=== PATIENT | male | born 1930 | race Caucasian/White ===

== ENCOUNTER 2017-08-16 18:54 | Inpatient (IN) | payer MEDICARE, OTHER ==
[~2017-08-16 18:54] MED LIST: Iopamidol 370 76% 100 ML VIAL ONE
[2017-08-16 20:10] LABS: Hematocrit 37.3 % (42.0-52.0); Mean Platelet Volume 7.7 fL (7.4-10.4); Red Blood Cell (RBC) Count 3.82 mill/uL (4.70-6.10); White Blood Cell (WBC) Count 20.6 thou/uL (4.8-10.8)
[2017-08-16 20:23] LABS: Lactic Acid - Sepsis 2.4 mmol/L (0.5-2.2)
[2017-08-16 20:27] LABS: ALT (SGPT) 13 U/L (8-55); AST (SGOT) 23 U/L (5-34); Alkaline Phosphatase 63 U/L (40-150); Anion Gap 13 mmol/L (10-20); BUN (Urea Nitrogen) 22 mg/dL (8.4-25.7); Bilirubin, Total 1.3 mg/dL (0.2-1.2); Calc. Creatinine Clearance 0 mL/min (70-130); Carbon Dioxide 24 mmol/L (23-31); Chloride 98 mmol/L (98-107); Estimated GFR-MDRD 61; Globulin 3.3 g/dL (2.4-3.5); Lipase 7 U/L (8-78); Protein, Total 6.8 g/dL (5.8-8.1)
[2017-08-16 20:32] LABS: Troponin I 0.082 ng/mL (< 0.028)
[2017-08-16 20:34] LABS: Band 17 % (5-11); Metamyelocyte 2 % (0-0); Neutrophil 65 % (42-75); Polychromasia SLIGHT = 2-3 cells (100X) (0-2/hpf); Reactive Lymphocytes 1 % (0-10)
[2017-08-16 20:36] LABS: Bilirubin Negative (Negative); Blood, Urine Negative (Negative); Glucose, Urine (Dipstick) Negative (Negative); Ketone, Urine Trace mg/dL (Negative); Nitrite Negative (Negative); Protein, Urine (Dipstick) Trace mg/dL (Neg-Trace)
--- NOTE | 2017-08-16 21:27 | RAD ---
AP CHEST: Indication: Vomiting. Comparison: 09-24-14 IMPRESSION: No acute cardiopulmonary abnormality is evident. The examination is similar to the comparison study. COMMENTS: No airspace consolidation is evident. Low lung volumes are again noted. Pulmonary vascular is within normal limits. Vascular calcifications are seen involving the aortic arch. Chronic osseous changes ar e similar. POS: [facility]
[2017-08-16] MEDS ORDERED: Piperacillin/Tazobactam 3.375 GM in Sodium Chloride 0.9% 100 ML IVPB SCH (22:15)
[2017-08-16 22:53] LABS: Troponin I 0.074 ng/mL (< 0.028)
[2017-08-17 01:26] LABS: Troponin I 0.093 ng/mL (< 0.028)
[2017-08-17] MEDS ORDERED: Ondansetron HCl/PF 4 MG/2 ML Vial ONE ×2 (03:48→07:26)
[2017-08-17] MEDS ORDERED: Acetaminophen 325 MG TAB PO PRN (04:45)
[2017-08-17] MEDS ORDERED: Acetaminophen 650 MG Suppository PR PRN (04:45)
--- NOTE | 2017-08-17 05:33 | HP ---
PRIMARY CARE PROVIDER: Eddy Priest. CHIEF COMPLAINT: Fever. HISTORY OF PRESENT ILLNESS: Mr. De La Cruz is a pleasant 87-year-old gentleman who was seen at [facility] on 08/17/2017. By the time I saw him, his family had left. History was obtained from the patient, review of medical records as well as discussion with the emergency room physician. He reportedly had a temperature of 104.2 degrees Fahrenheit 2 days ago. He received Tylenol, and the fever subsided. Yesterday morning, he woke up with fever again and received Tylenol. His fever continued, and patient had rigors. EMS was therefore called. He denies any cough. He denies any chest pain. He denies any diarrhea. He reports vomiting once in the emergency room. He denies any abdominal pain. He denies any dysuria or increased frequency of urination. He reports that all his joints are aching. He also reports left flank pain, but reports that it is chronic from postherpetic neuralgia. REVIEW OF SYSTEMS: The following complete review of systems was negative, unless otherwise mentioned in the HPI or below: Constitutional: Weight loss or gain, sense of well-being, ability to conduct usual activities, exercise tolerance. Skin/Breast: Rash, itching, changes in hair growth or loss, nail changes, breast lumps, tenderness, swelling, nipple discharge. Eyes: Vision, double vision, tearing, blind spots, pain. ENT/Mouth: Headaches (location, time of onset, duration, precipitating factors) , vertigo, lightheadedness, injury. Vision, double vision, tearing, blind spots , pain, nose bleeding, colds, obstruction, discharge, dental difficulties, gingival bleeding, dentures, neck stiffness, pain, tenderness, masses in thyroid or other areas. Cardiovascular: Precordial pain, substernal distress, palpitations, syncope, dyspnea on exertion, orthopnea, nocturnal paroxysmal dyspnea, edema, cyanosis, hypertension, heart murmurs, varicosities, phlebitis, claudication. Respiratory: Pain, shortness of breath, wheezing, stridor, cough, hemoptysis, fever or night sweats. Gastrointestinal: Poor appetite, dysphagia, indigestion, abdominal pain, heartburn, eructation, nausea, vomiting, hematemesis, jaundice, constipation, or diarrhea, abnormal stools (orlando-colored, tarry, bloody, greasy, foul smelling ), flatulence, hemorrhoids, recent changes in bowel habits. Genitourinary: Urgency, frequency, dysuria, nocturia, hematuria, polyuria, oliguria, unusual (or change in) color of urine, stones, hesitancy, change in size of stream, dribbling, acute retention or incontinence, libido, potency. Musculoskeletal: Pain, swelling, redness or heat of muscles or joints, limitation, of motion, muscular weakness, atrophy, cramps. Neurologic/Psychiatric: Convulsions, paralyses, tremor, incoordination, paraesthesias, difficulties with memory of speech, sensory or motor disturbances , or muscular coordination (ataxia, tremor), emotional problems, anxiety, depression, previous psychiatric care, unusual perceptions, hallucinations. Allergy/Immunologic: Skin rash, anemia, bleeding tendency, polydipsia, polyuria , intolerance to heat or cold. PAST MEDICAL HISTORY: Significant for congestive heart failure, diet- controlled diabetes type 2, chronic obstructive pulmonary disease, asthma, and postherpetic neuralgia. PAST SURGICAL HISTORY: Significant for appendectomy and finger repair after a saw accident. ALLERGIES: CIPROFLOXACIN, FELODIPINE, LATEX, LORATADINE, TIOTROPIUM, and VENLAFAXINE. CURRENT MEDICATIONS: Include finasteride 5 mg daily, fosinopril 40 mg 2 times a day, amlodipine 5 mg daily, Alfuzosin 10 mg at bedtime, tramadol 50 mg 3 times a day, Lasix 40 mg daily, metoprolol 12.5 mg 2 times a day, simvastatin 20 mg daily, gabapentin 300 mg 3 times a day, aspirin 81 mg daily. Patient also reportedly uses a lidocaine patch at home. SOCIAL HISTORY: Patient denies tobacco use, alcohol use or recreational drug use. FAMILY HISTORY: Patient denies any family history of premature coronary artery disease. CODE STATUS: I attempted to discuss his code status. I could not obtain his code status. This will need to be reassessed in the daytime. PHYSICAL EXAMINATION: GENERAL: Mr. De La Cruz is awake and alert, not in acute distress. VITAL SIGNS: Blood pressure is 143/50. Pulse is 76. He is breathing at rate of 22 and saturating 92% on 1 liter of oxygen. He is afebrile. EYES: No scleral icterus. No conjunctival pallor. ENT: Moist mucosal membranes, no oropharyngeal erythema or exudates. NECK: Supple, nontender, normal range of movement, trachea is midline. RESPIRATORY: Accessory muscles of breathing are not active. Chest wall movements are symmetric bilaterally. LUNGS: Clear to auscultation without wheeze, rhonchi or crepitations. CARDIOVASCULAR: S1 and S2 are heard, regular. Peripheral pulses palpable. No carotid bruit, no pericardial rub. ABDOMEN: Soft, nontender, bowel sounds heard, no hepatomegaly, no splenomegaly. NEUROLOGIC: Cranial nerves II through XII are intact. Deep tendon reflexes are 2+. MUSCULOSKELETAL: Power is 5/5 in all 4 extremities. 1+ bilateral lower extremity edema. SKIN: Multiple bruises over both upper extremities. LYMPHATIC: No cervical lymphadenopathy. PSYCHIATRIC: Normal mood and normal affect, patient is oriented to person and place, not to time. LABORATORY DATA AND IMAGING: Mr. De La Cruz's labs and investigations were reviewed. I reviewed his electrocardiogram, which shows sinus arrhythmia, no ST changes to suggest an acute coronary syndrome. I also reviewed his chest x- ray, which does not show any pulmonary infiltrates. He also had a CT scan of the abdomen and pelvis. The emergency room physician reports that there was no intraabdominal pathology, but he had developing pneumonia of the left lower lobe. Laboratory investigation showed leukocytosis with 20,600 white cells, of which 65% are neutrophils, 17% are bands, he has macrocytic anemia with hemoglobin 12.5, normal platelet count, elevated lactic acid level of 2.9, indeterminate troponin I of 0.093, elevated BNP of 188.6, decreased sodium of 131, normal potassium, elevated total bilirubin of 1.3, normal creatinine, normal AST, normal ALT and normal alkaline phosphatase. Urinalysis showed trace ketones. ASSESSMENT AND PLAN: Mr. De La Cruz is a pleasant 87-year-old gentleman who was seen at [facility] on 08/17/2017. His problem list includes: 1. Sepsis: Mr. De La Cruz is presenting with sepsis. One potential source of infection is the developing pneumonia seen on chest CT scan. Alternatively, he could have bacteremia. He will be admitted to the hospital and treated with broad spectrum antibiotics in the form of vancomycin and Zosyn. 2. Pneumonia: Suspected, continue Zosyn and vancomycin. 3. Hyponatremia: Mild, provide gentle hydration and recheck his sodium level. 4. Postherpetic neuralgia: Continue tramadol, lidocaine patch, and gabapentin. 5. Indeterminate troponin I, likely due to demand ischemia. Patient denies any chest pain. Continue to monitor. 6. Congestive heart failure. At this point, he is not in volume overload. Provide gentle hydration for sepsis and monitor for volume overload. 7. Hypertension: Monitor vital signs, titrate antihypertensives as needed. Many thanks for allowing me to participate in your patient's care. Please feel free to contact me with any questions or concerns. LEVEL OF RISK: High. LEVEL OF COMPLEXITY: High. MTDD
[2017-08-17] MEDS ORDERED: Acetaminophen 325 MG TAB ONE (05:34)
--- NOTE | 2017-08-17 07:16 | CT ---
CT OF THE ABDOMEN AND PELVIS WITH IV CONTRAST: Indication: History of fever without abdominal pain. Patient does report nausea. Comparison: Prior exam dated 09-24-14. FINDINGS: There a patchy area of peripheral opacity within the left lower lobe which may reflect an area of sub segmental volume loss; however, pneumonia cannot be entirely excluded. There is a small hiatal hernia . The liver and spleen appear within normal limits. The pancreas and adrenal glands are normal appearin g. There are small bilateral renal cysts. No enlarged lymph nodes or free fluid is evident. There are gallstones within the gallbladder. Calcifications involving the abdominal and pelvic vasculature. Prostate is enlarged. There is wall thickening involving the bladder. 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 There is diffuse osteopenia. There is scattered degene rative and osteoarthritic change. IMPRESSION: 1. Patchy opacity in the left lower lobe may reflect area of subsegmental atelectasis or developing p neumonia. Recommend correlation with clinical examination. 2. Prostate enlargement and bladder wall thickening. Bladder wall thickening is likely related to ольга dder outlet obstruction; however,cysttis cannot be entirely excluded. Correlation with urinary labora tory exam. 3. Cholelithiasis. 4. Bilateral renal cysts. 5. Small hiatal hernia. POS: [facility]
[2017-08-17] MEDS ORDERED: Ondansetron HCl/PF 4 MG/2 ML Vial IVP PRN (07:49)
[2017-08-17] MEDS ORDERED: Promethazine HCl 25 MG/ML VIAL ONE (08:25)
[2017-08-17] MEDS ORDERED: Pantoprazole 40 MG VIAL ONE (08:25)
[2017-08-17] MEDS ORDERED: Enoxaparin Sodium 40 MG/0.4 ML SYRINGE ONE (10:12)
[2017-08-17 11:45] VITALS: BMI 30.9
[2017-08-17] MEDS: Piperacillin/Tazobactam 3.375 GM in Sodium Chloride 0.9% 100 ML IVPB SCH ×2 (13:11→16:59)
[2017-08-17] MEDS: Vancomycin HCl 1 GM in Premix Bag 1 BAG IVPB SCH ×2 (13:12→20:59)
[2017-08-17] MEDS: Gabapentin 300 MG CAP PO SCH ×3 (13:12→20:58)
[2017-08-17] MEDS: Lidocaine 5% Patch TD SCH (13:13)
[2017-08-17] MEDS: Enoxaparin Sodium 40 MG/0.4 ML SYRINGE SC SCH (13:19)
[2017-08-17] MEDS: traMADol HCl 50 MG TAB PO PRN (13:24)
[2017-08-17 14:17] LABS: #Lymphocytes 1.4 thou/uL (1.20-3.40); #Monocytes 1.1 thou/uL (0.11-0.59); #Neutrophils 12.3 thou/uL (1.40-6.50); %Eosinophils 0.1 % (0.0-10.0); %Lymphocytes 9.1 % (21.0-51.0); %Monocytes 7.6 % (0.0-10.0); Hematocrit 35.6 % (42.0-52.0); Mean Platelet Volume 8.1 fL (7.4-10.4); Red Blood Cell (RBC) Count 3.64 mill/uL (4.70-6.10); White Blood Cell (WBC) Count 14.9 thou/uL (4.8-10.8)
[2017-08-17 14:18] LABS: Lactic Acid - Sepsis 1.9 mmol/L (0.5-2.2)
[2017-08-17 14:22] LABS: Anion Gap 12 mmol/L (10-20); BUN (Urea Nitrogen) 40 mg/dL (8.4-25.7); Calc. Creatinine Clearance 64 mL/min (70-130); Calcium 8.5 mg/dL (7.8-10.44); Carbon Dioxide 24 mmol/L (23-31); Chloride 99 mmol/L (98-107); Estimated GFR-MDRD 59
[2017-08-17] MEDS ORDERED: VANCOMYCIN IVPB PRN (14:24)
[2017-08-17] MEDS ORDERED: FLU VACC TS2017-18 (>65YR) 0.5 ML SYRINGE IM ONE (21:00)
[2017-08-18] MEDS: Piperacillin/Tazobactam 3.375 GM in Sodium Chloride 0.9% 100 ML IVPB SCH ×3 (01:01→11:12)
[2017-08-18] MEDS: Lidocaine Patch Removal 1 EACH TOP SCH ×2 (01:09→20:15)
[2017-08-18 06:17] LABS: #Eosinphils 0.1 thou/uL (0.0-0.7); #Lymphocytes 1.4 thou/uL (1.20-3.40); #Monocytes 1.2 thou/uL (0.11-0.59); #Neutrophils 9.6 thou/uL (1.40-6.50); %Basophils 0.3 % (0.0-1.0); %Eosinophils 0.6 % (0.0-10.0); %Lymphocytes 11.6 % (21.0-51.0); Hematocrit 35.5 % (42.0-52.0); Red Blood Cell (RBC) Count 3.63 mill/uL (4.70-6.10); White Blood Cell (WBC) Count 12.4 thou/uL (4.8-10.8)
[2017-08-18 06:30] LABS: Anion Gap 11 mmol/L (10-20); BUN (Urea Nitrogen) 42 mg/dL (8.4-25.7); Calc. Creatinine Clearance 79 mL/min (70-130); Calcium 8.6 mg/dL (7.8-10.44); Carbon Dioxide 26 mmol/L (23-31); Chloride 99 mmol/L (98-107); Estimated GFR-MDRD 75; Magnesium 1.9 mg/dL (1.6-2.6)
[2017-08-18] MEDS: traMADol HCl 50 MG TAB PO PRN ×2 (07:33→13:39)
[2017-08-18] MEDS: Lidocaine 5% Patch TD SCH (07:34)
[2017-08-18] MEDS: Vancomycin HCl 1 GM in Premix Bag 1 BAG IVPB SCH (07:34)
[2017-08-18] MEDS: Gabapentin 300 MG CAP PO SCH ×3 (07:34→20:15)
[2017-08-18] MEDS: Enoxaparin Sodium 40 MG/0.4 ML SYRINGE SC SCH (07:41)
--- NOTE | 2017-08-18 13:17 | PDOC.PN ---
- Subjective Encounter Start Date: 08/18/17 Encounter Start Time: 07:50 Pt feeling better today. No F/C, no N/V/D/C, no CP, no SOB, no cough or sputum , no GI bleed, no abd pain thigh less red and tender, no complaining of acute on chronic lateral right lower leg pain and tenderness to light touch. 10 point ROS performed and neg for all systems except as per HPI - Objective Resuscitation Status: full MAR Reviewed: Yes Vital Signs & Weight: Vital Signs (12 hours) Temp Pulse Resp BP Pulse Ox 08/18/17 11:36 98.5 F 86 18 120/66 90 L 08/18/17 08:00 97.8 F 80 22 H 135/73 94 L 08/18/17 04:00 98.7 F 83 18 134/64 93 L Weight Weight 228 lb 2.855 oz Most Recent Monitor Data Heart Rate from ECG 81 NIBP 122/41 NIBP BP-Mean 69 Respiration from ECG 16 SpO2 98 I&O: 08/17/17 08/18/17 08/19/17 06:59 06:59 06:59 Intake Total 1710 Output Total 915 Balance 795 Result Diagrams: 08/18/17 05:43 08/18/17 05:43 Additional Labs: Accuchecks 08/17/17 13:23 POC Glucose 218 H Radiology Reviewed by me: Yes EKG Reviewed by me: Yes Phys Exam - Physical Examination Constitutional: NAD HEENT: PERRLA, moist MMs, sclera anicteric, oral pharynx no lesions Neck: no nodes, no JVD, supple, full ROM Respiratory: no wheezing, no rales, no rhonchi, clear to auscultation bilateral Cardiovascular: no significant murmur, no rub, irregular Gastrointestinal: soft, non-tender, no distention, positive bowel sounds Musculoskeletal: pulses present, edema present right lower laterla leg red and war, tender, 2+ edema Neurological: non-focal, normal sensation, moves all 4 limbs Lymphatic: no nodes Psychiatric: normal affect, A&O x 3 Skin: no rash, normal turgor, cap refill <2 seconds Dx/Plan (1) Cellulitis of right lower extremity Code(s): L03.115 - CELLULITIS OF RIGHT LOWER LIMB Status: Acute Comment: RLE , lateral leg. change to clinda for 72 hours fo toxin inhibition and ancef (2) Bacteremia due to group B Streptococcus Code(s): R78.81 - BACTEREMIA Status: Acute Comment: 2/2 sets from admit positive, repeat 08/17 neg so far (3) COPD (chronic obstructive pulmonary disease) Status: Chronic Qualifiers: COPD type: unspecified COPD Qualified Code(s): J44.9 - Chronic obstructive pulmonary disease, unspecified (4) Diabetes Code(s): E11.9 - TYPE 2 DIABETES MELLITUS WITHOUT COMPLICATIONS Status: Chronic Qualifiers: Diabetes mellitus type: type 2 Diabetes mellitus complication status: with kidney complications Diabetes mellitus complication detail: with chronic kidney disease Diabetes mellitus termite control service representative insulin use: with halfway use Chronic kidney disease stage: stage 3 (moderate) Qualified Code(s): E11.22 - Type 2 diabetes mellitus with diabetic chronic kidney disease; N18.3 - Chronic kidney disease, stage 3 (moderate); N18.3 - Chronic kidney disease, stage 3 ( moderate); Z79.4 - nursing home (current) use of insulin; Z79.4 - nursing home ( current) use of insulin; Z79.4 - nursing home (current) use of insulin; Z79.4 - nursing home (current) use of insulin (5) Hypertension Code(s): I10 - ESSENTIAL (PRIMARY) HYPERTENSION Status: Chronic Qualifiers: Hypertension type: essential hypertension Qualified Code(s): I10 - Essential (primary) hypertension (6) Postherpetic neuralgia Code(s): B02.29 - OTHER POSTHERPETIC NERVOUS SYSTEM INVOLVEMENT Status: Chronic - Plan cont current plan of care, continue antibiotics, PT/OT, social organization professor * .
[2017-08-18] MEDS ORDERED: CEFAZOLIN 2 GM in Sodium Chloride 0.9% 100 ML IVPB SCH (14:00)
[2017-08-18] MEDS: Clindamycin/D5W 900 MG in Premix Bag 1 BAG IVPB SCH ×2 (14:19→20:15)
[2017-08-18] MEDS: CEFAZOLIN/Water 2 GM/20 ML SYRINGE SLOW IVP SCH ×2 (14:19→20:15)
[2017-08-19] MEDS: CEFAZOLIN/Water 2 GM/20 ML SYRINGE SLOW IVP SCH ×3 (04:44→20:06)
[2017-08-19] MEDS: Clindamycin/D5W 900 MG in Premix Bag 1 BAG IVPB SCH (04:44)
[2017-08-19 05:59] LABS: #Eosinphils 0.4 thou/uL (0.0-0.7); #Lymphocytes 1.5 thou/uL (1.20-3.40); #Monocytes 1.4 thou/uL (0.11-0.59); %Basophils 0.1 % (0.0-1.0); %Eosinophils 3.5 % (0.0-10.0); %Lymphocytes 12.4 % (21.0-51.0); %Monocytes 11.2 % (0.0-10.0); Hematocrit 33.4 % (42.0-52.0); Red Blood Cell (RBC) Count 3.42 mill/uL (4.70-6.10); White Blood Cell (WBC) Count 12.3 thou/uL (4.8-10.8)
[2017-08-19 06:17] LABS: Anion Gap 9 mmol/L (10-20); BUN (Urea Nitrogen) 30 mg/dL (8.4-25.7); Calc. Creatinine Clearance 89 mL/min (70-130); Calcium 8.6 mg/dL (7.8-10.44); Carbon Dioxide 28 mmol/L (23-31); Chloride 100 mmol/L (98-107); Estimated GFR-MDRD 86; Magnesium 1.9 mg/dL (1.6-2.6)
[2017-08-19] MEDS: Gabapentin 300 MG CAP PO SCH ×3 (07:47→20:06)
[2017-08-19] MEDS: Enoxaparin Sodium 40 MG/0.4 ML SYRINGE SC SCH (07:47)
[2017-08-19] MEDS: Lidocaine 5% Patch TD SCH (07:48)
--- NOTE | 2017-08-19 15:38 | PDOC.PN ---
- Subjective Encounter Start Date: 08/19/17 Encounter Start Time: 11:00 Pt feeling better, just got done with PT andis worn out, about to get a bed bath and take a nap no F/c, no N/V/D/C, less pain to right lower leg, no chils or rigors. cookie po fine. cookie ab 10 point ROS performed and neg for all except as per hPI - Objective MAR Reviewed: Yes Vital Signs & Weight: Vital Signs (12 hours) Temp Pulse Resp BP Pulse Ox 08/19/17 08:00 98.2 F 80 20 133/64 97 Weight Weight 228 lb 2.855 oz Most Recent Monitor Data Heart Rate from ECG 81 NIBP 122/41 NIBP BP-Mean 69 Respiration from ECG 16 SpO2 98 I&O: 08/18/17 08/19/17 08/20/17 06:59 06:59 06:59 Intake Total 1710 550 480 Output Total 915 Balance 795 550 480 Result Diagrams: 08/19/17 04:48 08/19/17 04:47 Radiology Reviewed by me: Yes EKG Reviewed by me: Yes Phys Exam - Physical Examination Constitutional: NAD HEENT: PERRLA, moist MMs, sclera anicteric, oral pharynx no lesions Neck: no nodes, no JVD, supple, full ROM Respiratory: no wheezing, no rales, no rhonchi, clear to auscultation bilateral Cardiovascular: RRR, no significant murmur, no rub Gastrointestinal: soft, non-tender, no distention, positive bowel sounds Musculoskeletal: pulses present, edema present Neurological: non-focal, normal sensation, moves all 4 limbs Lymphatic: no nodes Psychiatric: normal affect, A&O x 3 Skin: no rash, normal turgor, cap refill <2 seconds Dx/Plan (1) Cellulitis of right lower extremity Code(s): L03.115 - CELLULITIS OF RIGHT LOWER LIMB Status: Acute Comment: RLE , lateral leg. anceg IV. GBS resistnat to Clinda, so clinda stopped. (2) Bacteremia due to group B Streptococcus Code(s): R78.81 - BACTEREMIA Status: Acute Comment: 2/2 sets from admit positive, repeat 12/4 neg so far. needs 14 days total of Iv equivalent rx, would trnasition to po levoflox to complete 14 days total, and add in po keflex 500 tID to compelte 14 days for bactericidal activity against his strep cellulitis (3) COPD (chronic obstructive pulmonary disease) Status: Chronic Qualifiers: COPD type: unspecified COPD Qualified Code(s): J44.9 - Chronic obstructive pulmonary disease, unspecified (4) Diabetes Code(s): E11.9 - TYPE 2 DIABETES MELLITUS WITHOUT COMPLICATIONS Status: Chronic Qualifiers: Diabetes mellitus type: type 2 Diabetes mellitus complication status: with kidney complications Diabetes mellitus complication detail: with chronic kidney disease Diabetes mellitus assisted insulin use: with assisted use Chronic kidney disease stage: stage 3 (moderate) Qualified Code(s): E11.22 - Type 2 diabetes mellitus with diabetic chronic kidney disease; N18.3 - Chronic kidney disease, stage 3 (moderate); N18.3 - Chronic kidney disease, stage 3 ( moderate); Z79.4 - terminal system operator (current) use of insulin; Z79.4 - alf ( current) use of insulin; Z79.4 - alf (current) use of insulin; Z79.4 - terminal system operator (current) use of insulin (5) Hypertension Code(s): I10 - ESSENTIAL (PRIMARY) HYPERTENSION Status: Chronic Qualifiers: Hypertension type: essential hypertension Qualified Code(s): I10 - Essential (primary) hypertension (6) Postherpetic neuralgia Code(s): B02.29 - OTHER POSTHERPETIC NERVOUS SYSTEM INVOLVEMENT Status: Chronic - Plan cont current plan of care, continue antibiotics, 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
[2017-08-19] MEDS: Lidocaine Patch Removal 1 EACH TOP SCH (20:07)
[2017-08-20] MEDS: CEFAZOLIN/Water 2 GM/20 ML SYRINGE SLOW IVP SCH ×3 (04:57→20:05)
[2017-08-20 05:14] LABS: #Basophils 0.1 thou/uL (0.0-0.2); #Eosinphils 0.3 thou/uL (0.0-0.7); #Lymphocytes 2.1 thou/uL (1.20-3.40); #Monocytes 1.5 thou/uL (0.11-0.59); %Basophils 1.1 % (0.0-1.0); %Eosinophils 2.2 % (0.0-10.0); %Monocytes 11.5 % (0.0-10.0); Hematocrit 37.8 % (42.0-52.0); Mean Platelet Volume 7.8 fL (7.4-10.4); Red Blood Cell (RBC) Count 3.89 mill/uL (4.70-6.10); White Blood Cell (WBC) Count 12.9 thou/uL (4.8-10.8)
[2017-08-20 05:38] LABS: Anion Gap 13 mmol/L (10-20); BUN (Urea Nitrogen) 20 mg/dL (8.4-25.7); Calc. Creatinine Clearance 102 mL/min (70-130); Calcium 9.1 mg/dL (7.8-10.44); Carbon Dioxide 26 mmol/L (23-31); Chloride 100 mmol/L (98-107); Estimated GFR-MDRD Greater than 90; Magnesium 1.9 mg/dL (1.6-2.6)
[2017-08-20] MEDS: Lidocaine 5% Patch TD SCH (07:42)
[2017-08-20] MEDS: Gabapentin 300 MG CAP PO SCH ×3 (07:43→20:05)
[2017-08-20] MEDS: Enoxaparin Sodium 40 MG/0.4 ML SYRINGE SC SCH (07:43)
--- NOTE | 2017-08-20 12:31 | PDOC.PN ---
- Subjective Encounter Start Date: 08/20/17 Encounter Start Time: 12:30 doing a little better no f/c no n/v - Objective MAR Reviewed: Yes Vital Signs & Weight: Vital Signs (12 hours) Temp Pulse Resp BP Pulse Ox 08/20/17 08:00 98.1 F 72 22 H 159/57 H 98 Weight Weight 228 lb 2.855 oz Most Recent Monitor Data Heart Rate from ECG 81 NIBP 122/41 NIBP BP-Mean 69 Respiration from ECG 16 SpO2 98 I&O: 08/19/17 08/20/17 08/21/17 06:59 06:59 06:59 Intake Total 550 1110 240 Output Total 300 450 Balance 550 810 -210 Result Diagrams: 08/20/17 04:57 08/20/17 04:57 Phys Exam - Physical Examination Constitutional: NAD HEENT: PERRLA Neck: no JVD Respiratory: no wheezing Cardiovascular: no significant murmur Gastrointestinal: non-tender rt ankle swelling, erythema extending from ankle to groin of rt leg Neurological: normal sensation Psychiatric: A&O x 3 Dx/Plan (1) Sepsis Code(s): A41.9 - SEPSIS, UNSPECIFIED ORGANISM Status: Acute (2) Bacteremia due to group B Streptococcus Code(s): R78.81 - BACTEREMIA Status: Acute Comment: 2/2 sets from admit positive, repeat 08/17 neg so far. needs 14 days total of Iv equivalent rx, would trnasition to po levoflox to complete 14 days total, and add in po keflex 500 tID to compelte 14 days for bactericidal activity against his strep cellulitis (3) Cellulitis of right lower extremity Code(s): L03.115 - CELLULITIS OF RIGHT LOWER LIMB Status: Acute Comment: RLE , lateral leg. anceg IV. GBS resistnat to Clinda, so clinda stopped. (4) Diabetes Code(s): E11.9 - TYPE 2 DIABETES MELLITUS WITHOUT COMPLICATIONS Status: Chronic Qualifiers: Diabetes mellitus type: type 2 Diabetes mellitus complication status: with kidney complications Diabetes mellitus complication detail: with chronic kidney disease Diabetes mellitus termination clerk insulin use: with termination clerk use Chronic kidney disease stage: stage 3 (moderate) Qualified Code(s): E11.22 - Type 2 diabetes mellitus with diabetic chronic kidney disease; N18.3 - Chronic kidney disease, stage 3 (moderate); N18.3 - Chronic kidney disease, stage 3 ( moderate); Z79.4 - prison (current) use of insulin; Z79.4 - prison ( current) use of insulin; Z79.4 - prison (current) use of insulin; Z79.4 - long term care phlebotomist (current) use of insulin (5) Hypertension Code(s): I10 - ESSENTIAL (PRIMARY) HYPERTENSION Status: Chronic Qualifiers: Hypertension type: essential hypertension Qualified Code(s): I10 - Essential (primary) hypertension - Plan * cont abx * monitor clinically * xray rt ankle * f/u labs
[2017-08-20 12:38] LABS: Anion Gap 8 mmol/L (10-20); BUN (Urea Nitrogen) 19 mg/dL (8.4-25.7); Calc. Creatinine Clearance 108 mL/min (70-130); Calcium 8.6 mg/dL (7.8-10.44); Carbon Dioxide 31 mmol/L (23-31); Chloride 101 mmol/L (98-107); Estimated GFR-MDRD Greater than 90
--- NOTE | 2017-08-20 15:56 | RAD ---
THREE VIEWS OF THE RIGHT ANKLE 08/20/17 INDICATION: Right ankle pain. FINDINGS: There is prominent osteopenia of the right foreleg, hindfoot and visualized midfoot. No definite acut e fracture is evident. There are Monckeberg calcifications within the soft tissues. There is diffuse soft tissue edema of the lower right foreleg and visualized foot. IMPRESSION: 1. Diffuse osteopenia. 2. No acute fracture or subluxation. 3. Prominent soft tissue swelling of the right lower extremity. POS: [facility]
[2017-08-20] MEDS: Lidocaine Patch Removal 1 EACH TOP SCH (20:06)
[2017-08-20] MEDS ORDERED: Albuterol Sulfate 2.5 mg/3 ml Neb NEB PRN (20:32)
[2017-08-20] MEDS: Albuterol Sulfate 2.5 mg/3 ml Neb NEB SCH (23:15)
[2017-08-21] MEDS: Albuterol Sulfate 2.5 mg/3 ml Neb NEB SCH ×6 (02:52→22:19)
[2017-08-21] MEDS: CEFAZOLIN/Water 2 GM/20 ML SYRINGE SLOW IVP SCH (05:29)
[2017-08-21 05:45] LABS: #Eosinphils 0.2 thou/uL (0.0-0.7); #Lymphocytes 1.6 thou/uL (1.20-3.40); #Monocytes 1.1 thou/uL (0.11-0.59); #Neutrophils 6.2 thou/uL (1.40-6.50); %Basophils 0.1 % (0.0-1.0); %Eosinophils 2.7 % (0.0-10.0); %Monocytes 11.5 % (0.0-10.0); Hematocrit 33.5 % (42.0-52.0); Mean Platelet Volume 7.5 fL (7.4-10.4); Red Blood Cell (RBC) Count 3.44 mill/uL (4.70-6.10); White Blood Cell (WBC) Count 9.1 thou/uL (4.8-10.8)
[2017-08-21] MEDS ORDERED: Amlodipine 10 MG TAB PO SCH (06:00)
[2017-08-21] MEDS: Budesonide 0.5 MG/2 ML NEB INH SCH ×2 (06:03→18:30)
[2017-08-21] MEDS ORDERED: PROVENTIL INHALER 6.7 G (200 INHALATIONS) INH PRN (08:23)
[2017-08-21] MEDS ORDERED: Amlodipine 5 MG TAB PO SCH (09:00)
[2017-08-21] MEDS ORDERED: Non-Formulary Item 1 EACH (Budesonide-Formoterol [Symbicort 160-4.5] 2 PUFF) INH SCH (09:00)
[2017-08-21] MEDS: Lidocaine 5% Patch TD SCH (09:02)
[2017-08-21] MEDS: Enoxaparin Sodium 40 MG/0.4 ML SYRINGE SC SCH (09:02)
[2017-08-21] MEDS: Gabapentin 300 MG CAP PO SCH ×3 (09:02→20:24)
[2017-08-21] MEDS: Furosemide 40 MG TAB PO SCH (09:05)
[2017-08-21] MEDS: Metoprolol Tartrate 25 MG TAB PO SCH ×2 (09:05→20:24)
[2017-08-21] MEDS: Aspirin 81 mg Enteric Coated Tablet PO SCH (09:05)
[2017-08-21] MEDS: Finasteride 5 MG TAB PO SCH (09:10)
--- NOTE | 2017-08-21 10:31 | PDOC.PN ---
- Subjective Encounter Start Date: 08/21/17 Encounter Start Time: 10:50 Subjective: Patient with continued swelling of RLE worse with ambulation. No fever. -: Ambulating well with home walker and has daughter and son at home -: to help him get around. Doesn't want rehab. - Objective MAR Reviewed: Yes Vital Signs & Weight: Vital Signs (12 hours) Temp Pulse Resp BP BP Pulse Ox 08/21/17 09:36 67 16 95 08/21/17 07:53 98.4 F 67 16 188/68 H 95 08/21/17 06:25 98.5 F 74 18 178/66 H 96 08/21/17 06:23 74 178/66 H 08/21/17 06:03 74 16 96 08/21/17 02:52 72 18 98 08/21/17 01:12 97.7 F 75 20 186/68 H 98 08/20/17 23:15 76 22 H 96 Weight Weight 228 lb 2.855 oz Most Recent Monitor Data Heart Rate from ECG 81 NIBP 122/41 NIBP BP-Mean 69 Respiration from ECG 16 SpO2 98 I&O: 08/20/17 08/21/17 08/22/17 06:59 06:59 06:59 Intake Total 1110 720 120 Output Total 300 450 Balance 810 270 120 Result Diagrams: 08/21/17 04:28 08/20/17 11:55 Phys Exam - Physical Examination Constitutional: NAD HEENT: moist MMs Respiratory: no wheezing, no rales, no rhonchi Cardiovascular: RRR Gastrointestinal: soft, positive bowel sounds Edema to RLE up to groin, erythema bright to right mondragon, mild to posterior knee and thigh in dependent edema area. Neurological: non-focal, moves all 4 limbs Psychiatric: normal affect, A&O x 3 Dx/Plan (1) Bacteremia due to group B Streptococcus Code(s): R78.81 - BACTEREMIA Status: Acute Comment: 2/2 sets from admit positive, repeat 08/17 neg so far. needs 14 days total of Iv equivalent rx, would trnasition to po levoflox to complete 14 days total, and add in po keflex 500 tID to compelte 14 days for bactericidal activity against his strep cellulitis (2) Cellulitis of right lower extremity Code(s): L03.115 - CELLULITIS OF RIGHT LOWER LIMB Status: Acute Comment: RLE , mostle to mondragon, GBS resistnat to Clinda, so clinda stopped. Will treat edema with compression wraps. (3) Sepsis Code(s): A41.9 - SEPSIS, UNSPECIFIED ORGANISM Status: Acute (4) Diabetes Code(s): E11.9 - TYPE 2 DIABETES MELLITUS WITHOUT COMPLICATIONS Status: Chronic Qualifiers: Diabetes mellitus type: type 2 Diabetes mellitus complication status: with kidney complications Diabetes mellitus complication detail: with chronic kidney disease Diabetes mellitus dedicated intermodal truck driver insulin use: with dedicated intermodal truck driver use Chronic kidney disease stage: stage 3 (moderate) Qualified Code(s): E11.22 - Type 2 diabetes mellitus with diabetic chronic kidney disease; N18.3 - Chronic kidney disease, stage 3 (moderate); N18.3 - Chronic kidney disease, stage 3 ( moderate); Z79.4 - intermediate (current) use of insulin; Z79.4 - intermediate ( current) use of insulin; Z79.4 - oil heaterman (current) use of insulin; Z79.4 - oil heaterman (current) use of insulin (5) Hypertension Code(s): I10 - ESSENTIAL (PRIMARY) HYPERTENSION Status: Chronic Qualifiers: Hypertension type: essential hypertension Qualified Code(s): I10 - Essential (primary) hypertension Comment: Resume JOSELINE-I (6) Postherpetic neuralgia Code(s): B02.29 - OTHER POSTHERPETIC NERVOUS SYSTEM INVOLVEMENT Status: Chronic - Plan cont current plan of care, continue antibiotics, PT/OT Leukocytosis resolved, will transition to oral abx today, D/C tomorrow if -: tolerating well. Patient with RW at home, help from children. -: Patient does have redness up to groin, but only bright red is on mondragon, ass -: with edema, will have PT do compression raps to extremity. * . - Discharge Day Encounter end time: 11:10
[2017-08-21] MEDS: traMADol HCl 50 MG TAB PO PRN ×2 (14:20→20:35)
[2017-08-21] MEDS: Cephalexin 250 MG CAP PO SCH ×2 (14:21→20:23)
[2017-08-21] MEDS: Simvastatin 20 MG TAB PO SCH (20:24)
[2017-08-21] MEDS: Lidocaine Patch Removal 1 EACH TOP SCH (20:32)
[2017-08-21] MEDS ORDERED: (Alfuzosin Hcl [Alfuzosin Hcl Er] 10 MG) PO SCH (21:00)
[2017-08-22] MEDS ORDERED: Melatonin 3 MG TAB PO SCH (01:00)
[2017-08-22] MEDS: Albuterol Sulfate 2.5 mg/3 ml Neb NEB SCH ×4 (02:44→18:19)
[2017-08-22 05:29] LABS: #Eosinphils 0.5 thou/uL (0.0-0.7); #Lymphocytes 1.6 thou/uL (1.20-3.40); #Monocytes 1.1 thou/uL (0.11-0.59); %Basophils 0.1 % (0.0-1.0); %Eosinophils 5.2 % (0.0-10.0); %Lymphocytes 17.4 % (21.0-51.0); %Monocytes 11.8 % (0.0-10.0); Hematocrit 31.9 % (42.0-52.0); Mean Platelet Volume 6.9 fL (7.4-10.4); Red Blood Cell (RBC) Count 3.29 mill/uL (4.70-6.10); White Blood Cell (WBC) Count 9.2 thou/uL (4.8-10.8)
[2017-08-22] MEDS: Budesonide 0.5 MG/2 ML NEB INH SCH ×2 (05:49→18:19)
[2017-08-22 06:46] LABS: Anion Gap 10 mmol/L (10-20); BUN (Urea Nitrogen) 17 mg/dL (8.4-25.7); Calc. Creatinine Clearance 113 mL/min (70-130); Calcium 8.2 mg/dL (7.8-10.44); Carbon Dioxide 30 mmol/L (23-31); Chloride 100 mmol/L (98-107); Estimated GFR-MDRD Greater than 90
[2017-08-22] MEDS ORDERED: Clopidogrel Bisulfate 75 MG TAB ONE (06:48)
[2017-08-22] MEDS: Lidocaine 5% Patch TD SCH (08:13)
[2017-08-22] MEDS: Metoprolol Tartrate 25 MG TAB PO SCH ×2 (08:14→20:08)
[2017-08-22] MEDS: Amlodipine 10 MG TAB PO SCH (08:14)
[2017-08-22] MEDS: Aspirin 81 mg Enteric Coated Tablet PO SCH (08:14)
[2017-08-22] MEDS: Gabapentin 300 MG CAP PO SCH ×3 (08:14→20:08)
[2017-08-22] MEDS: Enoxaparin Sodium 40 MG/0.4 ML SYRINGE SC SCH (08:15)
[2017-08-22] MEDS: Furosemide 40 MG TAB PO SCH (08:15)
[2017-08-22] MEDS: Finasteride 5 MG TAB PO SCH (08:18)
[2017-08-22] MEDS: traMADol HCl 50 MG TAB PO PRN ×2 (08:18→20:12)
--- NOTE | 2017-08-22 08:39 | PDOC.PN ---
- Subjective Encounter Start Date: 08/22/17 Encounter Start Time: 11:00 Subjective: Patient feeling a little better. Not on home dose of Gabapentin so post-her -: petic neuralgia acting up. Pain behind right knee and in right leg. Redness -: unchanged. - Objective MAR Reviewed: Yes Vital Signs & Weight: Vital Signs (12 hours) Temp Pulse Resp BP Pulse Ox 08/22/17 08:14 68 08/22/17 07:36 97.9 F 68 16 173/69 H 95 08/22/17 05:49 75 14 95 08/22/17 05:01 97.9 F 62 18 144/70 H 97 08/22/17 02:44 12 93 L 08/22/17 02:29 95 08/21/17 22:19 73 16 96 08/21/17 22:18 98.6 F 73 20 96 Weight Weight 228 lb 2.855 oz Most Recent Monitor Data Heart Rate from ECG 81 NIBP 122/41 NIBP BP-Mean 69 Respiration from ECG 16 SpO2 98 I&O: 08/21/17 08/22/17 08/23/17 06:59 06:59 06:59 Intake Total 720 1360 350 Output Total 450 1200 450 Balance 270 160 -100 Result Diagrams: 08/22/17 04:16 08/22/17 04:16 Phys Exam - Physical Examination Constitutional: NAD HEENT: moist MMs Respiratory: no wheezing, no rales, no rhonchi Cardiovascular: RRR Gastrointestinal: soft 1+ dependent edema to entire RLE, erythema to mondragon only, appears stable Neurological: non-focal, moves all 4 limbs Psychiatric: normal affect, A&O x 3 Dx/Plan (1) Bacteremia due to group B Streptococcus Code(s): R78.81 - BACTEREMIA Status: Acute Comment: 2/2 sets from admit positive, repeat 08/17 neg so far. needs 14 days total of Iv equivalent rx, would trnasition to po levoflox to complete 14 days total, and add in po keflex 500 tID to compelte 14 days for bactericidal activity against his strep cellulitis (2) Cellulitis of right lower extremity Code(s): L03.115 - CELLULITIS OF RIGHT LOWER LIMB Status: Acute Comment: RLE , mostle to mondragon, GBS resistnat to Clinda, so clinda stopped. Will treat edema with compression wraps. (3) Sepsis Code(s): A41.9 - SEPSIS, UNSPECIFIED ORGANISM Status: Acute (4) Diabetes Code(s): E11.9 - TYPE 2 DIABETES MELLITUS WITHOUT COMPLICATIONS Status: Chronic Qualifiers: Diabetes mellitus type: type 2 Diabetes mellitus complication status: with kidney complications Diabetes mellitus complication detail: with chronic kidney disease Diabetes mellitus extermination inspector insulin use: with snf use Chronic kidney disease stage: stage 3 (moderate) Qualified Code(s): E11.22 - Type 2 diabetes mellitus with diabetic chronic kidney disease; N18.3 - Chronic kidney disease, stage 3 (moderate); N18.3 - Chronic kidney disease, stage 3 ( moderate); 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; Z79.4 - intermediate school teacher ( current) use of insulin; Z79.4 - detention (current) use of insulin; 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 Afebrile. -: Will try compression wraps on extremity. Will arrange home health for wound -: care and compression wraps for edema. Anticipate d/c on Thursday once Home -: Health arranged and compression wraps started. * . - Discharge Day Encounter end time: 11:40
[2017-08-22] MEDS: Cephalexin 250 MG CAP PO SCH ×3 (09:46→20:08)
[2017-08-22] MEDS ORDERED: traMADol HCl 50 MG TAB PO SCH (15:00)
[2017-08-22] MEDS: Simvastatin 20 MG TAB PO SCH (20:08)
[2017-08-22] MEDS: Lidocaine Patch Removal 1 EACH TOP SCH (20:08)
[2017-08-23] MEDS: Albuterol Sulfate 2.5 mg/3 ml Neb NEB SCH ×4 (02:18→19:41)
[2017-08-23] MEDS: Budesonide 0.5 MG/2 ML NEB INH SCH ×2 (05:55→19:45)
[2017-08-23] MEDS: Lidocaine 5% Patch TD SCH (07:45)
[2017-08-23] MEDS: Cephalexin 250 MG CAP PO SCH ×3 (07:45→20:49)
[2017-08-23] MEDS: Gabapentin 300 MG CAP PO SCH ×3 (07:47→20:50)
[2017-08-23] MEDS: Finasteride 5 MG TAB PO SCH (07:48)
[2017-08-23] MEDS: Enoxaparin Sodium 40 MG/0.4 ML SYRINGE SC SCH (07:48)
[2017-08-23] MEDS: Metoprolol Tartrate 25 MG TAB PO SCH ×2 (07:48→20:50)
[2017-08-23] MEDS: Furosemide 40 MG TAB PO SCH (07:48)
[2017-08-23] MEDS: Aspirin 81 mg Enteric Coated Tablet PO SCH (07:48)
[2017-08-23] MEDS: Amlodipine 10 MG TAB PO SCH (07:49)
[2017-08-23] MEDS: traMADol HCl 50 MG TAB PO PRN ×2 (11:11→20:50)
--- NOTE | 2017-08-23 15:34 | PDOC.PN ---
- Subjective Encounter Start Date: 08/23/17 Encounter Start Time: 10:00 Subjective: feels better, moves his right LE well - Objective MAR Reviewed: Yes Vital Signs & Weight: Vital Signs (12 hours) Temp Pulse Resp BP Pulse Ox 08/23/17 11:40 80 14 95 08/23/17 08:00 98.5 F 78 20 95 08/23/17 07:51 98.5 F 78 20 184/66 H 92 L 08/23/17 07:49 72 08/23/17 05:55 72 16 94 L Weight Weight 228 lb 2.855 oz Most Recent Monitor Data Heart Rate from ECG 81 NIBP 122/41 NIBP BP-Mean 69 Respiration from ECG 16 SpO2 98 I&O: 08/22/17 08/23/17 08/24/17 06:59 06:59 06:59 Intake Total 1360 1790 480 Output Total 1200 2000 Balance 160 -210 480 Result Diagrams: 08/22/17 04:16 08/22/17 04:16 Phys Exam - Physical Examination HEENT: PERRLA, moist MMs Neck: no JVD, supple Respiratory: no wheezing, no rales Cardiovascular: RRR, no significant murmur Gastrointestinal: soft, non-tender, positive bowel sounds Musculoskeletal: pulses present right leg there is erythema and edema++ Neurological: non-focal, moves all 4 limbs Psychiatric: A&O x 3 Dx/Plan (1) Bacteremia due to group B Streptococcus Code(s): R78.81 - BACTEREMIA Status: Acute (2) Cellulitis of right lower extremity Code(s): L03.115 - CELLULITIS OF RIGHT LOWER LIMB Status: Acute Comment: RLE , mostle to mondragon, GBS resistnat to Clinda, so clinda stopped. Will treat edema with compression wraps. 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 Status: Chronic Qualifiers: Diabetes mellitus type: type 2 Diabetes mellitus complication status: with kidney complications Diabetes mellitus complication detail: with chronic kidney disease Diabetes mellitus longterm insulin use: with longterm use Chronic kidney disease stage: stage 3 (moderate) Qualified Code(s): E11.22 - Type 2 diabetes mellitus with diabetic chronic kidney disease; N18.3 - Chronic kidney disease, stage 3 (moderate); N18.3 - Chronic kidney disease, stage 3 ( moderate); Z79.4 - longterm (current) use of insulin; 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; 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; 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 Review of Systems - Medications/Allergies Allergies/Adverse Reactions: Allergies Allergy/AdvReac Type Severity Reaction Status Date / Time ciprofloxacin [From Cipro] Allergy Verified 09/24/14 03:31 ciprofloxacin HCl Allergy Verified 09/24/14 03:31 [From Cipro] felodipine Allergy Verified 09/24/14 03:31 loratadine Allergy Verified 09/24/14 03:31 tiotropium bromide Allergy Verified 09/24/14 03:31 [From Spiriva with HandiHaler] venlafaxine HCl Allergy Verified 09/24/14 03:31 [From Effexor] Medications: Current Medications Acetaminophen (Tylenol) 650 mg PO Q4H PRN PRN Reason: Headache/Fever or Pain Last Admin: 08/22/17 03:00 Dose: 650 mg Acetaminophen (Tylenol) 650 mg [place] Q4H PRN PRN Reason: Headache/Fever or Pain Albuterol Sulfate (Ventolin) 2.5 mg NEB Q2H PRN PRN Reason: SOB &/or Wheezing Albuterol Sulfate (Proventil Hfa) 2 puff INH Q4H PRN PRN Reason: SOB &/or Wheezing Albuterol Sulfate (Ventolin) 2.5 mg NEB [id number] [facility] Last Admin: 08/23/17 11:40 Dose: 2.5 mg Amlodipine Besylate (Norvasc) 10 mg PO DAILY [facility] Last Admin: 08/23/17 07:49 Dose: 10 mg Aspirin (Ecotrin) 81 mg PO DAILY [facility] Last Admin: 08/23/17 07:48 Dose: 81 mg Budesonide (Pulmicort Neb Solution) 0.5 mg INH BID-RT [facility] Last Admin: 08/23/17 05:55 Dose: 0.5 mg Cephalexin (Keflex) 500 mg PO TID [facility] Last Admin: 08/23/17 15:09 Dose: 500 mg Enoxaparin Sodium (Lovenox) 40 mg SC 0900 [facility] Last Admin: 08/23/17 07:48 Dose: 40 mg Finasteride (Proscar) 5 mg PO DAILY [facility] Last Admin: 08/23/17 07:48 Dose: 5 mg Fosinopril Sodium (Monopril) 40 mg PO BID [facility] Last Admin: 08/23/17 07:45 Dose: 40 mg Furosemide (Lasix) 40 mg PO DAILY [facility] Last Admin: 08/23/17 07:48 Dose: 40 mg Gabapentin (Neurontin) 900 mg PO TID [facility] Last Admin: 08/23/17 15:09 Dose: 900 mg Levofloxacin (Levaquin) 500 mg PO 0600 [facility] Last Admin: 08/23/17 05:51 Dose: 500 mg Lidocaine (Lidoderm 5% Patch) 1 patch TD DAILY [facility] Last Admin: 08/23/17 07:45 Dose: 1 patch Metoprolol Tartrate (Lopressor) 12.5 mg PO BID [facility] Last Admin: 08/23/17 07:48 Dose: 12.5 mg Miscellaneous Medication (Lidocaine Patch Removal) 1 each TOP 2100 [facility] Last Admin: 08/22/17 20:08 Dose: 1 each Ondansetron HCl (Zofran) 4 mg IVP Q4H PRN PRN Reason: Nausea/Vomiting (Alfuzosin Hcl [ Alfuzosin Hcl Er] 10 Mg) 0 each PO QPM [facility] Simvastatin (Zocor) 20 mg PO QPM [facility] Last Admin: 08/22/17 20:08 Dose: 20 mg Sodium Chloride (Flush - Normal Saline) 10 ml IVF Q12HR [facility] Last Admin: 08/23/17 07:49 Dose: 10 ml Sodium Chloride (Flush - Normal Saline) 10 ml IVF PRN PRN PRN Reason: Saline Flush Last Admin: 08/20/17 04:57 Dose: 10 ml Tramadol HCl (Ultram) 50 mg PO Q6H PRN PRN Reason: Pain Last Admin: 08/23/17 11:11 Dose: 50 mg
[2017-08-23] MEDS: Simvastatin 20 MG TAB PO SCH (20:50)
[2017-08-23] MEDS: Lidocaine Patch Removal 1 EACH TOP SCH (20:51)
[2017-08-24] MEDS: Albuterol Sulfate 2.5 mg/3 ml Neb NEB SCH ×2 (01:02→08:34)
[2017-08-24] MEDS: Aspirin 81 mg Enteric Coated Tablet PO SCH (08:16)
[2017-08-24] MEDS: Gabapentin 300 MG CAP PO SCH (08:17)
[2017-08-24] MEDS: Furosemide 40 MG TAB PO SCH (08:17)
[2017-08-24] MEDS: Amlodipine 10 MG TAB PO SCH (08:18)
[2017-08-24] MEDS: Metoprolol Tartrate 25 MG TAB PO SCH (08:18)
[2017-08-24] MEDS: Cephalexin 250 MG CAP PO SCH (08:18)
[2017-08-24] MEDS: Finasteride 5 MG TAB PO SCH (08:18)
[2017-08-24] MEDS: Lidocaine 5% Patch TD SCH (08:19)
[2017-08-24] MEDS: Enoxaparin Sodium 40 MG/0.4 ML SYRINGE SC SCH (08:20)
[2017-08-24] MEDS: Budesonide 0.5 MG/2 ML NEB INH SCH (08:36)
--- NOTE | 2017-08-24 11:34 | PDOC.PN ---
- Subjective Encounter Start Date: 08/24/17 Encounter Start Time: 07:00 Subjective: feels better, wants to go home -: has amb 70ft with rw -: has compression bandage at home - Objective MAR Reviewed: Yes Vital Signs & Weight: Vital Signs (12 hours) Temp Pulse Resp BP Pulse Ox 08/24/17 09:49 91 L 08/24/17 08:34 79 16 95 08/24/17 08:00 98.4 F 79 16 08/24/17 07:28 98.4 F 77 18 163/71 H 97 08/24/17 07:00 95 08/24/17 01:02 12 Weight Weight 228 lb 2.855 oz Most Recent Monitor Data Heart Rate from ECG 81 NIBP 122/41 NIBP BP-Mean 69 Respiration from ECG 16 SpO2 98 I&O: 08/23/17 08/24/17 08/25/17 06:59 06:59 06:59 Intake Total 1790 1680 Output Total 1999 Balance -210 1680 Result Diagrams: 08/22/17 04:16 08/22/17 04:16 Phys Exam - Physical Examination HEENT: PERRLA, moist MMs Neck: no JVD, supple Respiratory: no wheezing, no rales Cardiovascular: RRR, no significant murmur Gastrointestinal: soft, non-tender, positive bowel sounds Musculoskeletal: pulses present, edema present Right LE has erythema and edema++ Neurological: non-focal, moves all 4 limbs Psychiatric: A&O x 3 Dx/Plan (1) Bacteremia due to group B Streptococcus Code(s): R78.81 - BACTEREMIA Status: Acute (2) Cellulitis of right lower extremity Code(s): L03.115 - CELLULITIS OF RIGHT LOWER LIMB Status: Acute Comment: RLE , mostle to mondragon, GBS resistnat to Clinda, so clinda stopped. Will treat edema with compression wraps. 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 Status: Chronic Qualifiers: Diabetes mellitus type: type 2 Diabetes mellitus complication status: with kidney complications Diabetes mellitus complication detail: with chronic kidney disease Diabetes mellitus senior care insulin use: with senior care use Chronic kidney disease stage: stage 3 (moderate) Qualified Code(s): E11.22 - Type 2 diabetes mellitus with diabetic chronic kidney disease; N18.3 - Chronic kidney disease, stage 3 (moderate); N18.3 - Chronic kidney disease, stage 3 ( moderate); 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; Z79.4 - superintendent marine oil terminal ( current) use of insulin; 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; 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 Review of Systems - Medications/Allergies Allergies/Adverse Reactions: Allergies Allergy/AdvReac Type Severity Reaction Status Date / Time ciprofloxacin [From Cipro] Allergy Verified 09/24/14 03:31 ciprofloxacin HCl Allergy Verified 09/24/14 03:31 [From Cipro] felodipine Allergy Verified 09/24/14 03:31 loratadine Allergy Verified 09/24/14 03:31 tiotropium bromide Allergy Verified 09/24/14 03:31 [From Spiriva with HandiHaler] venlafaxine HCl Allergy Verified 09/24/14 03:31 [From Effexor] Medications: Current Medications Acetaminophen (Tylenol) 650 mg PO Q4H PRN PRN Reason: Headache/Fever or Pain Last Admin: 08/22/17 03:00 Dose: 650 mg Acetaminophen (Tylenol) 650 mg [place] Q4H PRN PRN Reason: Headache/Fever or Pain Albuterol Sulfate (Ventolin) 2.5 mg NEB Q2H PRN PRN Reason: SOB &/or Wheezing Albuterol Sulfate (Proventil Hfa) 2 puff INH Q4H PRN PRN Reason: SOB &/or Wheezing Albuterol Sulfate (Ventolin) 2.5 mg NEB [id number] [facility] Last Admin: 08/24/17 08:34 Dose: 2.5 mg Amlodipine Besylate (Norvasc) 10 mg PO DAILY [facility] Last Admin: 08/24/17 08:18 Dose: 10 mg Aspirin (Ecotrin) 81 mg PO DAILY [facility] Last Admin: 08/24/17 08:16 Dose: 81 mg Budesonide (Pulmicort Neb Solution) 0.5 mg INH BID-RT [facility] Last Admin: 08/24/17 08:36 Dose: 0.5 mg Cephalexin (Keflex) 500 mg PO TID [facility] Last Admin: 08/24/17 08:18 Dose: 500 mg Enoxaparin Sodium (Lovenox) 40 mg SC 0900 [facility] Last Admin: 08/24/17 08:20 Dose: 40 mg Finasteride (Proscar) 5 mg PO DAILY [facility] Last Admin: 08/24/17 08:18 Dose: 5 mg Fosinopril Sodium (Monopril) 40 mg PO BID [facility] Last Admin: 08/24/17 08:18 Dose: 40 mg Furosemide (Lasix) 40 mg PO DAILY [facility] Last Admin: 08/24/17 08:17 Dose: 40 mg Gabapentin (Neurontin) 900 mg PO TID [facility] Last Admin: 08/24/17 08:17 Dose: 900 mg Levofloxacin (Levaquin) 500 mg PO 0600 [facility] Last Admin: 08/24/17 05:45 Dose: 500 mg Lidocaine (Lidoderm 5% Patch) 1 patch TD DAILY [facility] Last Admin: 08/24/17 08:19 Dose: Not Given Metoprolol Tartrate (Lopressor) 12.5 mg PO BID [facility] Last Admin: 08/24/17 08:18 Dose: 12.5 mg Miscellaneous Medication (Lidocaine Patch Removal) 1 each TOP 2100 [facility] Last Admin: 08/23/17 20:51 Dose: 1 each Ondansetron HCl (Zofran) 4 mg IVP Q4H PRN PRN Reason: Nausea/Vomiting (Alfuzosin Hcl [ Alfuzosin Hcl Er] 10 Mg) 0 each PO QPM [facility] Simvastatin (Zocor) 20 mg PO QPM [facility] Last Admin: 08/23/17 20:50 Dose: 20 mg Sodium Chloride (Flush - Normal Saline) 10 ml IVF Q12HR [facility] Last Admin: 08/24/17 08:19 Dose: 10 ml Sodium Chloride (Flush - Normal Saline) 10 ml IVF PRN PRN PRN Reason: Saline Flush Last Admin: 08/20/17 04:57 Dose: 10 ml Tramadol HCl (Ultram) 50 mg PO Q6H PRN PRN Reason: Pain Last Admin: 08/23/17 20:50 Dose: 50 mg
[2017-08-24 11:44] VITALS: BP 132/62; TEMP 98.2
--- NOTE | 2017-08-24 19:41 | DIS ---
DATE OF ADMISSION: 08/17/2017 DATE OF DISCHARGE: 08/24/2017 DISCHARGE DISPOSITION: To home with home health. PRIMARY DISCHARGE DIAGNOSIS: Group B streptococcal bacteremia due to cellulitis of right lower extremity and sepsis. SECONDARY DISCHARGE DIAGNOSES: Chronic obstructive pulmonary disease, diabetes mellitus type 2, hypertension, postherpetic neuralgia, chronic anemia. PROCEDURES DONE DURING HOSPITALIZATION: The patient has had abdominal and pelvic CAT scan done on the day of admission which showed patchy opacity in the left lower lobe may reflect subsegmental atelectasis, prostate enlargement, cholelithiasis, bilateral renal cysts, small hiatal hernia. Chest x-ray done showed no airspace consolidation. Aortic arch calcifications were seen. Ankle x-ray showed diffuse osteopenia, no acute fracture or subluxation was seen. Prominent soft tissue swelling of the right lower extremity. Blood cultures x2 grew Strep agalactia group B sensitive to all antibiotics except clindamycin. Influenza A and B antigens were negative. Had a white count of 20,000 on the day of admission with discharge numbers of 9. He had 17% bands on the day of admission. Discharge BUN and creatinine were 17 and 0.6. Admitting BUN and creatinine were 22 and 1.1. Troponin I 0.008, CK-MB 2.0. DISCHARGE MEDICATIONS: The patient to continue Levaquin 500 mg p.o. daily for another 10 days, Keflex 500 mg p.o. 3 times daily for another 10 days, Proscar 5 mg p.o. q.p.m., fosinopril 40 mg p.o. twice daily, Lasix 40 mg p.o. daily, gabapentin 900 mg p.o. 3 times daily, lidocaine transdermal patch once daily, Lopressor 12.5 mg p.o. twice daily, Zocor 20 mg p.o. q.p.m., Ultram p.r.n. for pain, Symbicort inhaler 2 puffs twice daily, aspirin 81 mg p.o. daily, Norvasc 5 mg p.o. daily, alfuzosin extended release 10 mg p.o. q.p.m., albuterol inhaler q.4 hourly p.r.n. ALLERGIES: FELODIPINE, LORATADINE, TIOTROPIUM, and VENLAFAXINE. DISCHARGE PLAN: The patient to follow up with primary care physician in 1 week. BRIEF COURSE DURING HOSPITALIZATION: The patient initially came to ER with complaints of fever. He had a temperature of 104.2 degrees prior to arrival. The patient had left lower extremity cellulitis on clinical exam. Ren cultures were obtained and the patient was placed on broad spectrum IV antibiotics. He was admitted for sepsis along with demand ischemia due to sepsis. His blood cultures came back positive for group B Strep agalactia resistant to clindamycin , but sensitive to all other antibiotics. The patient was transitioned to Levaquin and Keflex. The patient has tolerated Levaquin during his stay here with no untoward events, although he says he was allergic to CIPROFLOXACIN on prior occasion. He needs to continue these two antibiotics for a total of 10 days. The patient also has lower extremity compression devices at home and has been counseled to wear them at all times when he is upright. He needs to follow up with his primary care physician in one week prior to discontinuing antibiotics. He has ambulated 72-feet with rolling walker. He has refused rehab or swing bed and wants to go home. Home health with physical therapy will be arranged prior to discharge via case management. Please see a face to face documentation on [facility] for the day of discharge. ANTOINE
--- NOTE | 2017-08-26 21:45 | ULT ---
DATE: 08/21/2017 LOWER EXTREMITY DOPPLER ULTRASOUND Bilateral lower extremity ultrasound was performed of Mr. De La Cruz. On the right femoral, popliteal, posterior tibial and dorsalis pedis, waveforms are all normal in caliber. Segmental pressures were not able to be determined due to noncompressibility of his arterial system. On the left, femoral waveform is significantly depressed, indicating inflow disease - iliac or common femoral disease. Popliteal, posterior tibial, and dorsalis pedis waveforms are nicely peaked. Agai n, the arteries are noncompressible. Subsegmental pressure determination was not able to be performe d. IMPRESSION: Normal right arterial waveforms. On the left, there is inflow disease of questionable s ignificance due to the good waveforms distally in the left leg. POS: [facility]
== END 2017-08-24 13:35 | disposition home health service (06) | DRG 871 ==
LOC: ERS 18:54 → ERHOLD 22:00 → CCU 08-17 11:35 → T4-A 08-17 23:53
PROVIDERS: ADMIT Internal Medicine; ATTEND Internal Medicine
DX: A40.1 Sepsis due to streptococcus, group B (principal); J18.9 Pneumonia, unspecified organism; I13.0 Hypertensive heart and chronic kidney disease with heart failure and stage 1 through stage 4 chronic kidney disease, or unspecified chronic kidney disease; E11.22 Type 2 diabetes mellitus with diabetic chronic kidney disease; I50.9 Heart failure, unspecified; J44.0 Chronic obstructive pulmonary disease with (acute) lower respiratory infection; L03.115 Cellulitis of right lower limb; E87.1 Hypo-osmolality and hyponatremia; B02.29 Other postherpetic nervous system involvement; N18.3 Chronic kidney disease, stage 3 (moderate); D63.1 Anemia in chronic kidney disease; Z79.4 Long term (current) use of insulin
CPT/HCPCS: 36415; 36416; 51701; 71010; 74177; 80048; 80053; 80202; 81003; 82271; 82553; 83605; 83690; 83735; 83880; 84484; 85025; 87040; 87077; 87086; 87149; 87186; 93005; 93923; 94640; 94760; 96361; 96365; 96367; 96368; 96372; 96374; 96375; 96376; A4216; C9113; G8978-GP-CM; G8979-GP-CJ; G8996-GN-CJ; G8997-GN-CI; J1650; J1956; J2405; J2543; J2550; J3370; J3490; J7050; J7611; J7626

== ENCOUNTER 2018-03-19 11:09 | Inpatient (IN) | payer MEDICARE, OTHER ==
[2018-03-19 12:10] LABS: ALT (SGPT) 16 U/L (8-55); AST (SGOT) 27 U/L (5-34); Albumin 3.5 g/dL (3.4-4.8); Alkaline Phosphatase 56 U/L (40-150); Anion Gap 14 mmol/L (10-20); BUN (Urea Nitrogen) 46 mg/dL (8.4-25.7); Bilirubin, Total 1.1 mg/dL (0.2-1.2); Calc. Creatinine Clearance 0 mL/min (70-130); Calcium 8.9 mg/dL (7.8-10.44); Carbon Dioxide 29 mmol/L (23-31); Chloride 97 mmol/L (98-107); Estimated GFR-MDRD 34; Globulin 2.7 g/dL (2.4-3.5); Glucose 275 mg/dL (83-110); Potassium 4.7 mmol/L (3.5-5.1); Protein, Total 6.2 g/dL (5.8-8.1); Sodium 135 mmol/L (136-145)
[2018-03-19 12:12] LABS: INR-International Normal Ratio 1.3; PTT 32.9 SEC (22.9-36.1); Prothrombin Time 16.7 SEC (12.0-14.7)
[2018-03-19] MEDS ORDERED: Iopamidol 370 76% 50 ML VIAL FS ONE (12:14)
[2018-03-19 12:16] LABS: Band 32 % (5-11); Hemoglobin 12.2 g/dL (14.0-18.0); Lymphocytes 9 % (21-51); MDiff Complete? YES; Mean Corpuscular HGB CONC 34.2 g/dL (32.0-36.0); Mean Corpuscular Hemoglobin 32.7 pg (27.0-31.0); Mean Corpuscular Volume 95.4 fL (78.0-98.0); Mean Platelet Volume 8.5 fL (7.4-10.4); Metamyelocyte 1 % (0-0); Monocytes 7 % (0-10); Neutrophil 50 % (42-75); PLT Morphology Comment Appears Decreased; Platelet Count 113 thou/uL (130-400); RBC Distribution Width 11.9 % (11.5-14.5); RBC Morphology Normal; Reactive Lymphocytes 1 % (0-10); Red Blood Cell (RBC) Count 3.73 mill/uL (4.70-6.10); White Blood Cell (WBC) Count 16.7 thou/uL (4.8-10.8)
--- NOTE | 2018-03-19 12:40 | ULT ---
RIGHT LOWER EXTREMITY VENOUS DUPLEX EXAM: Indications: Right lower extremity redness and pain. Technique: Veins of right lower extremity evaluated with color doppler, spectral analysis and tyrel heather. FINDINGS: Deep veins show normal blood flow and compression. No evidence of DVT identified. IMPRESSION: NO evidence of right lower extremity DVT. POS: [facility]
[2018-03-19] MEDS ORDERED: Metoclopramide HCl 10 MG/2 ML VIAL ONE (14:30)
[2018-03-19] MEDS ORDERED: Piperacillin/Tazobactam 4.5 GM in Sodium Chloride 0.9% 100 ML IVPB SCH (15:15)
--- NOTE | 2018-03-19 15:22 | RAD ---
CHEST 1 VIEW: HISTORY: Fever. COMPARISON: 08/16/17. FINDINGS: Cardiac silhouette is magnified by projection. Pulmonary vasculature is upper limits of normal. Med iastinum is midline with aortic calcification. No lobar consolidation or evidence of pneumothorax. Defibrillator patchy overlies the right axilla. satellite project site monitor leads overlie the chest. IMPRESSION: 1. Atherosclerosis. 2. No acute cardiopulmonary abnormality are apparent. POS: [facility]
--- NOTE | 2018-03-19 15:40 | CT ---
CT ABDOMEN AND PELVIS NONCONTRAST: History: Abdominal pain. Comparison: 08-16-17 FINDINGS: Each renal collecting system, ureter and urinary bladder are decompressed without stone evident. Lack of contrast limits evaluation for other abnormalities. Small hiatal hernia. Calcifications in th e dependent portion of the gallbladder. Calcifications throughout the arterial structures. Oral contrast was administered. It only extends into the proximal small bowel, but there is no eviden ce of obstruction. Prostate gland is 6.6 cm transverse diameter and contain dystrophic calcification. Degenerative changes throughout the lumbar spine. Cyst at the inferior pole of each kidney. Reactive appearing lymph nodes along each inguinal chain. IMPRESSION: 1. No CT evidence of urinary tract obstruction or calcification. 2. Cholelithiasis. 3. Small hiatal hernia. 4. Atherosclerosis. POS: [facility]
[2018-03-19 15:49] LABS: CRP (Inflammatory) 15.93 mg/dL (= or < 0.5); Magnesium 2.1 mg/dL (1.6-2.6); Phosphorus 3.1 mg/dL (2.3-4.7)
[2018-03-19 15:52] LABS: CKMB 4.2 ng/mL (0-6.6); Troponin I 0.119 ng/mL (< 0.028)
[2018-03-19] MEDS ORDERED: Vancomycin HCl 1 GM in Premix Bag 1 BAG IVPB SCH (16:30)
[2018-03-19] MEDS ORDERED: Pantoprazole 40 MG VIAL IVP SCH (16:30)
[2018-03-19] MEDS ORDERED: Nitroglycerin 0.4 MG TAB (25 Tab Bottle) PO PRN (16:31)
[2018-03-19] MEDS ORDERED: Dextrose 5% in Water 1,000 ML IV PRN (16:32)
[2018-03-19] MEDS ORDERED: Dextrose 50% Abboject 50 ML SYRINGE SLOW IVP PRN (16:32)
[2018-03-19] MEDS ORDERED: Ondansetron ODT 4 MG TAB PO PRN (16:33)
[2018-03-19] MEDS ORDERED: Senokot 8.6 MG TAB PO PRN (16:33)
[2018-03-19] MEDS ORDERED: Acetaminophen 650 MG Suppository PR PRN (16:33)
[2018-03-19] MEDS ORDERED: Calcium Carbonate 500 MG ChewTAB PO PRN (16:33)
[2018-03-19] MEDS ORDERED: Ondansetron HCl/PF 4 MG/2 ML Vial IVP PRN (16:33)
[2018-03-19] MEDS ORDERED: Acetaminophen 325 MG TAB PO PRN (16:33)
[2018-03-19] MEDS ORDERED: Mag-Al 1200 mg/1200 mg/30 ML UDCUP PO PRN (16:33)
--- NOTE | 2018-03-19 16:55 | HP ---
DATE OF ADMISSION: 03/19/2018 PRIMARY CARE PHYSICIAN: Tomeka Guo. CHIEF COMPLAINT: Fever and chills last night with hematemesis earlier today. HISTORY OF PRESENT ILLNESS: The patient is an 87-year-old white male with diabetes mellitus type 2, COPD, streptococcal bacteremia secondary to cellulitis in 08/2017, presented to the emergency room wi th above complaints. History obtained from the patient and the family at the bedside. Yesterday, natalia dowell had low grade fever with intermittent chills. The family checked his temperature, which was sl ightly over 99. He also had some discomfort and redness over his right leg. He felt dizzy and weak as well. This morning, he had vomiting which was coffee ground. He currently takes aspirin. The pa in in the right lower extremity was moderate without any aggravating or relieving factor. No chest p ain, shortness of breath, syncope, sick contacts reported. He denies any urinary symptoms. In the emergency room, patient was found to have high-degree AV block. Blood cultures and urine cult ures were ordered. He was started on vancomycin and Zosyn. PAST MEDICAL HISTORY: 1. Group B Streptococcal bacteremia secondary to cellulitis in August of last year. 2. Postherpetic neuralgia for last 7 years. 3. Chronic anemia. 4. Hypertension. 5. Diabetes mellitus type 2. 6. Chronic obstructive pulmonary disease. 7. History of DVT in the past. PAST SURGICAL HISTORY: 1. Appendectomy. 2. Finger repair after a saw accident. ALLERGIES: Patient is allergic to CIPROFLOXACIN, LORATADINE, SPIRIVA, VENLAFAXINE and LATEX. CURRENT HOME MEDICATIONS: Family to provide accurate list of medications. He takes tramadol and moisés apentin for postherpetic neuralgia 4 times a day. It is unclear whether he takes beta blockers. He takes 81 mg aspirin on daily basis. SOCIAL HISTORY: Patient currently lives at home with family. He makes his own decisions. He is F[employer] L [employer]. The family is at the bedside. FAMILY HISTORY: Negative for heart disease or malignancy. REVIEW OF SYSTEMS: The following complete review of systems was negative, unless otherwise mentioned in the HPI or below: Constitutional: Weight loss or gain, ability to conduct usual activities. Skin: Rash, itching. Eyes: Double vision, pain. ENT/Mouth: Nose bleeding, neck stiffness, pain, tenderness. Cardiovascular: Palpitations, dyspnea on exertion, orthopnea. Respiratory: Shortness of breath, wheezing, cough, hemoptysis, fever or night sweats. Gastrointestinal: Poor appetite, abdominal pain, heartburn, nausea, vomiting, constipation, or diarr hea. Genitourinary: Urgency, frequency, dysuria, nocturia. Musculoskeletal: Pain, swelling. Neurologic/Psychiatric: Anxiety, depression. Allergy/Immunologic: Skin rash, bleeding tendency. PHYSICAL EXAMINATION: VITAL SIGNS: Last vital signs showed temperature 98.7 with pulse rate of 42, blood pressure 134/41 w ith respiration of 12-16. GENERAL: An 87-year-old male sick appearing. HEENT: Head is atraumatic, normocephalic. Sclerae are anicteric. Dry mucous membranes. No oral le heather. NECK: Supple, no JVD appreciated. No carotid bruit. LUNGS: Showed diminished air entry at bases. No significant wheezing or rhonchi noted. Lungs were symmetrical. No accessory muscle use. HEART: S1 and S2 present, bradycardic, 2/6 systolic murmur over the mitral area. No heaves or pulsa tion. ABDOMEN: Soft, distended, bowel sounds were present. There was mild generalized tenderness on deep palpation. Otherwise, abdominal examination was benign. EXTREMITIES: Right lower extremity erythema up to the knee. There was warmth and tenderness along w ith 1+ edema as well. Left lower extremity did not have any swelling or redness. SKIN: As discussed above. LYMPH NODES: No palpable lymph nodes in the neck or groin. PERIPHERAL VASCULAR: Radial pulses palpable bilaterally, low volume. NEUROLOGIC: Grossly nonfocal, moves all four extremities. PSYCHIATRIC: Alert, awake, oriented x3. LABORATORY DATA AND IMAGING DATA: 1. CBC showed WBC of 16.7 with hemoglobin 12.2, hematocrit 35.6, platelet of 113. 2. INR 1.3, PT 16.7. 3. Chemistries showed sodium 135, potassium 4.7, chloride 97, bicarbonate 29, BUN 46, creatinine 1.8 9, glucose of 275, lactic acid 3.1, magnesium and phosphorus in normal range. CRP was 15.9. TSH was normal. Troponin was 0.119 with CK-MB of 4.2. 4. Stool for occult blood was negative. 5. Gastric occult blood was positive. 6. Right lower extremity ultrasound was negative for DVT. 7. Chest x-ray by my review was negative for infiltrate. 8. CT scan of the abdomen and pelvis was negative for acute findings. It showed cholelithiasis with small hiatal hernia. 9. EKG by my review showed second degree AV block. IMPRESSION: 1. Sepsis with acute organ dysfunction secondary to right lower extremity cellulitis with suspected bacteremia. 2. High-degree AV block. 3. Upper gastrointestinal bleeding. 4. Acute kidney injury. 5. Lactic acidosis secondary to sepsis. 6. Elevated troponins, probably secondary to sepsis and demand ischemia. 7. Elevated inflammatory markers, CRP was 15.9. 8. Thrombocytopenia, probably secondary to sepsis. 9. Diabetes mellitus type 2. 10. Hypertension. 11. Cholelithiasis. 12. Chronic obstructive pulmonary disease. 13. Postherpetic neuralgia on tramadol and gabapentin. 14. Benign prostatic hypertrophy. PLAN: The patient will be monitored in the Intensive Care Unit secondary to high-degree AV block. W e will consult Cardiology and Electrophysiology. Blood cultures have been sent. We will get urinaly sis and urine culture as well. He has been started on vancomycin and Zosyn. We will repeat lactic a hemanth after 4 hours. We will continue IV fluids for acute kidney injury. We will continue selected ho me medications once confirmed. We will resume tramadol and gabapentin every 6 hours, which he takes at home. We will repeat labs on daily basis. Gastroenterology will be consulted for upper gastroint estinal bleeding. We will monitor hemoglobin and hematocrit closely. Plan of care was discussed with the patient and the family at the bedside. They stated understanding .
[2018-03-19] MEDS ORDERED: Pantoprazole 40 MG VIAL ONE (17:34)
[2018-03-19 18:14] LABS: Bilirubin Negative (Negative); Blood, Urine Negative (Negative); Clarity CLEAR (Clear); Glucose, Urine (Dipstick) Negative (Negative); Leukocyte Negative (Negative); Nitrite Negative (Negative); Protein, Urine (Dipstick) Trace mg/dL (Neg-Trace); Specific Gravity, Urine 1.026 (1.002-1.036); Urobilinogen 0.2 mg/dL (0.2-1.0)
[2018-03-19] MEDS ORDERED: Lidocaine 1% (PF) 30 ML VIAL ONE (19:25)
[2018-03-19 20:06] LABS: Lactic Acid 1.8 mmol/L (0.5-2.2)
[2018-03-19 20:32] VITALS: BMI 32.1
--- NOTE | 2018-03-19 20:39 | CON ---
DATE OF CONSULTATION: 03/19/2018 GASTROENTEROLOGY CONSULTATION CHIEF COMPLAINT: Vomited blood. HISTORY OF PRESENT ILLNESS: Mr. De La Cruz is an 87-year-old man who presented to the emergency room t rutihe with recurrent cellulitis of the lower extremity and sepsis type picture. He woke up this morni ng early with vomiting. He vomited coffee ground looking material. He had a bowel movement this ericka cortes which was brown and nonbloody. He has had multiple episodes this afternoon again with coffee gr ound appearing emesis. He has had no chest pain or shortness of breath, but he has developed a junct ional heart rhythm and is being evaluated by Cardiology for a temporary pacemaker placement. He is b eing admitted by the hospitalist service for IV antibiotics. GI was consulted to evaluate GI bleed. He was admitted several months ago, also with cellulitis of the lower extremity and had nausea and v omiting at that time with initial onset as well. He has never had an endoscopy or peptic ulcer befor e. He gets occasional heartburn around once in a month, which he takes Tums for it, that resolves th e symptoms. He has no abdominal pain now. No blood in the stool. PAST MEDICAL HISTORY: Cellulitis in 08/2017, congestive heart failure, diabetes mellitus type 2, TRIMMER BUFFING WHEEL D, asthma, and postherpetic neuralgia. PAST SURGICAL HISTORY: Appendectomy. FAMILY HISTORY: Negative for GI malignancies. SOCIAL HISTORY: No alcohol, tobacco or drugs. ALLERGIES: CIPROFLOXACIN, FELODIPINE, LATEX, LORATADINE, TIOTROPIUM and VENLAFAXINE. OUTPATIENT MEDICATIONS: Fosinopril, finasteride, tramadol, aspirin, gabapentin, simvastatin, Lasix, tamsulosin, Levsin, vitamin C, vitamin B. PHYSICAL EXAMINATION: VITAL SIGNS: Blood pressure 128/46, pulse 75, originally however, his pulses dropped down into the 4 0s now, temperature 98.7. GENERAL: He is in no acute distress, alert and oriented x3. LUNGS: Clear to auscultation bilaterally. HEART: Bradycardic, S1 and S2. ABDOMEN: Soft, nontender, nondistended. Bowel sounds are present. LABORATORY DATA: White blood cell count 16.7, hemoglobin 12.2, platelets 113. INR 1.3, bilirubin 1. 1, AST 27, ALT 16, alkaline phosphatase 56. IMPRESSION: Coffee ground emesis. He most likely has gastritis; however, he could have a Tata-We iss tear. He has acute onset of nausea and vomiting associated with cellulitis which occurred with h is last episode of cellulitis and sepsis as well. At this point, I would just treat him with a rafaela n pump inhibitor and check an H. pylori antibody. He has normal brown stool today and fecal occult b lood negative. If he starts developing more significant overt bleeding, then endoscopy can be perfor med. RECOMMENDATIONS: 1. Pantoprazole 40 mg twice daily. 2. Follow trend of the hemoglobin. 3. Check H. pylori stool antigen.
[2018-03-19 20:54] LABS: Hemoglobin 12.2 g/dL (14.0-18.0)
[2018-03-19] MEDS ORDERED: Gabapentin 300 MG CAP PO SCH (21:00)
[2018-03-19 21:17] LABS: Troponin I 0.095 ng/mL (< 0.028)
[2018-03-19] MEDS: Sodium Chloride 0.9% 1,000 ML IV SCH (21:25)
--- NOTE | 2018-03-19 21:36 | CON ---
DATE OF CONSULT: 03/19/18 TIME: 45 minutes. HISTORY OF PRESENT ILLNESS: The patient is an 87-year-old gentleman who presented with weakness and was noted to have a slow heart rate. The patient has a previous history of congestive heart failure. He also has diabetes mellitus. The patient has been admitted in August of this year with sepsis. The patient has presented with recurrent weakness, nausea, and was noted to have a very slow heart rate. PAST MEDICAL HISTORY: 1. Congestive heart failure. 2. Hypertension. 3. Diabetes mellitus. 4. Chronic obstructive pulmonary disease. PAST SURGICAL HISTORY: Appendectomy and finger surgery. ALLERGIES: Ciprofloxacin, felodipine, loratadine and Phenyloxipin. MEDICATIONS: See nursing list. PHYSICAL EXAMINATION GENERAL: Ill-appearing gentleman with a blood pressure of 134/41 and a heart rate of 42. NECK: Full. LUNGS: Clear to auscultation. HEART: Regular rate and rhythm, normal S1, S2. ABDOMEN: Extended. EXTREMITIES: Showed no edema. LABORATORY DATA: White blood count 16.7, hemoglobin 12.2, hematocrit 35.6, platelets are 113. Sodium 135, potassium 4.7, chloride 97, bicarbonate 29, BUN 46, creatinine 1.89. His troponin was 0.119. His EKG revealed normal sinus rhythm, right bundle block and a left anterior fascicular block. EKG #2 revealed normal sinus rhythm with second degree Mobitz type II heart block. IMPRESSION: 1. 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 2. Hypertension. 3. Chronic obstructive pulmonary disease. 4. Diabetes mellitus. 5. Cellulitis. This gentleman presents with cellulitis and second degree heart block. Patient will undergo placement of a lack temporary electronic pacemaker Dr. Winter has been contacted. We will follow this patient with you through his hospitalization. [facility]
[2018-03-19] MEDS: traMADol HCl 50 MG TAB PO SCH (21:39)
[2018-03-19] MEDS: Docusate 100 MG CAP PO SCH (21:40)
[2018-03-19] MEDS: Piperacillin/Tazobactam 3.375 GM in Sodium Chloride 0.9% 100 ML IVPB SCH (21:40)
[2018-03-19] MEDS: Pantoprazole 40 MG VIAL IVP SCH (21:40)
--- NOTE | 2018-03-19 21:40 | PDOC.EVN ---
Event Note - Event Note Event Note: as per pt written directives updates verified by family and pt to RN DNI status ok to resuscitate
[2018-03-19] MEDS: Insulin Regular 300 UNITS/3 ML VIAL SC PRN (21:41)
[2018-03-19] MEDS: CEFAZOLIN/Water 2 GM/20 ML SYRINGE SLOW IVP SCH (21:57)
--- NOTE | 2018-03-19 22:47 | ULT ---
LEFT LOWER EXTREMITY VENOUS ULTRASOUND: 03/19/18 HISTORY: Left lower extremity pain and edema. Previous history of DVT. COMPARISON: 01/30/10. TECHNIQUE: Multiplanar winkler scale and color doppler images were obtained in a left lower extremity venous ultras ound. Spectral analysis of the doppler waveforms were performed. FINDINGS: The left common femoral vein, profunda femoral vein, superficial femoral vein, and popliteal vein are normal in appearance without visible thrombus. These vessels demonstrate normal compression, flow an d augmentation. The posterior tibial vein and greater saphenous vein are also patent. IMPRESSION: No evidence of left lower extremity DVT. POS: [facility]
--- NOTE | 2018-03-19 23:29 | CON ---
DATE OF CONSULTATION: 03/19/2018 REFERRING PHYSICIAN: Han Clinton M.D. REASON FOR CONSULTATION: Second degree AV block. HISTORY OF PRESENT ILLNESS: Mr. De La Cruz is an elderly 87-year-old gentleman who presented to the emergency room today with reports of fever, chills, and bloody vomit earlier in the day. Of note, he had recently been treated for Streptococcal bacteremia secondary to right lower extremity cellulitis in 2016. While in the emergency room, he was found to have extremely low heart rate with a high degree AV block. He intermittently has second degree Mobitz type 2. He is currently undergoing further evaluation for his likely recurrent bacteremia as well as having GI consulted regarding his hematemesis. His family at bedside including his and his daughter. He is mentally sound and access his own medical decision maker. He denies any substantial cardiac history and has seen Dr. David in the past. Review of hospital records show that he had a Cardiolite stress test performed in 2005 that did not suggest ischemia. No further evaluation was performed. He is followup with Dr. David, has been somewhat sporadic. He lives in [place]. He denies any heart racing, palpitations, chest pain or pressure, syncope or near syncopal episodes. He denies any stroke or stroke-like symptoms. He is not on powerful blood thinners, but does take aspirin. He has taken metoprolol in the past, but otherwise is not on any AV kathy blocking agents. REVIEW OF SYSTEMS: Positive for nausea, vomiting, malaise, chills, fever, swelling of the extremities, abdominal pain. Otherwise, a 10-point review of systems was conducted and is unremarkable and positive for chronic pain. PAST MEDICAL HISTORY: 1. Group B Streptococcal bacteremia secondary to cellulitis in 08/2017. 2. Postherpetic neuralgia x7 years following left-sided shingles. 3. Chronic anemia. 4. Hypertension. 5. Type 2 diabetes. 6. Chronic obstructive pulmonary disease. 7. History of DVT. PAST SURGICAL HISTORY: Appendectomy and finger repair. ALLERGIES: CIPROFLOXACIN, LORATADINE, SPIRIVA, VENLAFAXINE, and LATEX. HOME MEDICATIONS: Home medication list has been requested. Does endorse taking fosinopril, finasteride, aspirin, and simvastatin as well as amlodipine. Metoprolol as listed on the home medication list, but they adamantly deny taking his medications at home. SOCIAL HISTORY: Lives with his family and . He is a FULL CODE. He makes his own decisions. Negative for tobacco, alcohol, or illicit drugs. FAMILY HISTORY: Negative for early onset coronary artery disease or sudden cardiac to the best of their knowledge. PHYSICAL EXAMINATION: VITAL SIGNS: Temperature 97.8, pulse 42, blood pressure 134/41, respirations 16 , oxygen saturation is greater than 90%. GENERAL: This is an elderly male who appears to feel unwell. He is normocephalic, atraumatic. He is alert and oriented. His speech is clear. His affect is somewhat reserved. His oral mucosa is dry with adequate dentition. No oral lesions are present. NECK: Supple without jugular venous distention. Thyroid is nonpalpable. There is no lymphadenopathy. LUNGS: Clear to auscultation bilaterally without wheezes, crackles or rhonchi. Respirations are even and unlabored with good bilateral excursion. CARDIOVASCULAR: His heart rate is regularly regular but slow. PMI is nondisplaced. ABDOMEN: Soft with hyperactive bowel sounds. He is somewhat distended with some tenderness on palpation. EXTREMITIES: Warm and dry to touch without clubbing or cyanosis. He does have 1+ edema to the right lower extremity with erythema, warmth extending to just below the knee. No redness, swelling or warmth to the left lower extremity. NEUROLOGIC: Grossly intact and nonfocal. DATABASE: WBC 16.7, hemoglobin 12.2, hematocrit 35.6, platelet count is 113. INR is 1.3. Chemistry: Sodium 135, potassium 4.7, creatinine 1.89. Lactic acid is 3.1. TSH 1.6. CRP 15.9, troponin 0.119. CT of the abdomen and pelvis was performed and negative for findings other than some gallstones. EKG, we reviewed and show second degree type 2 Mobitz AV block. IMPRESSION: 1. Second degree 2:1 atrioventricular block and ventricular rate in the 40s, currently asymptomatic and with stable blood pressure. 2. Left bundle branch block. 3. Recurrent sepsis secondary to right lower extremity cellulitis and possibly bacteremia, Lactic acidosis,Leukocytosis. 4. Acute kidney injury. 6. Thrombocytopenia. PLAN: Long discussion was had with the family regarding the possible causes that was advanced AV block and conduction disease, possibly related to his sepsis as vagotonia with his vomiting. On the other hand, it could truly be advanced conduction disease. At this point, we discussed treatment options including medical management versus temporary pacemaker. Family does not wish to be too aggressive and were considering the options. They opted for temporary pacemaker implant. This will be performed shortly in a metallurgy laboratory technician. Risks include pain, swelling, bruising, infection, and damage to the vasculature as well as the heart. If his bradycardia and advanced AV block is related to his sepsis or vagotonia suspect that this will resolve as his infection resolves and he stabilizes medically. Alternatively, if it truly is underlying conduction disease, then he will likely require permanent pacemaker implant prior to discharge which will be evaluated throughout his hospital stay. At this point given his sepsis, it is not appropriate for permanent pacemaker implant at this time. We will continue to follow. Thank you for allowing us to participate in the care of this patient. ANTOINE
[2018-03-20] MEDS: Insulin Regular 300 UNITS/3 ML VIAL SC PRN ×2 (00:54→16:45)
--- NOTE | 2018-03-20 01:56 | OP ---
DATE OF OPERATION: 03/19/2018 PROCEDURE: Temporary pacemaker implantation REFERRING PHYSICIAN: Dr. Clinton. REASON FOR PROCEDURE: Mr. De La Cruz presented with near syncopal spell, nausea, vomiting, hematemesis , who also has a relaxed right lower extremity cellulitis signs. His EKG reveals 2:1 AV blocks, Mobi tz type 2 second degree AV block as well as underlying left bundle branch block pattern. Hence the h igh suspicion of intravascular infection, permanent pacemaker is not adequate option at this time. T emporary pacemaker was placed for possible longer duration of temporary pacing is needed. PROCEDURE IN DETAIL: The patient received no sedation, but the right IJ area was prepped, draped and anesthetized using subcutaneous lidocaine. With ultrasound guidance, the right internal jugular vei n was accessed using a multipurpose needle and a 7-Slovak short sheath was placed into right internal jugular vein. Previously, a 52 cm Medtronic active fixation lead was advanced to the right ventricu lar distal septum and the active fixation mechanism was deployed. Following that, this lead was sutu red to the skin and the lead was attached Medtronic pacemaker generator. The pacemaker generator was sutured to the skin and covered with Tegaderm tapes. Fluoroscopy was throughout the procedure and n o change in cardiac status noted. CONCLUSION: Successful temporary pacemaker placement. PLAN: Continue temporary pacing until resolution of bradycardia versus possibility of permanent pace maker implantation becomes possible.
[2018-03-20] MEDS: Piperacillin/Tazobactam 3.375 GM in Sodium Chloride 0.9% 100 ML IVPB SCH ×4 (02:46→20:00)
[2018-03-20] MEDS: Vancomycin HCl 500 MG in Sodium Chloride 0.9% 100 ML IVPB SCH ×2 (03:03→15:25)
[2018-03-20] MEDS: Sodium Chloride 0.9% 1,000 ML IV SCH ×3 (03:04→23:00)
[2018-03-20] MEDS: CEFAZOLIN/Water 2 GM/20 ML SYRINGE SLOW IVP SCH ×2 (05:08→16:25)
[2018-03-20 05:30] LABS: ALT (SGPT) 16 U/L (8-55); AST (SGOT) 26 U/L (5-34); Albumin 3.1 g/dL (3.4-4.8); Alkaline Phosphatase 47 U/L (40-150); Anion Gap 11 mmol/L (10-20); BUN (Urea Nitrogen) 55 mg/dL (8.4-25.7); Bilirubin, Total 0.7 mg/dL (0.2-1.2); Calc. Creatinine Clearance 51 mL/min (70-130); Calcium 8.5 mg/dL (7.8-10.44); Carbon Dioxide 29 mmol/L (23-31); Chloride 100 mmol/L (98-107); Estimated GFR-MDRD 45; Globulin 2.6 g/dL (2.4-3.5); Glucose 147 mg/dL (83-110); Magnesium 1.7 mg/dL (1.6-2.6); Phosphorus 3.7 mg/dL (2.3-4.7); Potassium 3.9 mmol/L (3.5-5.1); Protein, Total 5.7 g/dL (5.8-8.1); Sodium 136 mmol/L (136-145)
[2018-03-20 05:37] LABS: #Lymphocytes 1.8 thou/uL (1.20-3.40); #Neutrophils 10.6 thou/uL (1.40-6.50); %Eosinophils 0.1 % (0.0-10.0); %Lymphocytes 13.2 % (21.0-51.0); %Monocytes 7.7 % (0.0-10.0); Hemoglobin 11.3 g/dL (14.0-18.0); Mean Corpuscular HGB CONC 34.4 g/dL (32.0-36.0); Mean Corpuscular Hemoglobin 32.7 pg (27.0-31.0); Mean Platelet Volume 8.7 fL (7.4-10.4); Platelet Count 105 thou/uL (130-400); Red Blood Cell (RBC) Count 3.45 mill/uL (4.70-6.10); White Blood Cell (WBC) Count 13.4 thou/uL (4.8-10.8)
[2018-03-20] MEDS: traMADol HCl 50 MG TAB PO SCH ×4 (09:35→20:00)
[2018-03-20] MEDS: Docusate 100 MG CAP PO SCH ×2 (09:35→21:37)
[2018-03-20] MEDS: Pantoprazole 40 MG VIAL IVP SCH (09:36)
[2018-03-20] MEDS: Gabapentin 300 MG CAP PO SCH ×3 (09:38→20:00)
--- NOTE | 2018-03-20 10:00 | ULT ---
GALLBLADDER ULTRASOUND: CLINICAL HISTORY: Sepsis, cholelithiasis, abdominal pain with nausea and vomiting. FINDINGS: There is no focal hepatic lesion. Cholelithiasis is evident along with gallbladder sludge. There is borderline-sized gallbladder wall which approximates 3 mm. The common duct is normal in size for pa tient's age up to approximately 6 mm. No ascites. There is a focus of increased echogenicity incide ntally noted within the right kidney. Imaged portions of the right kidney do not reveal hydronephros is. IMPRESSION: Cholelithiasis and gallbladder sludge. The gallbladder wall is equivocal in thickness. There is no pericholecystic edema. A positive Hinojosa's sign is not reported by the rush seater. Recommend clini wesley correlation in this regard. POS: [facility]
[2018-03-20] MEDS: Albuterol Sulfate 2.5 mg/3 ml Neb NEB PRN (11:23)
--- NOTE | 2018-03-20 15:12 | PRG ---
DATE OF SERVICE: 03/20/2018 SUBJECTIVE: Mr. De La Cruz is tolerating his liquids well. He has had no further vomiting since yeste rday evening. He feels much better after receiving antibiotics. He did have an ultrasound today ty t showed stones in the gallbladder without signs of acute cholecystitis. PHYSICAL EXAMINATION: VITAL SIGNS: Blood pressure 109/88, pulse 94, temperature 98.1. GENERAL: He is in no acute distress, alert and oriented x3. LUNGS: Clear to auscultation bilaterally. HEART: Regular rate and rhythm. ABDOMEN: Soft, nontender, and nondistended. Bowel sounds are present. EXTREMITIES: No lower extremity edema. IMPRESSION: 1. Acute nausea and vomiting related to the cellulitis and sepsis, rapidly responded to treatment to the cellulitis. He had a similar presentation where he was admitted previously. He is asking for s olid food now. 2. Cholelithiasis. He did not have signs of acute cholecystitis by ultrasound and he has no abdomin al pain or tenderness. It does not appear that the cholelithiasis is the primary source for his naus ea and vomiting. 3. Coffee ground emesis. He did have some coffee ground appearing emesis yesterday. His hemoglobin is okay at 11.3. He likely had some gastritis related to the above. RECOMMENDATIONS: 1. He will be treated with proton pump inhibitor orally daily. 2. Okay to advance to a heart healthy diet. 3. I will sign off. Please call if GI can be of assistance.
[2018-03-20] MEDS ORDERED: CEFAZOLIN/Water 2 GM/20 ML SYRINGE SLOW IVP SCH (15:30)
[2018-03-20] MEDS: Arformoterol 15 MCG/2 ML NEB NEB SCH (18:26)
[2018-03-20] MEDS ORDERED: Mometasone/Formoterol 120 PUFF INHALER INH SCH (18:30)
[2018-03-20] MEDS: Finasteride 5 MG TAB PO SCH (20:00)
[2018-03-20] MEDS: Enoxaparin Sodium 40 MG/0.4 ML SYRINGE SC SCH (20:00)
--- NOTE | 2018-03-20 21:02 | PDOC.PN ---
- Subjective Encounter Start Date: 03/20/18 Encounter Start Time: 13:00 Patient seen and examined for Sepsis. N/V improved. No CP/SOB. s/p temporary pacemaker. No new complaints. Events noted - Objective Resuscitation Status: Resuscitation Status DNI:No Intubation MAR Reviewed: Yes Vital Signs & Weight: Vital Signs (12 hours) Temp Pulse Pulse Pulse Resp BP BP 03/20/18 18:26 76 15 03/20/18 15:00 98.3 F 03/20/18 12:00 98.1 F 03/20/18 11:23 70 23 H 03/20/18 10:50 76 71 139/50 L 122/45 L Pulse Ox 03/20/18 18:26 96 03/20/18 15:00 03/20/18 12:00 03/20/18 11:23 03/20/18 10:50 Weight Admit Weight 230 lb 9.656 oz Weight 230 lb 9.656 oz Most Recent Monitor Data Heart Rate from ECG 85 NIBP 112/52 NIBP BP-Mean 74 Respiration from ECG 23 SpO2 96 I&O: 03/19/18 03/20/18 03/21/18 06:59 06:59 06:59 Intake Total 1227 2059 Output Total 970 705 Balance 257 1354 Result Diagrams: 03/20/18 04:52 03/20/18 04:52 Additional Labs: Accuchecks 03/20/18 03/20/18 03/20/18 19:50 16:44 12:58 POC Glucose 182 H 167 H 120 H 03/20/18 03/19/18 00:12 21:09 POC Glucose 209 H 226 H Microbiology 03/19/18 15:16 Gastric - Pending Gastric Occult Blood - Final 03/19/18 12:25 Stool - Pending Stool Occult Blood (ENDER) - Final 03/19/18 16:41 Urine clean catch Urine Culture - Preliminary NO GROWTH AT 12 HOURS 03/19/18 15:20 Venous blood - Left Hand Blood Culture - Preliminary Specimen has been received and culture in progress. No Growth to date. 03/19/18 15:08 Venous blood - Right Hand Blood Culture - Preliminary Specimen has been received and culture in progress. No Growth to date. Radiology Reviewed by me: Yes (RUQ USG - Cholelithiases, CXR - No infiltrate) EKG Reviewed by me: Yes (Tele paced) Phys Exam - Physical Examination Constitutional: NAD Respiratory: no wheezing, no rales, no rhonchi Symmetrical Cardiovascular: RRR, no rub no heaves/pulsations Gastrointestinal: soft, non-tender, no distention, positive bowel sounds No guarding/rigidity Musculoskeletal: pulses present, edema present (RLE) Neurological: non-focal, normal sensation, moves all 4 limbs Psychiatric: normal affect, A&O x 3 Dx/Plan - Plan DVT proph w/SCDs IMPRESSION: 1. Sepsis with acute organ dysfunction secondary to right lower extremity cellulitis. - on Vancomycin and Zosyn 2. High-degree AV block s/p temporary pacemaker 3. N/V/Upper gastrointestinal bleeding - resolved 4. Acute kidney injury. improving 5. Lactic acidosis secondary to sepsis. 6. Elevated troponins, probably secondary to sepsis and demand ischemia. 7. Elevated inflammatory markers, CRP was 15.9. 8. Thrombocytopenia, probably secondary to sepsis. 9. Diabetes mellitus type 2. on sliding scale 10. Hypertension. 11. Cholelithiasis. 12. Chronic obstructive pulmonary disease. on PRN nebs 13. Postherpetic neuralgia on tramadol and gabapentin. 14. Benign prostatic hypertrophy. PLAN: * Advance diet * Cont current Atbx * Cont IV fluids * Cont Amlodipine * AM labs * Cont current meds as below Review of Systems - Review of Systems Respiratory: negative: Cough, Dry, Shortness of Breath, Hemoptysis, SOB with Excertion, Pleuritic Pain, Sputum, Wheezing Cardiovascular: negative: chest pain, palpitations, orthopnea, paroxysmal nocturnal dyspnea, edema, light headedness, other - Medications/Allergies Allergies/Adverse Reactions: Allergies Allergy/AdvReac Type Severity Reaction Status Date / Time ciprofloxacin [From Cipro] Allergy Verified 03/19/18 20:30 ciprofloxacin HCl Allergy Verified 03/19/18 20:30 [From Cipro] felodipine Allergy Verified 03/19/18 20:30 loratadine Allergy Verified 03/19/18 20:30 tiotropium bromide Allergy Verified 03/19/18 20:30 [From Spiriva with HandiHaler] venlafaxine HCl Allergy Verified 03/19/18 20:30 [From Effexor] Medications: Current Medications Acetaminophen (Tylenol) 650 mg PO Q4H PRN PRN Reason: Headache/Fever or Pain Acetaminophen (Tylenol) 650 mg ND Q4H PRN PRN Reason: Headache/Fever or Pain Al Hydroxide/Mg Hydroxide (Maalox) 30 ml PO Q6H PRN PRN Reason: Heartburn or Indigestion Albuterol Sulfate (Ventolin) 2.5 mg NEB [id number] PRN PRN Reason: SOB &/or Wheezing Last Admin: 03/20/18 11:23 Dose: 2.5 mg Amlodipine Besylate (Norvasc) 2.5 mg PO DAILY [facility] Arformoterol Tartrate (Brovana) 15 mcg NEB BID-RT [facility] Last Admin: 03/20/18 18:26 Dose: 15 mcg Calcium Carbonate (Tums) 1,000 mg PO Q4H PRN PRN Reason: Heartburn or Indigestion Dextrose/Water (Dextrose 50%) 25 gm SLOW IVP PRN PRN PRN Reason: Hypoglycemia Docusate Sodium (Colace) 100 mg PO BID [facility] Last Admin: 03/20/18 09:35 Dose: Not Given Enoxaparin Sodium (Lovenox) 40 mg SC 2100 [facility] Finasteride (Proscar) 5 mg PO QPM [facility] Gabapentin (Neurontin) 900 mg PO TID [facility] Last Admin: 03/20/18 14:16 Dose: 900 mg Glucagon (Glucagon) 1 mg IM PRN PRN PRN Reason: Hypoglycemia Piperacillin Sod/Tazobactam (Sod 3.375 gm/ Sodium Chloride) 100 mls @ 200 mls/ hr IVPB 0300,0900,1500,2100 [facility] Last Admin: 03/20/18 14:21 Dose: 100 mls Dextrose/Water (D5w) 1,000 mls @ 0 mls/hr IV .Q0M PRN; As Directed PRN Reason: Hypoglycemia Sodium Chloride (Normal Saline 0.9%) 1,000 mls @ 125 mls/hr IV .Q8H [facility] Last Admin: 03/20/18 14:17 Dose: 1,000 mls Vancomycin HCl 500 mg/ Sodium (Chloride) 100 mls @ 100 mls/hr IVPB 0300,1500 [facility] Last Admin: 03/20/18 15:25 Dose: 100 mls Insulin Human Regular (Humulin R) 0 units SC .MILD SLIDING SCALE PRN PRN Reason: Mild Correctional Scale Last Admin: 03/20/18 16:45 Dose: 2 unit Insulin Human Regular (Humulin R) 0 units SC .BEDTIME SLIDING SC PRN PRN Reason: Bedtime Correctional Scale Last Admin: 03/20/18 00:54 Dose: 2 unit Miscellaneous Medication (Pharmacy To Dose) 1 each IVPB ONE PRN PRN Reason: Pharmacy to dose Stop: 04/18/18 16:28 Nitroglycerin (Nitrostat) 0.4 mg PO Q5MIN PRN PRN Reason: Chest Pain Ondansetron HCl (Zofran Odt) 4 mg PO Q6H PRN PRN Reason: Nausea/Vomiting Ondansetron HCl (Zofran) 4 mg IVP Q6H PRN PRN Reason: Nausea/Vomiting Pantoprazole Sodium (Protonix) 40 mg PO DAILY [facility] Senna (Senokot) 2 tab PO HSPRN PRN PRN Reason: Constipation Tramadol HCl (Ultram) 50 mg PO QID [facility] Last Admin: 03/20/18 17:39 Dose: 50 mg
--- NOTE | 2018-03-21 00:28 | CON ---
DATE OF CONSULTATION: 03/20/2018 HISTORY OF PRESENT ILLNESS: Mr. De La Cruz is an 87-year-old male who was admitted with a complaint of erythema of his lower extremities and vomiting. His vomit was dark, presented to the emergency room with these complaints and he was noted to be bradycardic. He subsequently had a temporary pacemaker placed. He has a history of asthma. This started after pneumonia many years ago, but denies recently having any asthma flares. He says he is feeling well at this time. PAST MEDICAL HISTORY: Remarkable for diabetes, history of cardiomyopathy, history of hypertension, h istory of asthma, history of appendectomy. ALLERGIES: He reports allergies to CIPRO, FELODIPINE, LORATADINE, TIOTROPIUM and VENLAFAXINE. FAMILY HISTORY: Negative for lung disease in the early age. PHYSICAL EXAMINATION: GENERAL: He is a very pleasant gentleman. VITAL SIGNS: He is in a paced rhythm with heart rate is 70, blood pressure is 118/40, respiratory ra te was in the high teens to low 20s, oximetry is 96. HEENT: Pupils are equal. Sclerae anicteric. NECK: Supple. LUNGS: Clear. HEART: Regular rhythm. S1 and S2 are normal. ABDOMEN: Soft and nontender. EXTREMITIES: Without clubbing or cyanosis. IMPRESSION: 1. Bradycardia requiring temporary pacing. 2. Heme-negative stool with dark emesis. He has not vomited any more. This is being followed by GI . 3. Cellulitis. PLAN: Continue supportive care. Suspect he will end up needing a pacemaker. He is on antimicrobial therapy at this time. physicians caring for him. This is a 50-minute consult greater than 50% of the time spent in t he coordinating care.
[2018-03-21 02:02] LABS: #Eosinphils 0.2 thou/uL (0.0-0.7); #Lymphocytes 1.8 thou/uL (1.20-3.40); #Monocytes 0.9 thou/uL (0.11-0.59); #Neutrophils 7.2 thou/uL (1.40-6.50); %Eosinophils 1.7 % (0.0-10.0); %Monocytes 9.2 % (0.0-10.0); %Neutrophils 71.1 % (42.0-75.0); Hemoglobin 10.5 g/dL (14.0-18.0); Mean Corpuscular HGB CONC 34.5 g/dL (32.0-36.0); Mean Corpuscular Hemoglobin 32.9 pg (27.0-31.0); Mean Corpuscular Volume 95.4 fL (78.0-98.0); Mean Platelet Volume 8.3 fL (7.4-10.4); Platelet Count 84 thou/uL (130-400); RBC Distribution Width 11.9 % (11.5-14.5); Red Blood Cell (RBC) Count 3.19 mill/uL (4.70-6.10); White Blood Cell (WBC) Count 10.1 thou/uL (4.8-10.8)
[2018-03-21] MEDS: Piperacillin/Tazobactam 3.375 GM in Sodium Chloride 0.9% 100 ML IVPB SCH ×3 (02:21→15:00)
[2018-03-21 02:41] LABS: ALT (SGPT) 10 U/L (8-55); AST (SGOT) 20 U/L (5-34); Albumin 2.9 g/dL (3.4-4.8); Alkaline Phosphatase 46 U/L (40-150); Anion Gap 11 mmol/L (10-20); BUN (Urea Nitrogen) 36 mg/dL (8.4-25.7); Bilirubin, Total 0.6 mg/dL (0.2-1.2); Calc. Creatinine Clearance 76 mL/min (70-130); Calcium 8.3 mg/dL (7.8-10.44); Carbon Dioxide 28 mmol/L (23-31); Chloride 104 mmol/L (98-107); Estimated GFR-MDRD 71; Globulin 2.5 g/dL (2.4-3.5); Glucose 127 mg/dL (83-110); Magnesium 1.8 mg/dL (1.6-2.6); Potassium 3.6 mmol/L (3.5-5.1); Protein, Total 5.4 g/dL (5.8-8.1); Sodium 139 mmol/L (136-145)
[2018-03-21] MEDS ORDERED: Vancomycin HCl 1.5 GM in Sodium Chloride 0.9% 250 ML 300 ML IVPB SCH (03:00)
[2018-03-21] MEDS: Sodium Chloride 0.9% 1,000 ML IV SCH ×4 (05:12→21:27)
[2018-03-21] MEDS: Gabapentin 300 MG CAP PO SCH ×3 (08:28→21:14)
[2018-03-21] MEDS: Amlodipine 5 MG TAB PO SCH (08:29)
[2018-03-21] MEDS: traMADol HCl 50 MG TAB PO SCH ×4 (08:30→21:12)
[2018-03-21] MEDS: Docusate 100 MG CAP PO SCH ×2 (08:31→21:15)
[2018-03-21] MEDS ORDERED: Amlodipine 5 MG TAB PO SCH (09:00)
[2018-03-21] MEDS: Arformoterol 15 MCG/2 ML NEB NEB SCH ×2 (09:29→18:41)
[2018-03-21] MEDS: Insulin Regular 300 UNITS/3 ML VIAL SC PRN (12:00)
--- NOTE | 2018-03-21 13:41 | CON ---
DATE OF CONSULTATION: 03/21/2018 REASON FOR CONSULTATION: Fever, chills, cellulitis. HISTORY OF PRESENT ILLNESS: An 87-year-old with history of type 2 diabetes, COPD, and prior cellulitis secondary to group B strep with bacteremia who was admitted with new onset of fever and chills of sudden onset and vomiting with bloody emesis. Initial findings included temperature of 98.7, pulse 42, blood pressure 134/41. Lungs with diminished air entry at bases. Heart exam shows bradycardia with 2/6 systolic murmur over the mitral area. Some tenderness in the abdominal region and evidence of erythema in the right lower extremity extending from the foot all the way to the right knee associated with tenderness. Initial impression was sepsis, cellulitis and high grade AV block. The patient had a temporary pacemaker placed and started on broad spectrum antimicrobial coverage. Currently, he is awake. Denies any headaches, visual symptoms, little bit of tenderness at the pacer site. No dyspnea or chest pain, no abdominal pain at the moment, moderate tenderness in the right lower extremity. No genital symptoms, no diarrhea. PAST MEDICAL HISTORY: Type 2 diabetes, hypertension, COPD, prior DVT, group B strep bacteremia associated with cellulitis in 2017, herpes zoster with chronic postherpetic neuralgia in chest area at left side for the past 7 years, managed with gabapentin. SURGICAL HISTORY: Includes appendectomy and finger accident with repair. ALLERGIES: CIPRO, LORATADINE, SPIRIVA, VENLAFAXINE, LATEX. CURRENT MEDICATIONS: Tylenol, Maalox, Ventolin, Norvasc, Brovana, Tums, Lovenox , Proscar, Neurontin, insulin, ondansetron, Zosyn, and vancomycin. SOCIAL HISTORY: The patient never a smoker. No alcoholic beverage use. [place]. PHYSICAL EXAMINATION: VITAL SIGNS: Temperature max 99.7, now 98.7, blood pressure 140/40, pulse 80, respirations 16. SKIN: Shows area of circumferential erythema in right lower extremity with tenderness. No areas of blistering. No areas of necrosis noted. The patient has a temporary pacemaker inserted in the right subclavian position and the peripheral IV access. GENITOURINARY: Patient has a Boyd catheter in place. I's and O's are positive for the past 3 days. GENERAL: Awake, alert, in no distress. HEENT: Ocular movements. Oral cavity moist. NECK: Supple. No lymphadenopathy. LUNGS: Symmetric clear breath sounds. HEART: S1, S2, regular rate with a soft aortic murmur. ABDOMEN: Soft, not distended or tender. No ascites, no bladder distention, no organomegaly. EXTREMITIES: No joint inflammatory activity noted. Pulses 1+ dorsalis pedis. Plantar responses are flexor. Able to move extremities with little limitation. NEUROLOGIC: Cognitive function appears to be intact. LABORATORY DATA AND IMAGING: White cell count is down from 16-10, hemoglobin 10 , platelets 84,000. Chemistry with creatinine of 0.99. Liver profile normal. Albumin 2.9. Urinalysis unremarkable. Microbiology thus far, two sets of blood culture, no growth. Urine culture, no growth as well. I have an echocardiogram report from 03/20/2018 and it showed a technically difficult exam , LV size normal, mild tricuspid regurgitation. There is an abdomen ultrasound from 03/20/2018 that showed evidence of cholelithiasis. No other findings of significance. Chest x-ray from admission with no acute cardiopulmonary abnormality noted. Abdomen and pelvis CT scan from admission is unremarkable and a duplex ultrasound showed no evidence of DVT. ASSESSMENT: Chronic obstructive pulmonary disease, type 2 diabetes, prior episodes of cellulitis with group B strep bacteremia, now admitted with recurrence of cellulitis, right lower extremity associated with sepsis syndrome and bradycardia with AV block status post temporary pacer. DISCUSSION: The differential diagnosis includes cellulitis with bacteremia and then the cardiac changes noted. Endocarditis will have to be considered depending on results of blood cultures. Particularly in the face of an A-V block, I believe that this possibility is less likely. We will transition to Rocephin. Discontinue Zosyn and vancomycin since beta hemolytic Streptococci are the most likely organisms in this kind of scenario. If blood cultures are negative, then we will treat for the usual duration for cellulitis. The decision as to the placement of permanent pacemaker will have to be made by the manager agriculture and once we will have the results of blood cultures and we have consolidation of the treatment of the inflammatory process, then we should be able to proceed without any concerns. On the other hand, if blood cultures return positive, we will have to verify resolution of bacteremia prior to insertion of the device. Hopefully, he is not going to require a device. ANTOINE
[2018-03-21] MEDS ORDERED: cefTRIAXone\\ROCEPHIN 2 GM in Sodium Chloride 0.9% 100 ML IVPB SCH (21:00)
[2018-03-21] MEDS: Finasteride 5 MG TAB PO SCH (21:14)
[2018-03-21] MEDS: Enoxaparin Sodium 40 MG/0.4 ML SYRINGE SC SCH (21:15)
[2018-03-21] MEDS: Artificial Tears 18 DROP/0.9 ML EA EYE PRN (21:16)
--- NOTE | 2018-03-21 22:25 | PDOC.PN ---
- Subjective Encounter Start Date: 03/21/18 Encounter Start Time: 16:30 Patient seen and examined for Sepsis/AV block. No new complaints. No CP/SOB/ fever. Some nausea without vomiting. No overnight events - Objective Resuscitation Status: Resuscitation Status DNI:No Intubation MAR Reviewed: Yes Vital Signs & Weight: Vital Signs (12 hours) Temp Pulse Pulse Pulse Resp BP BP 03/21/18 19:57 98.2 F 72 22 H 03/21/18 18:43 03/21/18 18:41 03/21/18 17:05 98.8 F 70 14 03/21/18 15:00 98.5 F 03/21/18 11:23 77 75 155/50 H 144/49 H 03/21/18 11:00 98.5 F BP Pulse Ox Pulse Ox Pulse Ox 03/21/18 19:57 102/51 L 92 L 03/21/18 18:43 98 03/21/18 18:41 95 03/21/18 17:05 114/53 L 98 03/21/18 15:00 03/21/18 11:23 96 96 03/21/18 11:00 Weight Admit Weight 230 lb 9.656 oz Weight 233 lb 3.985 oz Most Recent Monitor Data Heart Rate from ECG 70 NIBP 107/41 NIBP BP-Mean 80 Respiration from ECG 22 SpO2 97 I&O: 03/20/18 03/21/18 03/22/18 06:59 06:59 06:59 Intake Total 1227 4164 2234 Output Total 970 1540 760 Balance 257 2624 1474 Result Diagrams: 03/22/18 03:44 03/22/18 03:44 Additional Labs: Accuchecks 03/21/18 03/21/18 03/21/18 16:30 11:16 04:11 POC Glucose 139 H 235 H 129 H EKG Reviewed by me: Yes (Tele paced) Phys Exam - Physical Examination Constitutional: NAD Respiratory: no wheezing, no rhonchi Cardiovascular: RRR, no rub Gastrointestinal: soft, non-tender, no distention, positive bowel sounds Musculoskeletal: edema present (Rt LE) Neurological: non-focal, moves all 4 limbs Psychiatric: normal affect, A&O x 3 Dx/Plan - Plan DVT proph w/lovenox, DVT proph w/SCDs IMPRESSION: 1. Sepsis with acute organ dysfunction secondary to right lower extremity cellulitis. 2. High-degree AV block s/p temporary pacemaker 3. N/V/Upper gastrointestinal bleeding - resolved 4. Acute kidney injury. improving 5. Lactic acidosis secondary to sepsis. 6. Elevated troponins, probably secondary to sepsis and demand ischemia. 7. Elevated inflammatory markers, CRP was 15.9. 8. Thrombocytopenia, probably secondary to sepsis. 9. Diabetes mellitus type 2. on sliding scale 10. Hypertension. 11. Cholelithiasis without Acute Cholecystitis 12. Chronic obstructive pulmonary disease. on PRN nebs 13. Postherpetic neuralgia on tramadol and gabapentin. 14. Benign prostatic hypertrophy. PLAN: * Change Vancomycin and Zosyn to Ceftriaxone per ID * Change IV fluids to 75 ml/hr * Renal function improving * AM labs * Cont current meds as below * Transfer to [facility] Review of Systems - Review of Systems Respiratory: negative: Cough, Dry, Shortness of Breath, Hemoptysis, SOB with Excertion, Pleuritic Pain, Sputum, Wheezing Cardiovascular: negative: chest pain, palpitations, orthopnea, paroxysmal nocturnal dyspnea, edema, light headedness, other Gastrointestinal: Nausea. negative: Vomiting, Abdominal Pain, Diarrhea, Constipation, Melena, Hematochezia, Other - Medications/Allergies Allergies/Adverse Reactions: Allergies Allergy/AdvReac Type Severity Reaction Status Date / Time ciprofloxacin [From Cipro] Allergy Verified 03/19/18 20:30 ciprofloxacin HCl Allergy Verified 03/19/18 20:30 [From Cipro] felodipine Allergy Verified 03/19/18 20:30 loratadine Allergy Verified 03/19/18 20:30 tiotropium bromide Allergy Verified 03/19/18 20:30 [From Spiriva with HandiHaler] venlafaxine HCl Allergy Verified 03/19/18 20:30 [From Effexor] Medications: Current Medications Acetaminophen (Tylenol) 650 mg PO Q4H PRN PRN Reason: Headache/Fever or Pain Acetaminophen (Tylenol) 650 mg [place] Q4H PRN PRN Reason: Headache/Fever or Pain Al Hydroxide/Mg Hydroxide (Maalox) 30 ml PO Q6H PRN PRN Reason: Heartburn or Indigestion Albuterol Sulfate (Ventolin) 2.5 mg NEB [id number] PRN PRN Reason: SOB &/or Wheezing Last Admin: 03/20/18 11:23 Dose: 2.5 mg Amlodipine Besylate (Norvasc) 2.5 mg PO DAILY [facility] Last Admin: 03/21/18 08:29 Dose: 2.5 mg Arformoterol Tartrate (Brovana) 15 mcg NEB BID-RT [facility] Last Admin: 03/21/18 18:41 Dose: 15 mcg Artificial Tears (Tears Naturale) 0 drop EA EYE PRN PRN PRN Reason: Dry Eyes Last Admin: 03/21/18 21:16 Dose: 1 drop Calcium Carbonate (Tums) 1,000 mg PO Q4H PRN PRN Reason: Heartburn or Indigestion Dextrose/Water (Dextrose 50%) 25 gm SLOW IVP PRN PRN PRN Reason: Hypoglycemia Docusate Sodium (Colace) 100 mg PO BID [facility] Last Admin: 03/21/18 21:15 Dose: Not Given Enoxaparin Sodium (Lovenox) 40 mg SC 2100 [facility] Last Admin: 03/21/18 21:15 Dose: Not Given Finasteride (Proscar) 5 mg PO QPM [facility] Last Admin: 03/21/18 21:14 Dose: 5 mg Gabapentin (Neurontin) 900 mg PO TID [facility] Last Admin: 03/21/18 21:14 Dose: 900 mg Glucagon (Glucagon) 1 mg IM PRN PRN PRN Reason: Hypoglycemia Dextrose/Water (D5w) 1,000 mls @ 0 mls/hr IV .Q0M PRN; As Directed PRN Reason: Hypoglycemia Sodium Chloride (Normal Saline 0.9%) 1,000 mls @ 75 mls/hr IV .[id number] [facility] Last Admin: 03/21/18 21:27 Dose: 1,000 mls Ceftriaxone Sodium 2 gm/ (Sodium Chloride) 100 mls @ 200 mls/hr IVPB Q24HR [facility] Last Admin: 03/21/18 21:31 Dose: 100 mls Insulin Human Regular (Humulin R) 0 units SC .MILD SLIDING SCALE PRN PRN Reason: Mild Correctional Scale Last Admin: 03/21/18 12:00 Dose: 3 unit Insulin Human Regular (Humulin R) 0 units SC .BEDTIME SLIDING SC PRN PRN Reason: Bedtime Correctional Scale Last Admin: 03/20/18 00:54 Dose: 2 unit Miscellaneous Medication (Pharmacy To Dose) 1 each IVPB ONE PRN PRN Reason: Pharmacy to dose Stop: 04/18/18 16:28 Nitroglycerin (Nitrostat) 0.4 mg PO Q5MIN PRN PRN Reason: Chest Pain Ondansetron HCl (Zofran Odt) 4 mg PO Q6H PRN PRN Reason: Nausea/Vomiting Last Admin: 03/21/18 14:58 Dose: 4 mg Ondansetron HCl (Zofran) 4 mg IVP Q6H PRN PRN Reason: Nausea/Vomiting Pantoprazole Sodium (Protonix) 40 mg PO DAILY [facility] Last Admin: 03/21/18 08:29 Dose: 40 mg Senna (Senokot) 2 tab PO HSPRN PRN PRN Reason: Constipation Tramadol HCl (Ultram) 50 mg PO QID [facility] Last Admin: 03/21/18 21:12 Dose: 50 mg
--- NOTE | 2018-03-21 22:37 | PRG ---
DATE OF SERVICE: 03/21/2018 SUBJECTIVE: Mr. De La Cruz is afebrile. OBJECTIVE: VITAL SIGNS: Heart rate is in the 70s, paced, respiratory rate 14, oximetry is 98 on room air. Bloo d pressure 114/53. LUNGS: Clear. HEART: Regular rhythm. ABDOMEN: Soft and nontender. EXTREMITIES: Without asymmetry. NEUROLOGIC: Nonfocal. LABORATORY DATA: White count is 10.1, hemoglobin 10.5, platelets 84,000. Sodium 139, potassium 3.6, chloride 104, bicarbonate 28, BUN 36, creatinine 0.99. IMPRESSION: Status post temporary pacing paced at this time. He has been treated with antibiotics for possible cellulitis. His cultures are negative. Will continue following physicians caring for him. He is stable to move out of the Critical Care Unit.
[2018-03-22 04:18] LABS: ALT (SGPT) 10 U/L (8-55); AST (SGOT) 19 U/L (5-34); Albumin 2.9 g/dL (3.4-4.8); Alkaline Phosphatase 45 U/L (40-150); Anion Gap 11 mmol/L (10-20); BUN (Urea Nitrogen) 22 mg/dL (8.4-25.7); Bilirubin, Total 0.4 mg/dL (0.2-1.2); Calc. Creatinine Clearance 90 mL/min (70-130); Calcium 8.4 mg/dL (7.8-10.44); Carbon Dioxide 26 mmol/L (23-31); Chloride 106 mmol/L (98-107); Estimated GFR-MDRD 85; Globulin 2.7 g/dL (2.4-3.5); Glucose 127 mg/dL (83-110); Magnesium 1.8 mg/dL (1.6-2.6); Potassium 3.8 mmol/L (3.5-5.1); Protein, Total 5.6 g/dL (5.8-8.1); Sodium 139 mmol/L (136-145)
[2018-03-22 04:46] LABS: Band 14 % (5-11); Eosinophils 4 % (0-10); Hemoglobin 10.4 g/dL (14.0-18.0); Lymphocytes 19 % (21-51); MDiff Complete? YES; Mean Corpuscular HGB CONC 33.4 g/dL (32.0-36.0); Mean Corpuscular Hemoglobin 31.8 pg (27.0-31.0); Mean Corpuscular Volume 95.3 fL (78.0-98.0); Mean Platelet Volume 8.6 fL (7.4-10.4); Monocytes 12 % (0-10); Neutrophil 51 % (42-75); PLT Morphology Comment Appears Decreased; Platelet Count 90 thou/uL (130-400); RBC Distribution Width 11.8 % (11.5-14.5); RBC Morphology Normal; Red Blood Cell (RBC) Count 3.27 mill/uL (4.70-6.10); White Blood Cell (WBC) Count 7.5 thou/uL (4.8-10.8)
[2018-03-22] MEDS: Albuterol Sulfate 2.5 mg/3 ml Neb NEB PRN ×2 (06:31→18:56)
[2018-03-22] MEDS: Arformoterol 15 MCG/2 ML NEB NEB SCH ×2 (06:32→18:55)
--- NOTE | 2018-03-22 06:56 | PRG ---
DATE OF SERVICE: 03/22/2018 Mr. De La Cruz did well overnight. He has no complaints. He still has an erythematous right lower ext remity. He has an SCD on the right, so I have asked the nurse to remove that. PHYSICAL EXAMINATION: LUNGS: Lungs are clear. HEART: Regular rhythm. ABDOMEN: Abdomen is soft. Blood cultures from the 6th are negative. IMPRESSION: 1. Bradycardia with a temporary pacer in place. 2. Cellulitis of his lower extremity. 3. Nausea and vomiting. There is no evidence of gastrointestinal bleed. 4. Cholelithiasis with no clinical evidence of cholecystitis. PLAN: Continue supportive care. Await EPs decisions regarding whether or not he needs a pacemaker.
[2018-03-22] MEDS ORDERED: Sodium Chloride 0.9% 1,000 ML IV SCH (08:05)
[2018-03-22] MEDS: traMADol HCl 50 MG TAB PO SCH ×4 (09:46→20:59)
[2018-03-22] MEDS: Gabapentin 300 MG CAP PO SCH ×3 (09:46→21:01)
[2018-03-22] MEDS: Amlodipine 5 MG TAB PO SCH (09:47)
[2018-03-22] MEDS: Docusate 100 MG CAP PO SCH ×2 (09:47→21:00)
--- NOTE | 2018-03-22 16:50 | PDOC.CTH ---
Cardiology Progress Note - Subjective EP Progress Note. He is feeling better. No more N/V. Temp PPM site without reaction. - Objective Vital Signs Temp Pulse Resp BP BP Pulse Ox 03/22/18 16:00 97.3 F L 70 23 H 188/68 H 94 L 03/22/18 11:39 98.2 F 70 20 139/58 L 92 L 03/22/18 09:47 93 152/55 H 03/22/18 08:04 98.5 F 93 18 143/57 H 90 L 03/22/18 08:00 98.0 F 93 20 92 L 03/22/18 06:31 70 14 93 L Admit Weight 230 lb 9.656 oz Weight 234 lb 03/21/18 03/22/18 03/23/18 06:59 06:59 06:59 Intake Total 4164 4284 Output Total 1540 1410 Balance 2624 2874 - Physical Examination General/Neuro: alert & oriented x3, NAD, other: Neck: carotid US brisk, no JVD present, other: Lungs: CTA, unlabored respirations, other: Heart: PMI normal, RRR, other: Abdomen: no HSM, NT/ND, soft, other: - Telemetry Telemetry Rhythm: SR, intemittent pacing - Labs Result Diagrams: 03/23/18 03:23 03/23/18 03:23 Troponin/CKMB CK-MB (CK-2) 4.2 ng/mL (0-6.6) 03/19/18 15:08 Troponin I 0.095 ng/mL (< 0.028) H 03/19/18 20:45 - Assessment/Plan IMPRESSION: Transient severe bradycardia with 2:1 AV block and LBBB. - S/P temporary PPM 03/19/18. - Now improved. Pacemakewr programmed down to 50BPM. - LE cellulitis. H/o bacteremia in past. Neg BCX so far. - Hematemesis; Stable anemia Plan Continue to monitor for bradycardai. For now will leave temporar PPM in. Might need permanent PPM in the future, after resolution of infection. Attending Addendum - Attending Addendum Date/Time: 03/23/18 1603 I personally evaluated the patient and discussed the management with Ms Sher. I agree with the History, Examination, Assessment and Plan documented above with any addition or exceptions noted below.
[2018-03-22] MEDS: Finasteride 5 MG TAB PO SCH (20:59)
[2018-03-22] MEDS: cefTRIAXone\\ROCEPHIN 2 GM, Admixture Fee 1 EACH in Sodium Chloride 0.9% 100 ML IVPB SCH (21:00)
[2018-03-22] MEDS: Enoxaparin Sodium 40 MG/0.4 ML SYRINGE SC SCH (21:00)
--- NOTE | 2018-03-22 21:20 | PDOC.PN ---
- Subjective Encounter Start Date: 03/22/18 Encounter Start Time: 19:00 Patient seen and examined for Sepsis/Cellulitis. No new complaints. No overnight events - Objective Resuscitation Status: Resuscitation Status DNI:No Intubation MAR Reviewed: Yes Vital Signs & Weight: Vital Signs (12 hours) Temp Pulse Resp BP BP Pulse Ox 03/22/18 19:52 97.4 F L 71 22 H 154/50 H 99 03/22/18 18:56 68 16 93 L 03/22/18 18:55 68 16 93 L 03/22/18 16:00 97.3 F L 70 23 H 188/68 H 94 L 03/22/18 11:39 98.2 F 70 20 139/58 L 92 L 03/22/18 09:47 93 152/55 H Weight Admit Weight 230 lb 9.656 oz Weight 234 lb Most Recent Monitor Data Heart Rate from ECG 70 NIBP 107/41 NIBP BP-Mean 80 Respiration from ECG 22 SpO2 97 I&O: 03/21/18 03/22/18 03/23/18 06:59 06:59 06:59 Intake Total 4164 4284 Output Total 1540 1410 Balance 2624 2874 Result Diagrams: 03/23/18 03:23 03/23/18 03:23 Additional Labs: Accuchecks 03/22/18 03/22/18 03/22/18 20:21 16:31 10:37 POC Glucose 214 H 169 H 168 H 03/22/18 03/21/18 05:59 20:40 POC Glucose 128 H 165 H EKG Reviewed by me: Yes (Tele paced/SR) Phys Exam - Physical Examination Constitutional: NAD Respiratory: no wheezing, no rhonchi Cardiovascular: RRR, no rub Gastrointestinal: soft, non-tender, positive bowel sounds Musculoskeletal: edema present (Rt LE) Neurological: moves all 4 limbs Dx/Plan - Plan DVT proph w/SCDs IMPRESSION: 1. Sepsis with acute organ dysfunction secondary to right lower extremity cellulitis. 2. High-degree AV block s/p temporary pacemaker 3. N/V/Upper gastrointestinal bleeding - resolved 4. Acute kidney injury. improving 5. Lactic acidosis secondary to sepsis. 6. Elevated troponins, probably secondary to sepsis and demand ischemia. 7. Elevated inflammatory markers, CRP was 15.9. 8. Thrombocytopenia, probably secondary to sepsis. 9. Diabetes mellitus type 2. on sliding scale 10. Hypertension. 11. Cholelithiasis without Acute Cholecystitis 12. Chronic obstructive pulmonary disease. on PRN nebs 13. Postherpetic neuralgia on tramadol and gabapentin. 14. Benign prostatic hypertrophy. PLAN: * Cont Atbx for Cellulitis * Add Doxycycline * Cont current meds as below * Await cultures * Cont to monitor Review of Systems - Review of Systems Respiratory: negative: Cough, Dry, Shortness of Breath, Hemoptysis, SOB with Excertion, Pleuritic Pain, Sputum, Wheezing Cardiovascular: negative: chest pain, palpitations, orthopnea, paroxysmal nocturnal dyspnea, edema, light headedness, other - Medications/Allergies Allergies/Adverse Reactions: Allergies Allergy/AdvReac Type Severity Reaction Status Date / Time ciprofloxacin [From Cipro] Allergy Verified 03/19/18 20:30 ciprofloxacin HCl Allergy Verified 03/19/18 20:30 [From Cipro] felodipine Allergy Verified 03/19/18 20:30 loratadine Allergy Verified 03/19/18 20:30 tiotropium bromide Allergy Verified 03/19/18 20:30 [From Spiriva with HandiHaler] venlafaxine HCl Allergy Verified 03/19/18 20:30 [From Effexor] Medications: Current Medications Acetaminophen (Tylenol) 650 mg PO Q4H PRN PRN Reason: Headache/Fever or Pain Acetaminophen (Tylenol) 650 mg [place] Q4H PRN PRN Reason: Headache/Fever or Pain Al Hydroxide/Mg Hydroxide (Maalox) 30 ml PO Q6H PRN PRN Reason: Heartburn or Indigestion Albuterol Sulfate (Ventolin) 2.5 mg NEB [id number] PRN PRN Reason: SOB &/or Wheezing Last Admin: 03/22/18 18:56 Dose: 2.5 mg Amlodipine Besylate (Norvasc) 2.5 mg PO DAILY [facility] Last Admin: 03/22/18 09:47 Dose: 2.5 mg Arformoterol Tartrate (Brovana) 15 mcg NEB BID-RT [facility] Last Admin: 03/22/18 18:55 Dose: 15 mcg Artificial Tears (Tears Naturale) 0 drop EA EYE PRN PRN PRN Reason: Dry Eyes Last Admin: 03/21/18 21:16 Dose: 1 drop Calcium Carbonate (Tums) 1,000 mg PO Q4H PRN PRN Reason: Heartburn or Indigestion Dextrose/Water (Dextrose 50%) 25 gm SLOW IVP PRN PRN PRN Reason: Hypoglycemia Docusate Sodium (Colace) 100 mg PO BID [facility] Last Admin: 03/22/18 21:00 Dose: Not Given Enoxaparin Sodium (Lovenox) 40 mg SC 2100 [facility] Last Admin: 03/22/18 21:00 Dose: Not Given Finasteride (Proscar) 5 mg PO QPM [facility] Last Admin: 03/22/18 20:59 Dose: 5 mg Gabapentin (Neurontin) 900 mg PO TID [facility] Last Admin: 03/22/18 21:01 Dose: 900 mg Glucagon (Glucagon) 1 mg IM PRN PRN PRN Reason: Hypoglycemia Dextrose/Water (D5w) 1,000 mls @ 0 mls/hr IV .Q0M PRN; As Directed PRN Reason: Hypoglycemia Sodium Chloride (Normal Saline 0.9%) 1,000 mls @ 50 mls/hr IV .Q20H [facility] Last Admin: 03/22/18 09:47 Dose: Not Given Ceftriaxone Sodium 2 gm/Miscellaneous Medication 1 each/ Sodium Chloride 100 mls @ 200 mls/hr IVPB 2100 [facility] Last Admin: 03/22/18 21:00 Dose: 100 mls Insulin Human Regular (Humulin R) 0 units SC .MILD SLIDING SCALE PRN PRN Reason: Mild Correctional Scale Last Admin: 03/21/18 12:00 Dose: 3 unit Insulin Human Regular (Humulin R) 0 units SC .BEDTIME SLIDING SC PRN PRN Reason: Bedtime Correctional Scale Last Admin: 03/20/18 00:54 Dose: 2 unit Miscellaneous Medication (Pharmacy To Dose) 1 each IVPB ONE PRN PRN Reason: Pharmacy to dose Stop: 04/18/18 16:28 Nitroglycerin (Nitrostat) 0.4 mg PO Q5MIN PRN PRN Reason: Chest Pain Ondansetron HCl (Zofran Odt) 4 mg PO Q6H PRN PRN Reason: Nausea/Vomiting Last Admin: 03/21/18 14:58 Dose: 4 mg Ondansetron HCl (Zofran) 4 mg IVP Q6H PRN PRN Reason: Nausea/Vomiting Pantoprazole Sodium (Protonix) 40 mg PO DAILY [facility] Last Admin: 03/22/18 09:47 Dose: 40 mg Senna (Senokot) 2 tab PO HSPRN PRN PRN Reason: Constipation Sodium Chloride (Flush - Normal Saline) 10 ml IVF Q12HR [facility] Last Admin: 03/22/18 21:01 Dose: 10 ml Sodium Chloride (Flush - Normal Saline) 10 ml IVF PRN PRN PRN Reason: Saline Flush Tramadol HCl (Ultram) 50 mg PO QID [facility] Last Admin: 03/22/18 20:59 Dose: 50 mg
[2018-03-22] MEDS ORDERED: Doxycycline 100 MG CAP PO SCH (21:30)
[2018-03-23 05:05] LABS: ALT (SGPT) 14 U/L (8-55); AST (SGOT) 21 U/L (5-34); Albumin 2.9 g/dL (3.4-4.8); Alkaline Phosphatase 47 U/L (40-150); Anion Gap 10 mmol/L (10-20); BUN (Urea Nitrogen) 14 mg/dL (8.4-25.7); Bilirubin, Total 0.3 mg/dL (0.2-1.2); Calc. Creatinine Clearance 104 mL/min (70-130); Calcium 8.4 mg/dL (7.8-10.44); Carbon Dioxide 28 mmol/L (23-31); Chloride 105 mmol/L (98-107); Estimated GFR-MDRD Greater than 90; Globulin 2.5 g/dL (2.4-3.5); Glucose 142 mg/dL (83-110); Magnesium 1.9 mg/dL (1.6-2.6); Potassium 3.6 mmol/L (3.5-5.1); Protein, Total 5.4 g/dL (5.8-8.1); Sodium 139 mmol/L (136-145)
[2018-03-23 05:50] LABS: Band 6 % (5-11); Eosinophils 6 % (0-10); Hemoglobin 10.1 g/dL (14.0-18.0); Lymphocytes 18 % (21-51); MDiff Complete? YES; Mean Corpuscular HGB CONC 34.9 g/dL (32.0-36.0); Mean Corpuscular Hemoglobin 32.9 pg (27.0-31.0); Mean Corpuscular Volume 94.2 fL (78.0-98.0); Mean Platelet Volume 10.2 fL (7.4-10.4); Monocytes 14 % (0-10); Myelocyte 5 % (0-0); Neutrophil 50 % (42-75); PLT Morphology Comment Appears Decreased; Platelet Count 89 thou/uL (130-400); RBC Distribution Width 12.1 % (11.5-14.5); Reactive Lymphocytes 1 % (0-10); Red Blood Cell (RBC) Count 3.08 mill/uL (4.70-6.10); White Blood Cell (WBC) Count 6.9 thou/uL (4.8-10.8)
[2018-03-23] MEDS: Arformoterol 15 MCG/2 ML NEB NEB SCH ×2 (08:27→18:32)
[2018-03-23] MEDS: Doxycycline 100 MG CAP PO SCH ×2 (08:57→20:57)
[2018-03-23] MEDS: Amlodipine 5 MG TAB PO SCH (08:57)
[2018-03-23] MEDS: Gabapentin 300 MG CAP PO SCH ×3 (08:58→21:01)
[2018-03-23] MEDS: traMADol HCl 50 MG TAB PO SCH ×4 (08:58→20:58)
[2018-03-23] MEDS: Docusate 100 MG CAP PO SCH ×2 (08:59→20:56)
[2018-03-23] MEDS ORDERED: Furosemide 20 MG/2 ML VIAL SLOW IVP SCH (09:45)
--- NOTE | 2018-03-23 10:17 | PRG ---
DATE OF SERVICE: 03/23/2018 SERVICE: Pulmonary Medicine. INTERVAL HISTORY: The patient is doing fine from a respiratory standpoint. He denies any current ch est discomfort, nausea, vomiting, fevers, or chills. Otherwise, he had an uneventful evening. He is breathing comfortably. He remains extraordinarily weak, and when he got up today, he felt weak and lightheaded. He had a bowel movement, which was black and sticky. Otherwise, there has been no inte rval change to his condition, and he had an uneventful evening. PHYSICAL EXAMINATION: VITAL SIGNS: Afebrile, pulse 71, blood pressure 174/55, respirations 16, saturation 94% on room air. GENERAL: The patient is awake, alert, in no apparent distress. LUNGS: Decent air entry. No crackles are present. There is good air entry with no prolonged expira tion or wheezing. HEART: Normal rate. Regular. ABDOMEN: Soft, nontender, nondistended. Bowel sounds are positive. MUSCULOSKELETAL: No cyanosis or clubbing. There is trace pitting in the bilateral lower extremities . NEUROLOGIC: Grossly nonfocal. LABORATORY DATA: WBC 6.9, hemoglobin 10.1, platelets 89,000. Lymphocyte count is 18%, band count 6% . INR 1.3. Basic metabolic profile and liver function studies were all unremarkable. Urinalysis is unremarkable. Blood cultures x2 and urine culture are negative. Gastric occult is positive, fecal occult negative for blood. ASSESSMENT: 1. Severe sepsis. 2. Left lower extremity cellulitis, suspected. 3. Bradycardia with 2:1 arteriovenous block, status post temporary pacemaker placement, [place] rate has picked back up. 4. Acute blood loss anemia, secondary to upper gastrointestinal bleed, resolved. PLAN: I will continue supportive care. The patient will remain in the ICU until EP decides what to do about the temporary pacemaker. I will certainly need to continue monitoring him on telemetry for the time being. Once he stabilizes, we can consider gentle diuretics through time. Pulmonary Critic al Care will follow.
--- NOTE | 2018-03-23 13:54 | PDOC.CTH ---
<Arlin Sher - Last Filed: 03/23/18 13:50> Cardiology Progress Note - Subjective EP progress note: Patient seen and evaluated. Appears rested and is more interactive. Feeling better. Unclear about plan of care or treatments received. No new cardiac concerns or complaints. Denies fever, chills, nausea, vomiting, or diarrhea - Objective Vital Signs Temp Pulse Resp BP Pulse Ox 03/23/18 11:52 97.9 F 62 20 148/56 H 97 03/23/18 08:57 71 03/23/18 08:27 71 16 94 L 03/23/18 08:00 98.3 F 71 18 94 L 03/23/18 07:52 98.3 F 68 17 174/55 H 94 L 03/23/18 04:03 97.3 F L 64 12 166/58 H 95 Admit Weight 230 lb 9.656 oz Weight 235 lb 03/22/18 03/23/18 03/24/18 06:59 06:59 06:59 Intake Total 4284 900 Output Total 1410 450 Balance 2874 450 - Physical Examination General/Neuro: alert & oriented x3, NAD Neck: no JVD present Lungs: CTA, unlabored respirations Heart: RRR Abdomen: NT/ND, soft - Telemetry Telemetry Rhythm: NSR - Labs Result Diagrams: 03/23/18 03:23 03/23/18 03:23 Troponin/CKMB CK-MB (CK-2) 4.2 ng/mL (0-6.6) 03/19/18 15:08 Troponin I 0.095 ng/mL (< 0.028) H 03/19/18 20:45 - Assessment/Plan IMPRESSION: Transient severe bradycardia with 2:1 AV block and LBBB. - S/P temporary PPM 03/19/18. - Now improved. Pacemaker programmed down to 50BPM. - LE cellulitis. H/o bacteremia in 08/2017. Neg BCX so far. - Hematemesis; Stable anemia Plan Continue to monitor for bradycardia and leave temporary PPM in. Might need permanent PPM in the future, after resolution of infection. At this point he is pacing minimally. <Zain Winter - Last Filed: 03/23/18 16:11> Cardiology Progress Note - Objective Vital Signs Temp Pulse Pulse Resp BP BP Pulse Ox 03/23/18 15:16 98.2 F 76 24 H 173/68 H 93 L 03/23/18 14:28 80 163/66 H 03/23/18 11:52 97.9 F 62 20 148/56 H 97 03/23/18 08:57 71 03/23/18 08:27 71 16 94 L 03/23/18 08:00 98.3 F 71 18 94 L 03/23/18 07:52 98.3 F 68 17 174/55 H 94 L Admit Weight 230 lb 9.656 oz Weight 235 lb 03/22/18 03/23/18 03/24/18 06:59 06:59 06:59 Intake Total 4284 900 Output Total 2729 829 9242 Balance 2874 450 -1900 - Labs Result Diagrams: 03/23/18 03:23 03/23/18 03:23 Troponin/CKMB CK-MB (CK-2) 4.2 ng/mL (0-6.6) 03/19/18 15:08 Troponin I 0.095 ng/mL (< 0.028) H 03/19/18 20:45 Attending Addendum - Attending Addendum Date/Time: 03/23/18 1611 I personally evaluated the patient and discussed the management with Ms Sher. I agree with the History, Examination, Assessment and Plan documented above with any addition or exceptions noted below.
--- NOTE | 2018-03-23 15:59 | PDOC.PN ---
- Subjective Encounter Start Date: 03/23/18 Encounter Start Time: 11:00 Patient seen and examined for Sepsis/Cellulitis/AV block. No new complaints. Events noted - Had dark stool this AM. - Objective Resuscitation Status: Resuscitation Status DNI:No Intubation MAR Reviewed: Yes Vital Signs & Weight: Vital Signs (12 hours) Temp Pulse Resp BP Pulse Ox 03/23/18 15:16 98.2 F 76 24 H 173/68 H 93 L 03/23/18 11:52 97.9 F 62 20 148/56 H 97 03/23/18 08:57 71 03/23/18 08:27 71 16 94 L 03/23/18 08:00 98.3 F 71 18 94 L 03/23/18 07:52 98.3 F 68 17 174/55 H 94 L 03/23/18 04:03 97.3 F L 64 12 166/58 H 95 Weight Admit Weight 230 lb 9.656 oz Weight 235 lb Most Recent Monitor Data Heart Rate from ECG 70 NIBP 107/41 NIBP BP-Mean 80 Respiration from ECG 22 SpO2 97 I&O: 03/22/18 03/23/18 03/24/18 06:59 06:59 06:59 Intake Total 4284 900 Output Total 6941 423 2307 Balance 2874 450 -1900 Result Diagrams: 03/23/18 03:23 03/23/18 03:23 Additional Labs: Accuchecks 03/23/18 03/23/18 03/22/18 10:53 05:50 20:21 POC Glucose 192 H 139 H 214 H 03/22/18 16:31 POC Glucose 169 H EKG Reviewed by me: Yes (Tele SR) Phys Exam - Physical Examination Constitutional: NAD Respiratory: no wheezing, no rhonchi Cardiovascular: RRR, no rub Gastrointestinal: soft, non-tender, positive bowel sounds Musculoskeletal: edema present (with erythema) Neurological: moves all 4 limbs Dx/Plan - Plan IMPRESSION: 1. Sepsis with acute organ dysfunction secondary to right lower extremity cellulitis. 2. High-degree AV block s/p temporary pacemaker 3. N/V/Upper gastrointestinal bleeding - resolved 4. Acute kidney injury. improving 5. Lactic acidosis secondary to sepsis. 6. Elevated troponins, probably secondary to sepsis and demand ischemia. 7. Elevated inflammatory markers, CRP was 15.9. 8. Thrombocytopenia, probably secondary to sepsis. 9. Diabetes mellitus type 2. on sliding scale 10. Hypertension. 11. Cholelithiasis without Acute Cholecystitis 12. Chronic obstructive pulmonary disease. on PRN nebs 13. Postherpetic neuralgia on tramadol and gabapentin. 14. Benign prostatic hypertrophy. PLAN: * Hold Lovenox due to ?GI bleed - Will monitor, Change PPI to BID * Cont current meds as below * Cont Atbx * AM labs * SNF Eval * Review of Systems - Review of Systems Respiratory: negative: Cough, Dry, Shortness of Breath, Hemoptysis, SOB with Excertion, Pleuritic Pain, Sputum, Wheezing Cardiovascular: negative: chest pain, palpitations, orthopnea, paroxysmal nocturnal dyspnea, edema, light headedness, other - Medications/Allergies Allergies/Adverse Reactions: Allergies Allergy/AdvReac Type Severity Reaction Status Date / Time ciprofloxacin [From Cipro] Allergy Verified 03/19/18 20:30 ciprofloxacin HCl Allergy Verified 03/19/18 20:30 [From Cipro] felodipine Allergy Verified 03/19/18 20:30 loratadine Allergy Verified 03/19/18 20:30 tiotropium bromide Allergy Verified 03/19/18 20:30 [From Spiriva with HandiHaler] venlafaxine HCl Allergy Verified 03/19/18 20:30 [From Effexor] Medications: Current Medications Acetaminophen (Tylenol) 650 mg PO Q4H PRN PRN Reason: Headache/Fever or Pain Acetaminophen (Tylenol) 650 mg [place] Q4H PRN PRN Reason: Headache/Fever or Pain Al Hydroxide/Mg Hydroxide (Maalox) 30 ml PO Q6H PRN PRN Reason: Heartburn or Indigestion Albuterol Sulfate (Ventolin) 2.5 mg NEB [id number] PRN PRN Reason: SOB &/or Wheezing Last Admin: 03/22/18 18:56 Dose: 2.5 mg Amlodipine Besylate (Norvasc) 2.5 mg PO DAILY [facility] Last Admin: 03/23/18 08:57 Dose: 2.5 mg Arformoterol Tartrate (Brovana) 15 mcg NEB BID-RT [facility] Last Admin: 03/23/18 08:27 Dose: 15 mcg Artificial Tears (Tears Naturale) 0 drop EA EYE PRN PRN PRN Reason: Dry Eyes Last Admin: 03/21/18 21:16 Dose: 1 drop Calcium Carbonate (Tums) 1,000 mg PO Q4H PRN PRN Reason: Heartburn or Indigestion Dextrose/Water (Dextrose 50%) 25 gm SLOW IVP PRN PRN PRN Reason: Hypoglycemia Docusate Sodium (Colace) 100 mg PO BID [facility] Last Admin: 03/23/18 08:59 Dose: Not Given Doxycycline Hyclate (Vibramycin) 100 mg PO BID [facility] Last Admin: 03/23/18 08:57 Dose: 100 mg Enoxaparin Sodium (Lovenox) 40 mg SC 2100 [facility] Last Admin: 03/22/18 21:00 Dose: Not Given Finasteride (Proscar) 5 mg PO QPM [facility] Last Admin: 03/22/18 20:59 Dose: 5 mg Fosinopril Sodium (Monopril) 10 mg PO BID [facility] Furosemide (Lasix) 20 mg SLOW IVP DAILY [facility] Gabapentin (Neurontin) 900 mg PO TID [facility] Last Admin: 03/23/18 15:00 Dose: 900 mg Glucagon (Glucagon) 1 mg IM PRN PRN PRN Reason: Hypoglycemia Dextrose/Water (D5w) 1,000 mls @ 0 mls/hr IV .Q0M PRN; As Directed PRN Reason: Hypoglycemia Ceftriaxone Sodium 2 gm/Miscellaneous Medication 1 each/ Sodium Chloride 100 mls @ 200 mls/hr IVPB 2100 [facility] Last Admin: 03/22/18 21:00 Dose: 100 mls Insulin Human Regular (Humulin R) 0 units SC .MILD SLIDING SCALE PRN PRN Reason: Mild Correctional Scale Last Admin: 03/21/18 12:00 Dose: 3 unit Insulin Human Regular (Humulin R) 0 units SC .BEDTIME SLIDING SC PRN PRN Reason: Bedtime Correctional Scale Last Admin: 03/20/18 00:54 Dose: 2 unit Miscellaneous Medication (Pharmacy To Dose) 1 each IVPB ONE PRN PRN Reason: Pharmacy to dose Stop: 04/18/18 16:28 Nitroglycerin (Nitrostat) 0.4 mg PO Q5MIN PRN PRN Reason: Chest Pain Ondansetron HCl (Zofran Odt) 4 mg PO Q6H PRN PRN Reason: Nausea/Vomiting Last Admin: 03/21/18 14:58 Dose: 4 mg Ondansetron HCl (Zofran) 4 mg IVP Q6H PRN PRN Reason: Nausea/Vomiting Pantoprazole Sodium (Protonix) 40 mg PO BID [facility] Senna (Senokot) 2 tab PO HSPRN PRN PRN Reason: Constipation Sodium Chloride (Flush - Normal Saline) 10 ml IVF Q12HR [facility] Last Admin: 03/23/18 08:59 Dose: Not Given Sodium Chloride (Flush - Normal Saline) 10 ml IVF PRN PRN PRN Reason: Saline Flush Tramadol HCl (Ultram) 50 mg PO QID [facility] Last Admin: 03/23/18 15:00 Dose: 50 mg
[2018-03-23] MEDS: cefTRIAXone\\ROCEPHIN 2 GM, Admixture Fee 1 EACH in Sodium Chloride 0.9% 100 ML IVPB SCH (20:55)
[2018-03-23] MEDS: Finasteride 5 MG TAB PO SCH (20:57)
[2018-03-24 04:40] LABS: Anion Gap 9 mmol/L (10-20); BUN (Urea Nitrogen) 11 mg/dL (8.4-25.7); Calc. Creatinine Clearance 104 mL/min (70-130); Calcium 8.6 mg/dL (7.8-10.44); Carbon Dioxide 28 mmol/L (23-31); Chloride 104 mmol/L (98-107); Estimated GFR-MDRD Greater than 90; Glucose 143 mg/dL (83-110); Magnesium 1.6 mg/dL (1.6-2.6); Potassium 3.5 mmol/L (3.5-5.1); Sodium 137 mmol/L (136-145)
[2018-03-24 05:22] LABS: Band 11 % (5-11); Eosinophils 5 % (0-10); Hemoglobin 10.5 g/dL (14.0-18.0); Lymphocytes 31 % (21-51); MDiff Complete? YES; Mean Corpuscular HGB CONC 34.6 g/dL (32.0-36.0); Mean Corpuscular Hemoglobin 32.8 pg (27.0-31.0); Mean Corpuscular Volume 94.8 fL (78.0-98.0); Mean Platelet Volume 7.5 fL (7.4-10.4); Monocytes 11 % (0-10); Neutrophil 42 % (42-75); PLT Morphology Comment Appears Decreased; Platelet Count 117 thou/uL (130-400); Red Blood Cell (RBC) Count 3.21 mill/uL (4.70-6.10); White Blood Cell (WBC) Count 8.2 thou/uL (4.8-10.8)
[2018-03-24] MEDS: Arformoterol 15 MCG/2 ML NEB NEB SCH ×2 (06:18→18:20)
[2018-03-24] MEDS: Amlodipine 5 MG TAB PO SCH (08:33)
[2018-03-24] MEDS: Doxycycline 100 MG CAP PO SCH ×2 (08:34→20:16)
[2018-03-24] MEDS: traMADol HCl 50 MG TAB PO SCH (08:34)
[2018-03-24] MEDS: Docusate 100 MG CAP PO SCH ×2 (08:36→20:15)
[2018-03-24] MEDS: Furosemide 20 MG/2 ML VIAL SLOW IVP SCH (08:36)
[2018-03-24] MEDS: Gabapentin 300 MG CAP PO SCH ×3 (08:46→20:15)
[2018-03-24] MEDS: Artificial Tears 18 DROP/0.9 ML EA EYE PRN (08:48)
--- NOTE | 2018-03-24 10:39 | PRG ---
DATE OF SERVICE: 03/24/2018 SUBJECTIVE: Mr. De La Cruz is here recovering in the step down ICU. His infection is improving he has in his lower extremity. OBJECTIVE: VITAL SIGNS: Blood pressure is 162/56, heart rate 77, respiration is 18, temperature 97.8 degrees Fa hrenheit. GENERAL: He is alert and oriented, obese man in no apparent distress. NECK: Supple. Jugular veins not distended. Right IJ temporary pacemaker in place. CHEST: Coarse, no crackles. CARDIOVASCULAR: Heart sounds are regular to rate and rhythm. No murmur or gallop. ABDOMEN: Benign. Bowel sounds positive. EXTREMITIES: Lower extremities with 1+ edema, right lower extremity is with improving redness. LABORATORY DATA: White cell count is 8.2, hemoglobin 10.5, platelet count is 117. Sodium 137, potas sium 3.5, BUN 11, creatinine 0.74. Telemetry strips reveals sinus rhythm, first degree AV block, lef t bundle branch block. ASSESSMENT AND PLAN: Mr. De La Cruz is a pleasant 87-year-old man with prior history of transient ed re bradycardia, 2:1 AV block and underlying chronic left bundle branch block, first degree AV block. He underwent a stent temporary pacer placed on 03/19/2018. With improvement of his hematemesis and nausea and vomiting his bradycardia improved, currently has not been pacing at 50 beats per minute. At this point the plan is to continue IV antibiotic treatment for lower extremity cellulitis. For no w, we will leave the temporary pacemaker in place. Hence, possibly recurrence. Eventually, decision will be made whether to replace temporary pacemaker with a permanent pacemaker or continue to monito r the patient without it. With the underlying first degree AV block and left bundle branch block I a m leaning towards replacement and a significant increase in conduction is mild present. Nevertheless , infection issues need to be improved prior to that.
[2018-03-24] MEDS ORDERED: traMADol HCl 50 MG TAB PO PRN (11:26)
[2018-03-24] MEDS ORDERED: Potassium Chloride 20 MEQ TAB PO SCH (11:30)
[2018-03-24] MEDS ORDERED: Magnesium Sulfate 2 GM in Sodium Chloride 0.9% 100 ML IVPB SCH (11:30)
[2018-03-24] MEDS: Insulin Regular 300 UNITS/3 ML VIAL SC PRN (12:00)
--- NOTE | 2018-03-24 13:31 | PRG ---
DATE OF SERVICE: 03/24/2018 SERVICE: Pulmonary Medicine. INTERVAL HISTORY: The patient is doing great from a respiratory standpoint. His breathing is comfor table. Denies any chest pain, nausea, vomiting, fevers or chills. He had significant amount of urin e output yesterday. Otherwise, there has been no interval change to his condition. He is having a b owel movement right now. I do not know the character of it yet. PHYSICAL EXAMINATION: VITAL SIGNS: Afebrile, pulse 77, blood pressure 162/56, respirations 18, saturation 95% on room air. GENERAL: The patient is awake, alert, no apparent distress. LUNGS: Excellent air entry. Dependent crackles are minimal. They have actually improved since yest erday. HEART: Normal rate, regular. ABDOMEN: Soft, nontender, nondistended. Bowel sounds are positive. MUSCULOSKELETAL: No cyanosis or clubbing. There are 1-2+ pitting in the bilateral lower extremities . NEUROLOGIC: Grossly nonfocal. LABORATORY DATA: WBC 8.2, hemoglobin 10.5, platelets 117,000, lymphocyte count has improved to 31, b ands 11%, neutrophils are settling down to 42%. INR 1.3. Basic metabolic profile is unremarkable. His potassium 3.5 and magnesium 1.6. Urine culture and blood cultures x2 are unremarkable. ASSESSMENT: 1. Severe sepsis. 2. Left lower extremity cellulitis. 3. Bradycardia with 2:1 AV block, status post temporary pacemaker placement, currently not relying o n pacemaker; however. 4. Acute blood loss anemia secondary to upper gastrointestinal bleed, resolved. DISCUSSION AND PLAN: We will replace potassium and magnesium today. I will deescalate her Lasix to once daily. Tramadol will be changed to p.r.n. Dr. Winter has suggested that the patient is stable fo r transition out of the IMCU to the telemetry unit where we will continue to observe his heart for th e next day or two. When he arrives on the floor, he will have no further requirements for inpatient Pulmonary or Critical Care opinion, and we will sign off. Please call with additional questions or c oncerns moving forward.
[2018-03-24] MEDS ORDERED: Gabapentin 300 MG CAP PO SCH (14:30)
[2018-03-24] MEDS: Finasteride 5 MG TAB PO SCH (20:15)
[2018-03-24] MEDS: cefTRIAXone\\ROCEPHIN 2 GM, Admixture Fee 1 EACH in Sodium Chloride 0.9% 100 ML IVPB SCH (21:13)
--- NOTE | 2018-03-24 22:44 | PDOC.PN ---
- Subjective Encounter Start Date: 03/24/18 Encounter Start Time: 13:00 Patient seen and examined for Sepsis/Bradycardia. Normal BM earlier today. No new complaints. No overnight events - Objective Resuscitation Status: Resuscitation Status DNI:No Intubation MAR Reviewed: Yes Vital Signs & Weight: Vital Signs (12 hours) Temp Pulse Pulse Pulse Resp BP BP 03/24/18 19:53 98.3 F 75 20 03/24/18 19:20 98.3 F 75 20 03/24/18 18:20 80 18 03/24/18 15:57 97.5 F L 95 20 03/24/18 11:45 97.6 F 70 21 H 03/24/18 11:18 70 69 177/65 H 150/60 H BP BP Pulse Ox Pulse Ox Pulse Ox 03/24/18 19:53 165/63 H 95 03/24/18 19:20 03/24/18 18:20 93 L 03/24/18 15:57 169/70 H 94 L 03/24/18 11:45 177/65 H 97 03/24/18 11:18 97 96 Weight Admit Weight 230 lb 9.656 oz Weight 134 lb Most Recent Monitor Data Heart Rate from ECG 70 NIBP 107/41 NIBP BP-Mean 80 Respiration from ECG 22 SpO2 97 I&O: 03/23/18 03/24/18 03/25/18 06:59 06:59 06:59 Intake Total 900 1950 450 Output Total 450 2800 2600 Balance 450 850 -2150 Result Diagrams: 03/25/18 04:31 03/25/18 04:31 Additional Labs: Accuchecks 03/24/18 03/24/18 03/24/18 20:45 17:00 10:40 POC Glucose 200 H 138 H 210 H EKG Reviewed by me: Yes (Tele SR) Phys Exam - Physical Examination Constitutional: NAD Respiratory: no wheezing, no rhonchi Cardiovascular: RRR, no rub Gastrointestinal: soft, non-tender, positive bowel sounds Musculoskeletal: edema present (Erythema improving) Neurological: moves all 4 limbs Dx/Plan - Plan DVT proph w/SCDs IMPRESSION: 1. Sepsis with acute organ dysfunction secondary to right lower extremity cellulitis. on Ceftriaxone with Doxy 2. High-degree AV block s/p temporary pacemaker 3. N/V/Upper gastrointestinal bleeding - resolved, Had dark BM yesterday - no recurrence - Lovenox on hold 4. Acute kidney injury. improving 5. Lactic acidosis secondary to sepsis. 6. Elevated troponins, probably secondary to sepsis and demand ischemia. 7. Elevated inflammatory markers, CRP was 15.9. 8. Thrombocytopenia, probably secondary to sepsis. 9. Diabetes mellitus type 2. on sliding scale 10. Hypertension. 11. Cholelithiasis without Acute Cholecystitis 12. Chronic obstructive pulmonary disease. on PRN nebs 13. Postherpetic neuralgia on tramadol and gabapentin. 14. Benign prostatic hypertrophy. PLAN: * Cont current meds as below * Cont current dose of Fosinopril and Amlodipine with PRN meds * Cont current meds as below * Cont Atbx * SNF Eval pend * AM labs Review of Systems - Review of Systems Respiratory: negative: Cough, Dry, Shortness of Breath, Hemoptysis, SOB with Excertion, Pleuritic Pain, Sputum, Wheezing Cardiovascular: negative: chest pain, palpitations, orthopnea, paroxysmal nocturnal dyspnea, edema, light headedness, other - Medications/Allergies Allergies/Adverse Reactions: Allergies Allergy/AdvReac Type Severity Reaction Status Date / Time ciprofloxacin [From Cipro] Allergy Verified 03/19/18 20:30 ciprofloxacin HCl Allergy Verified 03/19/18 20:30 [From Cipro] felodipine Allergy Verified 03/19/18 20:30 loratadine Allergy Verified 03/19/18 20:30 tiotropium bromide Allergy Verified 03/19/18 20:30 [From Spiriva with HandiHaler] venlafaxine HCl Allergy Verified 03/19/18 20:30 [From Effexor] Medications: Current Medications Acetaminophen (Tylenol) 650 mg PO Q4H PRN PRN Reason: Headache/Fever or Pain Acetaminophen (Tylenol) 650 mg VA Q4H PRN PRN Reason: Headache/Fever or Pain Al Hydroxide/Mg Hydroxide (Maalox) 30 ml PO Q6H PRN PRN Reason: Heartburn or Indigestion Albuterol Sulfate (Ventolin) 2.5 mg NEB [id number] PRN PRN Reason: SOB &/or Wheezing Last Admin: 03/22/18 18:56 Dose: 2.5 mg Amlodipine Besylate (Norvasc) 2.5 mg PO DAILY [facility] Last Admin: 03/24/18 08:33 Dose: 2.5 mg Arformoterol Tartrate (Brovana) 15 mcg NEB BID-RT [facility] Last Admin: 03/24/18 18:20 Dose: 15 mcg Artificial Tears (Tears Naturale) 0 drop EA EYE PRN PRN PRN Reason: Dry Eyes Last Admin: 03/24/18 08:48 Dose: 20 drop Calcium Carbonate (Tums) 1,000 mg PO Q4H PRN PRN Reason: Heartburn or Indigestion Dextrose/Water (Dextrose 50%) 25 gm SLOW IVP PRN PRN PRN Reason: Hypoglycemia Docusate Sodium (Colace) 100 mg PO BID [facility] Last Admin: 03/24/18 20:15 Dose: Not Given Doxycycline Hyclate (Vibramycin) 100 mg PO BID [facility] Last Admin: 03/24/18 20:16 Dose: 100 mg Finasteride (Proscar) 5 mg PO QPM [facility] Last Admin: 03/24/18 20:15 Dose: 5 mg Fosinopril Sodium (Monopril) 10 mg PO BID [facility] Last Admin: 03/24/18 20:16 Dose: 10 mg Furosemide (Lasix) 20 mg SLOW IVP DAILY [facility] Last Admin: 03/24/18 08:36 Dose: 20 mg Gabapentin (Neurontin) 900 mg PO TID [facility] Last Admin: 03/24/18 20:15 Dose: 900 mg Glucagon (Glucagon) 1 mg IM PRN PRN PRN Reason: Hypoglycemia Dextrose/Water (D5w) 1,000 mls @ 0 mls/hr IV .Q0M PRN; As Directed PRN Reason: Hypoglycemia Ceftriaxone Sodium 2 gm/Miscellaneous Medication 1 each/ Sodium Chloride 100 mls @ 200 mls/hr IVPB 2100 [facility] Last Admin: 03/24/18 21:13 Dose: 100 mls Insulin Human Regular (Humulin R) 0 units SC .MILD SLIDING SCALE PRN PRN Reason: Mild Correctional Scale Last Admin: 03/24/18 12:00 Dose: 3 unit Insulin Human Regular (Humulin R) 0 units SC .BEDTIME SLIDING SC PRN PRN Reason: Bedtime Correctional Scale Last Admin: 03/20/18 00:54 Dose: 2 unit Miscellaneous Medication (Pharmacy To Dose) 1 each IVPB ONE PRN PRN Reason: Pharmacy to dose Stop: 04/18/18 16:28 Nitroglycerin (Nitrostat) 0.4 mg PO Q5MIN PRN PRN Reason: Chest Pain Ondansetron HCl (Zofran Odt) 4 mg PO Q6H PRN PRN Reason: Nausea/Vomiting Last Admin: 03/21/18 14:58 Dose: 4 mg Ondansetron HCl (Zofran) 4 mg IVP Q6H PRN PRN Reason: Nausea/Vomiting Pantoprazole Sodium (Protonix) 40 mg PO BID [facility] Last Admin: 03/24/18 20:15 Dose: 40 mg Senna (Senokot) 2 tab PO HSPRN PRN PRN Reason: Constipation Sodium Chloride (Flush - Normal Saline) 10 ml IVF Q12HR [facility] Last Admin: 03/24/18 20:16 Dose: 10 ml Sodium Chloride (Flush - Normal Saline) 10 ml IVF PRN PRN PRN Reason: Saline Flush Tramadol HCl (Ultram) 50 mg PO QID PRN PRN Reason: Pain Last Admin: 03/24/18 20:16 Dose: 50 mg
[2018-03-25 05:48] LABS: Anion Gap 11 mmol/L (10-20); BUN (Urea Nitrogen) 10 mg/dL (8.4-25.7); Calc. Creatinine Clearance 60 mL/min (70-130); Calcium 8.7 mg/dL (7.8-10.44); Carbon Dioxide 29 mmol/L (23-31); Chloride 103 mmol/L (98-107); Estimated GFR-MDRD Greater than 90; Glucose 154 mg/dL (83-110); Magnesium 1.7 mg/dL (1.6-2.6); Potassium 3.7 mmol/L (3.5-5.1); Sodium 139 mmol/L (136-145)
[2018-03-25 06:07] LABS: Band 6 % (5-11); Eosinophils 6 % (0-10); Hemoglobin 10.7 g/dL (14.0-18.0); Lymphocytes 27 % (21-51); MDiff Complete? YES; Mean Corpuscular Hemoglobin 32.1 pg (27.0-31.0); Mean Corpuscular Volume 94.3 fL (78.0-98.0); Mean Platelet Volume 7.7 fL (7.4-10.4); Metamyelocyte 2 % (0-0); Monocytes 14 % (0-10); Myelocyte 2 % (0-0); Neutrophil 43 % (42-75); PLT Morphology Comment Appears Adequate; Platelet Count 139 thou/uL (130-400); RBC Distribution Width 12.2 % (11.5-14.5); Red Blood Cell (RBC) Count 3.33 mill/uL (4.70-6.10); White Blood Cell (WBC) Count 7.2 thou/uL (4.8-10.8)
[2018-03-25] MEDS: Arformoterol 15 MCG/2 ML NEB NEB SCH ×2 (08:11→19:20)
[2018-03-25] MEDS: Docusate 100 MG CAP PO SCH ×2 (08:49→21:50)
[2018-03-25] MEDS: Gabapentin 300 MG CAP PO SCH ×3 (08:53→21:51)
[2018-03-25] MEDS: Furosemide 20 MG/2 ML VIAL SLOW IVP SCH (08:53)
[2018-03-25] MEDS: Doxycycline 100 MG CAP PO SCH ×2 (08:53→21:51)
[2018-03-25] MEDS: Amlodipine 5 MG TAB PO SCH (08:59)
--- NOTE | 2018-03-25 09:01 | PRG ---
DATE OF SERVICE: 03/25/2018 He remains in the IM in no distress. PHYSICAL EXAMINATION: VITAL SIGNS: His vital signs are stable. Blood pressure 160/56, sats 96% on room air, respirations 16, temperature 97. CHEST: Chest reveals decreased breath sounds, no wheezing. CARDIAC: Normal S1, S2. No gallops. ABDOMEN: Soft, no masses. LABORATORY: White count 10,000, H&H 10 and 31, platelet count is normal. Electrolytes are normal. IMPRESSION: 1. Cellulitis, stable. 2. Diabetes. 3. Chronic obstructive pulmonary disease. 4. Bradycardia. PLAN: The patient can be transferred out of the [facility] to a monitored bed. Antibiotics, neb treatment s. I will follow.
[2018-03-25] MEDS ORDERED: Amlodipine 5 MG TAB PO SCH (12:00)
--- NOTE | 2018-03-25 12:58 | PRG ---
DATE OF SERVICE: 03/25/2018 REFERRING PHYSICIAN: Dr. Clinton. SUBJECTIVE: Mr. De La Cruz is doing better. His foot is less red and he is overall feeling stronger a s well. OBJECTIVE: VITAL SIGNS: T-max is 98.3, currently 97.4. Blood pressure 160/58, heart rate 73, respirations 16. The patient is afebrile. GENERAL: He is alert and oriented man with elevated BMI, in no apparent distress. NECK: Supple. Jugular veins not distended. The right subclavian temporary pacemaker line in place unchanged. ABDOMEN: Benign. Bowel sounds positive. EXTREMITIES: Lower extremities edema, clubbing or cyanosis. LABORATORY DATA: White cell count 7.2 decreasing trend, hemoglobin 10.7, platelet count is 139. The microbiology is revealed blood cultures negative x5 days. Urine growth negative. Also, the occult blood from gastric fluid was positive on the 6th. Telemetry strips revealed sinus rhythm, first degree AV block. No ventricular pacing since the pacem thierry was programmed to 50 beats per minute. ASSESSMENT AND PLAN: Mr. De La Cruz is a pleasant 87-year-old man with history of hypertension, type 2 diabetes, chronic obstructive pulmonary disease, who also had a remote history of recurrent lower ex tremity cellulitis and in the past bacteremia was also noted. At this time, [facility] [place], but no bacteremia was present at this time with negative blood cultures x2. Initially, his r hythm was with 2:1 AV block, which has improved with medical stabilization. Nevertheless, a temporar y pacemaker was placed initially for improving his heart rates and still present at this time. Hence we programmed the pacemaker down to 50. No recurrence is noted. Baseline rhythm is still first-degree AV block and bundle branch block pattern on telemetry strips. We discussed the treatment options with him. 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 He has a higher chance of progression to complete AV block in the future. Now that the infection seems to be resolving. It might be reasonable to consider pr oceeding with a pacemaker placement. So far, no evidence of endocarditis is noted. Blood cultures a re all negative. We will repeat an echocardiogram to assess his exact LV function infection an d we will likely proceed with pacemaker placement tomorrow. We have discussed this with the family a nd they all agreed as well as the patient agreed with the plan. Risk of the procedure was discussed in particular the chance of future infections also were detailed. Thank you for allowing us to participate in the care of this patient.
[2018-03-25] MEDS: Heparin 5,000 UNITS/ML VIAL SC SCH ×2 (16:23→21:51)
--- NOTE | 2018-03-25 17:57 | PDOC.PN ---
- Subjective Encounter Start Date: 03/25/18 Encounter Start Time: 17:37 Patient seen and examined for Sepsis/AV block. No new complaints. No overnight events - Objective Resuscitation Status: Resuscitation Status DNI:No Intubation MAR Reviewed: Yes Vital Signs & Weight: Vital Signs (12 hours) Temp Pulse Pulse Pulse Resp BP BP 03/25/18 16:19 98.0 F 67 20 03/25/18 12:47 03/25/18 12:42 70 03/25/18 12:22 97.8 F 74 19 03/25/18 11:38 03/25/18 11:27 97.8 F 70 20 03/25/18 10:20 73 71 190/70 H 03/25/18 08:59 73 162/58 H 03/25/18 08:11 73 16 03/25/18 08:00 97.4 F L 73 16 03/25/18 07:52 71 137/62 03/25/18 07:38 97.4 F L 73 20 BP BP BP Pulse Ox Pulse Ox Pulse Ox 03/25/18 16:19 167/72 H 96 03/25/18 12:47 181/78 H 03/25/18 12:42 03/25/18 12:22 198/78 H 96 03/25/18 11:38 170/55 H 03/25/18 11:27 185/71 H 98 03/25/18 10:20 178/62 H 95 93 L 03/25/18 08:59 03/25/18 08:11 95 03/25/18 08:00 95 03/25/18 07:52 94 L 03/25/18 07:38 161/56 H 95 Weight Admit Weight 230 lb 9.656 oz Weight 134 lb Most Recent Monitor Data Heart Rate from ECG 70 NIBP 107/41 NIBP BP-Mean 80 Respiration from ECG 22 SpO2 97 I&O: 03/24/18 03/25/18 03/26/18 06:59 06:59 06:59 Intake Total 1950 1360 Output Total 2800 3100 Balance -850 -1740 Result Diagrams: 03/26/18 04:19 03/26/18 04:19 Additional Labs: Accuchecks 03/25/18 03/25/18 03/24/18 10:44 05:46 20:45 POC Glucose 192 H 154 H 200 H EKG Reviewed by me: Yes (Tele SR) Phys Exam - Physical Examination Constitutional: NAD Respiratory: no wheezing, no rhonchi Cardiovascular: RRR, no rub Gastrointestinal: soft, non-tender, positive bowel sounds Musculoskeletal: no edema Dx/Plan - Plan DVT proph w/SCDs IMPRESSION: 1. Sepsis with acute organ dysfunction secondary to right lower extremity cellulitis. on Ceftriaxone with Doxy 2. High-degree AV block s/p temporary pacemaker 3. N/V/Upper gastrointestinal bleeding - resolved, Had dark BM yesterday - no recurrence - Lovenox on hold 4. Thrombocytopenia, probably secondary to sepsis. improving 5. Diabetes mellitus type 2. on sliding scale PLAN: * Permanent pacemaker in AM * Cont Ceftriaxone and Doxycycline * Cont current meds as below * BP better after increasing Fosinopril and Amlodipine * Disposition to SNF in 2-3 days if stable * AM labs * Lovenox on hold for possible melena - seems to have resolved. Review of Systems - Review of Systems Respiratory: negative: Cough, Dry, Shortness of Breath, Hemoptysis, SOB with Excertion, Pleuritic Pain, Sputum, Wheezing Cardiovascular: negative: chest pain, palpitations, orthopnea, paroxysmal nocturnal dyspnea, edema, light headedness, other - Medications/Allergies Allergies/Adverse Reactions: Allergies Allergy/AdvReac Type Severity Reaction Status Date / Time ciprofloxacin [From Cipro] Allergy Verified 03/19/18 20:30 ciprofloxacin HCl Allergy Verified 03/19/18 20:30 [From Cipro] felodipine Allergy Verified 03/19/18 20:30 loratadine Allergy Verified 03/19/18 20:30 tiotropium bromide Allergy Verified 03/19/18 20:30 [From Spiriva with HandiHaler] venlafaxine HCl Allergy Verified 03/19/18 20:30 [From Effexor] Medications: Current Medications Acetaminophen (Tylenol) 650 mg PO Q4H PRN PRN Reason: Headache/Fever or Pain Acetaminophen (Tylenol) 650 mg HI Q4H PRN PRN Reason: Headache/Fever or Pain Al Hydroxide/Mg Hydroxide (Maalox) 30 ml PO Q6H PRN PRN Reason: Heartburn or Indigestion Albuterol Sulfate (Ventolin) 2.5 mg NEB [id number] PRN PRN Reason: SOB &/or Wheezing Last Admin: 03/22/18 18:56 Dose: 2.5 mg Amlodipine Besylate (Norvasc) 5 mg PO DAILY [facility] Arformoterol Tartrate (Brovana) 15 mcg NEB BID-RT [facility] Last Admin: 03/25/18 08:11 Dose: 15 mcg Artificial Tears (Tears Naturale) 0 drop EA EYE PRN PRN PRN Reason: Dry Eyes Last Admin: 03/24/18 08:48 Dose: 20 drop Calcium Carbonate (Tums) 1,000 mg PO Q4H PRN PRN Reason: Heartburn or Indigestion Dextrose/Water (Dextrose 50%) 25 gm SLOW IVP PRN PRN PRN Reason: Hypoglycemia Docusate Sodium (Colace) 100 mg PO BID [facility] Last Admin: 03/25/18 08:49 Dose: Not Given Doxycycline Hyclate (Vibramycin) 100 mg PO BID [facility] Last Admin: 03/25/18 08:53 Dose: 100 mg Finasteride (Proscar) 5 mg PO QPM [facility] Last Admin: 03/24/18 20:15 Dose: 5 mg Fosinopril Sodium (Monopril) 20 mg PO DAILY [facility] Furosemide (Lasix) 20 mg SLOW IVP DAILY [facility] Last Admin: 03/25/18 08:53 Dose: 20 mg Gabapentin (Neurontin) 900 mg PO TID [facility] Last Admin: 03/25/18 16:22 Dose: 900 mg Glucagon (Glucagon) 1 mg IM PRN PRN PRN Reason: Hypoglycemia Heparin Sodium (Porcine) (Heparin) 5,000 units SC TID [facility] Last Admin: 03/25/18 16:23 Dose: 5,000 units Dextrose/Water (D5w) 1,000 mls @ 0 mls/hr IV .Q0M PRN; As Directed PRN Reason: Hypoglycemia Ceftriaxone Sodium 2 gm/Miscellaneous Medication 1 each/ Sodium Chloride 100 mls @ 200 mls/hr IVPB 2100 [facility] Last Admin: 03/24/18 21:13 Dose: 100 mls Insulin Human Regular (Humulin R) 0 units SC .MILD SLIDING SCALE PRN PRN Reason: Mild Correctional Scale Last Admin: 03/24/18 12:00 Dose: 3 unit Insulin Human Regular (Humulin R) 0 units SC .BEDTIME SLIDING SC PRN PRN Reason: Bedtime Correctional Scale Last Admin: 03/20/18 00:54 Dose: 2 unit Miscellaneous Medication (Pharmacy To Dose) 1 each IVPB ONE PRN PRN Reason: Pharmacy to dose Stop: 04/18/18 16:28 Nitroglycerin (Nitrostat) 0.4 mg PO Q5MIN PRN PRN Reason: Chest Pain Ondansetron HCl (Zofran Odt) 4 mg PO Q6H PRN PRN Reason: Nausea/Vomiting Last Admin: 03/21/18 14:58 Dose: 4 mg Ondansetron HCl (Zofran) 4 mg IVP Q6H PRN PRN Reason: Nausea/Vomiting Pantoprazole Sodium (Protonix) 40 mg PO BID [facility] Last Admin: 03/25/18 08:53 Dose: 40 mg Senna (Senokot) 2 tab PO HSPRN PRN PRN Reason: Constipation Sodium Chloride (Flush - Normal Saline) 10 ml IVF Q12HR [facility] Last Admin: 03/25/18 08:53 Dose: 10 ml Sodium Chloride (Flush - Normal Saline) 10 ml IVF PRN PRN PRN Reason: Saline Flush Tramadol HCl (Ultram) 50 mg PO QID PRN PRN Reason: Pain Last Admin: 03/24/18 20:16 Dose: 50 mg
[2018-03-25] MEDS: cefTRIAXone\\ROCEPHIN 2 GM, Admixture Fee 1 EACH in Sodium Chloride 0.9% 100 ML IVPB SCH (21:49)
[2018-03-25] MEDS: Finasteride 5 MG TAB PO SCH (21:51)
[2018-03-26] MEDS ORDERED: CEFAZOLIN/Water 2 GM/20 ML SYRINGE SLOW IVP SCH (05:15)
[2018-03-26 05:30] LABS: #Eosinphils 0.5 thou/uL (0.0-0.7); #Lymphocytes 1.6 thou/uL (1.20-3.40); #Monocytes 0.9 thou/uL (0.11-0.59); #Neutrophils 3.3 thou/uL (1.40-6.50); %Basophils 0.1 % (0.0-1.0); %Eosinophils 7.3 % (0.0-10.0); %Lymphocytes 25.7 % (21.0-51.0); %Monocytes 13.8 % (0.0-10.0); %Neutrophils 53.1 % (42.0-75.0); Hemoglobin 10.4 g/dL (14.0-18.0); Mean Corpuscular HGB CONC 33.1 g/dL (32.0-36.0); Mean Corpuscular Hemoglobin 31.3 pg (27.0-31.0); Mean Corpuscular Volume 94.4 fL (78.0-98.0); Mean Platelet Volume 7.6 fL (7.4-10.4); Platelet Count 158 thou/uL (130-400); RBC Distribution Width 12.1 % (11.5-14.5); Red Blood Cell (RBC) Count 3.34 mill/uL (4.70-6.10); White Blood Cell (WBC) Count 6.2 thou/uL (4.8-10.8)
[2018-03-26 05:37] LABS: Anion Gap 10 mmol/L (10-20); BUN (Urea Nitrogen) 11 mg/dL (8.4-25.7); Calc. Creatinine Clearance 59 mL/min (70-130); Calcium 8.9 mg/dL (7.8-10.44); Carbon Dioxide 30 mmol/L (23-31); Chloride 104 mmol/L (98-107); Estimated GFR-MDRD Greater than 90; Glucose 156 mg/dL (83-110); Potassium 3.8 mmol/L (3.5-5.1); Sodium 140 mmol/L (136-145)
[2018-03-26] MEDS: Arformoterol 15 MCG/2 ML NEB NEB SCH ×2 (06:05→18:38)
[2018-03-26] MEDS ORDERED: CEFAZOLIN/Water 2 GM/20 ML SYRINGE ONE (08:11)
[2018-03-26] MEDS ORDERED: Midazolam HCl 2 mg/2 ml Vial ONE (08:25)
[2018-03-26] MEDS ORDERED: Fentanyl 100 MCG/2 ML VIAL ONE (08:25)
[2018-03-26] MEDS ORDERED: Lidocaine 1% (PF) 30 ML VIAL ONE (08:28)
[2018-03-26] MEDS ORDERED: Amlodipine 5 MG TAB PO SCH ×2 (09:00→15:17)
[2018-03-26] MEDS: Doxycycline 100 MG CAP PO SCH ×2 (09:43→20:34)
[2018-03-26] MEDS: Gabapentin 300 MG CAP PO SCH ×3 (09:43→20:34)
[2018-03-26] MEDS: Furosemide 20 MG/2 ML VIAL SLOW IVP SCH (09:44)
[2018-03-26] MEDS: Docusate 100 MG CAP PO SCH ×2 (09:44→22:25)
[2018-03-26] MEDS: Heparin 5,000 UNITS/ML VIAL SC SCH ×3 (09:46→20:35)
[2018-03-26] MEDS: Cephalexin 250 MG CAP PO SCH ×2 (11:39→18:19)
[2018-03-26] MEDS ORDERED: Iopamidol 370 76% 50 ML VIAL FS ONE (12:11)
[2018-03-26] MEDS ORDERED: hydrALAZINE 20 MG/ML VIAL SLOW IVP PRN (15:43)
--- NOTE | 2018-03-26 15:48 | PDOC.PN ---
- Subjective Encounter Start Date: 03/26/18 Encounter Start Time: 10:30 Patient seen and examined for Sepsis. s/p permanent pacemaker. No new complaints. No overnight events - Objective Resuscitation Status: Resuscitation Status DNI:No Intubation MAR Reviewed: Yes Vital Signs & Weight: Vital Signs (12 hours) Temp Pulse Resp BP BP Pulse Ox 03/26/18 11:35 97.7 F 65 16 179/77 H 97 03/26/18 09:43 68 170/75 H 03/26/18 08:00 97.8 F 68 16 186/77 H 96 03/26/18 07:40 97.8 F 68 16 96 03/26/18 06:08 93 L 03/26/18 06:05 69 12 03/26/18 04:26 98.7 F 70 14 170/73 H 95 Weight Admit Weight 230 lb 9.656 oz Weight 238 lb Most Recent Monitor Data Heart Rate from ECG 70 NIBP 107/41 NIBP BP-Mean 80 Respiration from ECG 22 SpO2 97 I&O: 03/25/18 03/26/18 03/27/18 06:59 06:59 06:59 Intake Total 1360 580 Output Total 3100 1850 Balance -1740 -1270 Result Diagrams: 03/26/18 04:19 03/26/18 04:19 Additional Labs: Accuchecks 03/26/18 03/26/18 03/25/18 10:41 05:39 21:07 POC Glucose 139 H 153 H 206 H 03/25/18 16:51 POC Glucose 157 H EKG Reviewed by me: Yes (Tele paced) Phys Exam - Physical Examination Respiratory: no wheezing, no rhonchi Cardiovascular: RRR, no rub Gastrointestinal: soft, non-tender, positive bowel sounds Musculoskeletal: no edema Neurological: moves all 4 limbs Dx/Plan - Plan DVT proph w/SCDs IMPRESSION: 1. Sepsis with acute organ dysfunction secondary to right lower extremity cellulitis. improving 2. High-degree AV block s/p permanent pacemaker 3. N/V/Upper gastrointestinal bleeding - resolved- no recurrence - Lovenox on hold 4. Thrombocytopenia, probably secondary to sepsis - better 5. Diabetes mellitus type 2. on sliding scale PLAN: * Permanent pacemaker in AM * Cont Doxycycline * Start Keflex * Cont other current meds as below * Will increase Fosinopril to home dose * DC home in AM if stable Review of Systems - Review of Systems Respiratory: negative: Cough, Dry, Shortness of Breath, Hemoptysis, SOB with Excertion, Pleuritic Pain, Sputum, Wheezing Cardiovascular: negative: chest pain, palpitations, orthopnea, paroxysmal nocturnal dyspnea, edema, light headedness, other - Medications/Allergies Allergies/Adverse Reactions: Allergies Allergy/AdvReac Type Severity Reaction Status Date / Time ciprofloxacin [From Cipro] Allergy Verified 03/19/18 20:30 ciprofloxacin HCl Allergy Verified 03/19/18 20:30 [From Cipro] felodipine Allergy Verified 03/19/18 20:30 loratadine Allergy Verified 03/19/18 20:30 tiotropium bromide Allergy Verified 03/19/18 20:30 [From Spiriva with HandiHaler] venlafaxine HCl Allergy Verified 03/19/18 20:30 [From Effexor] Medications: Current Medications Acetaminophen (Tylenol) 650 mg PO Q4H PRN PRN Reason: Headache/Fever or Pain Acetaminophen (Tylenol) 650 mg IA Q4H PRN PRN Reason: Headache/Fever or Pain Al Hydroxide/Mg Hydroxide (Maalox) 30 ml PO Q6H PRN PRN Reason: Heartburn or Indigestion Albuterol Sulfate (Ventolin) 2.5 mg NEB [id number] PRN PRN Reason: SOB &/or Wheezing Last Admin: 03/22/18 18:56 Dose: 2.5 mg Arformoterol Tartrate (Brovana) 15 mcg NEB BID-RT [facility] Last Admin: 03/26/18 06:05 Dose: 15 mcg Artificial Tears (Tears Naturale) 0 drop EA EYE PRN PRN PRN Reason: Dry Eyes Last Admin: 03/24/18 08:48 Dose: 20 drop Calcium Carbonate (Tums) 1,000 mg PO Q4H PRN PRN Reason: Heartburn or Indigestion Cephalexin (Keflex) 500 mg PO Q6HR [facility] Stop: 04/02/18 06:01 Last Admin: 03/26/18 11:39 Dose: 500 mg Dextrose/Water (Dextrose 50%) 25 gm SLOW IVP PRN PRN PRN Reason: Hypoglycemia Docusate Sodium (Colace) 100 mg PO BID [facility] Last Admin: 03/26/18 09:44 Dose: Not Given Doxycycline Hyclate (Vibramycin) 100 mg PO BID [facility] Last Admin: 03/26/18 09:43 Dose: 100 mg Finasteride (Proscar) 5 mg PO QPM [facility] Last Admin: 03/25/18 21:51 Dose: 5 mg Fosinopril Sodium (Monopril) 40 mg PO DAILY [facility] Fosinopril Sodium (Monopril) 40 mg PO NOW [facility] Stop: 03/26/18 17:00 Furosemide (Lasix) 20 mg SLOW IVP DAILY [facility] Last Admin: 03/26/18 09:44 Dose: 20 mg Gabapentin (Neurontin) 900 mg PO TID [facility] Last Admin: 03/26/18 15:17 Dose: 900 mg Glucagon (Glucagon) 1 mg IM PRN PRN PRN Reason: Hypoglycemia Heparin Sodium (Porcine) (Heparin) 5,000 units SC TID [facility] Last Admin: 03/26/18 15:17 Dose: 5,000 units Hydralazine HCl (Apresoline) 10 mg SLOW IVP Q4H PRN PRN Reason: SBP Greater Than 180 Dextrose/Water (D5w) 1,000 mls @ 0 mls/hr IV .Q0M PRN; As Directed PRN Reason: Hypoglycemia Insulin Human Regular (Humulin R) 0 units SC .MILD SLIDING SCALE PRN PRN Reason: Mild Correctional Scale Last Admin: 03/24/18 12:00 Dose: 3 unit Insulin Human Regular (Humulin R) 0 units SC .BEDTIME SLIDING SC PRN PRN Reason: Bedtime Correctional Scale Last Admin: 03/20/18 00:54 Dose: 2 unit Nitroglycerin (Nitrostat) 0.4 mg PO Q5MIN PRN PRN Reason: Chest Pain Ondansetron HCl (Zofran Odt) 4 mg PO Q6H PRN PRN Reason: Nausea/Vomiting Last Admin: 03/21/18 14:58 Dose: 4 mg Ondansetron HCl (Zofran) 4 mg IVP Q6H PRN PRN Reason: Nausea/Vomiting Pantoprazole Sodium (Protonix) 40 mg PO BID [facility] Last Admin: 03/26/18 09:43 Dose: 40 mg Senna (Senokot) 2 tab PO HSPRN PRN PRN Reason: Constipation Sodium Chloride (Flush - Normal Saline) 10 ml IVF Q12HR [facility] Last Admin: 03/26/18 09:44 Dose: 10 ml Sodium Chloride (Flush - Normal Saline) 10 ml IVF PRN PRN PRN Reason: Saline Flush Tramadol HCl (Ultram) 50 mg PO QID PRN PRN Reason: Pain Last Admin: 03/24/18 20:16 Dose: 50 mg
--- NOTE | 2018-03-26 18:55 | PRG ---
DATE OF SERVICE: 03/26/2018 SUBJECTIVE: Mr. De La Cruz feeling better. He had a pacemaker placed. His cellulitis is improving. Less leg pain. No respiratory symptoms. No abdominal pain. OBJECTIVE: VITAL SIGNS: Normal. LUNGS: Clear. HEART: S1, S2, regular rate. ABDOMEN: Soft, not distended. LABORATORY DATA: White cell count is 6.2, hemoglobin 10.4, platelets 158, creatinine 0.75. Microbio logy with negative blood cultures. ASSESSMENT AND DISCUSSION: Chronic obstructive lung disease, type 2 diabetes, and episodes of cellul itis in the past with group B strep bacteremia, now admitted with recurrent cellulitis and bradycardi a status post pacemaker placement. DISCUSSION: The patient should be able to be transitioned to oral Keflex for discharge planning and maybe candidate for suppressive Pen-Vee K after completion of the acute phase of treatment. Continue Keflex for about 10 days after discharge.
[2018-03-26] MEDS: Finasteride 5 MG TAB PO SCH (20:34)
[2018-03-27] MEDS: Cephalexin 250 MG CAP PO SCH ×3 (00:54→11:58)
[2018-03-27 05:09] LABS: Anion Gap 10 mmol/L (10-20); BUN (Urea Nitrogen) 8 mg/dL (8.4-25.7); Calc. Creatinine Clearance 110 mL/min (70-130); Calcium 8.6 mg/dL (7.8-10.44); Carbon Dioxide 30 mmol/L (23-31); Chloride 104 mmol/L (98-107); Estimated GFR-MDRD Greater than 90; Glucose 185 mg/dL (83-110); Potassium 3.6 mmol/L (3.5-5.1); Sodium 140 mmol/L (136-145)
[2018-03-27] MEDS: Arformoterol 15 MCG/2 ML NEB NEB SCH (07:18)
[2018-03-27] MEDS: Furosemide 20 MG/2 ML VIAL SLOW IVP SCH (09:20)
[2018-03-27] MEDS: Doxycycline 100 MG CAP PO SCH (09:20)
[2018-03-27] MEDS: Heparin 5,000 UNITS/ML VIAL SC SCH ×2 (09:20→16:03)
[2018-03-27] MEDS: Gabapentin 300 MG CAP PO SCH ×2 (09:20→16:03)
[2018-03-27] MEDS: Docusate 100 MG CAP PO SCH (09:54)
--- NOTE | 2018-03-27 11:16 | PRG ---
DATE OF SERVICE: 03/27/2018 SUBJECTIVE: The patient seems to be doing okay. He had no complaints. He is anticipating being sen t home today. OBJECTIVE: VITAL SIGNS: On exam his temperature is 98.0, pulse 63, respiration 16, O2 sat 96%, and blood pressu re 157/67. HEENT: Unremarkable. NECK: No JVD. LUNGS: Diminished breath sounds in the bases. CARDIAC: S1 and S2, regular. ABDOMEN: Soft. EXTREMITIES: No edema. LABORATORY DATA: Sodium 140, potassium 3.6, chloride 104, CO2 of 30, BUN 8, creatinine 0.7, and gluc ose 185. ASSESSMENT: 1. Cellulitis. 2. Diabetes. 3. Chronic obstructive pulmonary disease. 4. Bradycardia. PLAN: He is to finish up antibiotics. He looks stable for transition to the next level of care.
--- NOTE | 2018-03-27 12:45 | PDOC.CTH ---
Cardiology Progress Note - Subjective The pt seen and examined. No overnight events. No cardiac complaints. He denied any pain or discomfort to the PM site. - Objective Vital Signs Temp Pulse Resp BP Pulse Ox 03/27/18 07:33 98.0 F 63 16 157/67 H 96 03/27/18 07:21 90 L 03/27/18 07:18 64 16 03/27/18 04:00 97.6 F 60 16 167/73 H 94 L Admit Weight 230 lb 9.656 oz Weight 233 lb 12.8 oz 03/26/18 03/27/18 03/28/18 06:59 06:59 06:59 Intake Total 580 350 Output Total 1850 3500 Balance -1270 -3150 - Physical Examination General/Neuro: alert & oriented x3 Neck: no JVD present Lungs: other: (diminished at bases) Heart: RRR Abdomen: soft Extremities: other: (mild BLE edemas) - Telemetry Telemetry Rhythm: SR 60s - Labs Result Diagrams: 03/26/18 04:19 03/27/18 04:34 Troponin/CKMB CK-MB (CK-2) 4.2 ng/mL (0-6.6) 03/19/18 15:08 Troponin I 0.095 ng/mL (< 0.028) H 03/19/18 20:45 - Assessment/Plan 1. 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 No discharge from the Pm site. 2. Sepsis 2/2 RLE cellulitis - improving; managed by ID 3. HTN - Fosinopril 40mg qd. 4. hx of GI bleeding - resolved; Lovenox is on hold; no recurrence at this moment. 4. Thrombocytopenia, probably secondary to sepsis - better 5. DM type 2 - managed by PCP MAR reviewed * From Cardiac standpoint, the pt is stable to d/c. The pt will f/u within 10 days for the site check at doctor's office and 1 month for initial PM check. Review of Systems - Review of Systems Constitutional: reports: no symptoms reported EENTM: reports: no symptoms reported Respiratory: reports: no symptoms reported Cardiac (ROS): reports: no symptoms reported ABD/GI: reports: no symptoms reported : reports: no symptoms reported Musculoskeletal: reports: no symptoms reported Skin: reports: no symptoms reported
--- NOTE | 2018-03-27 13:15 | RAD ---
PORTABLE CHEST: Date: 03/27/18 PROVIDED CLINICAL HISTORY: Post pacemaker. FINDINGS: Comparison with 03/19/18. Cardiac and mediastinal silhouette is unchanged in appearance. Left subclavian cardiac pacing device is now noted, the lead tips of which overlie expected locations of RA and RV. No focal consolidation, pleural fluid, or pneumothorax apparent. IMPRESSION: Post pacemaker placement without evidence for complication. POS: [facility]
[2018-03-27 16:57] VITALS: BP 175/78; TEMP 97.6
--- NOTE | 2018-03-28 20:20 | RAD ---
AP VIEW CHEST: 03/26/2018 HISTORY: Status post cardiac pacer placement. FINDINGS: AP view chest was obtained on 03/26/2018 but was sent to the PACS work station on the evening of 03/14. AP view chest demonstrates a dual-lead intracardiac pacing device in place. The lungs are well aerat ed. No evidence of pneumonia or pneumothorax is seen. IMPRESSION: Unremarkable AP view chest. POS: [facility]
--- NOTE | 2018-03-29 08:45 | DIS ---
DISCHARGE MEDICATION: Keflex 500 mg every 6 hourly for the next 10 days and Protonix 40 mg daily. Patient will need Pen-Vee K prophylaxis. After this, primary care physician advised to follow. Next, doxycycline 100 mg b.i.d. for the next 5 days. All other home medications were resumed. The patient wants to resume hospice at discharge. The patient was seen and examined on the day of discharge, denies any new complaints, no chest pain, shortness of breath, palpitations reported. BRIEF HOSPITAL COURSE: The patient is an 87-year-old white male with diabetes mellitus type 2, COPD, Streptococcal bacteremia secondary to cellulitis in 08/2017, presented to the hospital with fever an d chills along with hematemesis. He was found to have high-grade AV block in the emergency room. Hi s workup was consistent with right lower extremity cellulitis as well. Please refer to the history a nd physical for further details. The patient was admitted to the Intensive Care Unit with the above diagnosis. Patient was started on broad spectrum antibiotics. His cultures remained negative. His antibiotics have been changed to o ral Keflex. Doxycycline was also added for a short duration. He will need a Pen-Vee K antibiotic pr ophylaxis after completion of Keflex per Dr. Reeves. Patient was advised to call Dr. eReves' office fo r further details. On admission, patient was found to have high degree AV block. A temporary pacemaker was placed on ad mission. He underwent permanent pacemaker on 03/25/2018. He will continue Keflex for antibiotic pro phylaxis. Patient had episode of hematemesis on admission. This was probably secondary to gastritis. He was s een by Gastroenterology. He did not have any new recurrence of nausea, vomiting or hematemesis. He was advised to follow up with GI as outpatient. He did not require any endoscopies. The patient was also seen by Cardiology, Dr. Clinton during this hospital stay. While in the CCU, ezequiel vasquez was seen by Critical Care as well. He has been cleared by all the consultants for discharge. FINAL DIAGNOSES: 1. Sepsis with acute organ dysfunction secondary to right lower extremity cellulitis with suspected bacteremia. Cultures remain negative. 2. 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 He requir ed temporary pacemaker during this hospital stay. 3. Nausea, vomiting with hematemesis, resolved. 4. Thrombocytopenia secondary to sepsis, resolved. 5. Diabetes mellitus type 2. 6. Lactic acidosis, resolved. 7. Acute kidney injury, resolved. 8. Elevated troponin secondary to demand ischemia/sepsis. 9. Hypertension. 10. Cholelithiasis without any evidence of cholecystitis on ultrasound. 11. Chronic obstructive pulmonary disease. 12. Chronic postherpetic neuralgia on tramadol and gabapentin. 13. Benign prostatic hypertrophy. 14. Chronic anemia. 15. Obesity with a BMI 32.6. SIGNIFICANT LABORATORY DATA: 1. Creatinine on admission 1.89, at discharge 0.71. 2. CRP 15.9. 3. Troponin 0.119, lactic acid 3.1. 4. WBC on admission was 16.7 with 32% bandemia. At discharge, WBC 6.2. 5. CT scan of the abdomen and pelvis without contrast showed small hiatal hernia with cholelithiasis . Chest x-ray was negative for infiltrate. Abdominal ultrasound was negative for acute cholecystiti s. It showed cholelithiasis with gallbladder sludge. 6. Right lower extremity ultrasound was negative for DVT. Plan of care was discussed with the patient and the family at the bedside in detail. They stated und erstanding. Total time coordinating the discharge of this patient was 36 minutes.
== END 2018-03-27 17:02 | disposition hospice, home (50) | DRG 872 ==
LOC: ERS 11:09 → ERHOLD 16:56 → SURG A 19:34 → CCU 20:05 → IMCU/EMU 03-21 17:07 → 2NO 03-25 12:34
PROVIDERS: ADMIT Internal Medicine; ATTEND Internal Medicine
PROC: 5A1223Z Performance of Cardiac Pacing, Continuous (ICD-10-PCS; 2018-03-19)
PROC: 0JH606Z Insertion of Pacemaker, Dual Chamber into Chest Subcutaneous Tissue and Fascia, Open Approach (ICD-10-PCS; principal; 2018-03-26)
PROC: 02H63JZ Insertion of Pacemaker Lead into Right Atrium, Percutaneous Approach (ICD-10-PCS; 2018-03-26)
PROC: 02HK3JZ Insertion of Pacemaker Lead into Right Ventricle, Percutaneous Approach (ICD-10-PCS; 2018-03-26)
DX: A41.9 Sepsis, unspecified organism (principal); L03.115 Cellulitis of right lower limb; E87.2 Acidosis; N17.9 Acute kidney failure, unspecified; I24.8 Other forms of acute ischemic heart disease; B02.29 Other postherpetic nervous system involvement; D62 Acute posthemorrhagic anemia; E11.8 Type 2 diabetes mellitus with unspecified complications; R65.20 Severe sepsis without septic shock; J44.9 Chronic obstructive pulmonary disease, unspecified; K29.70 Gastritis, unspecified, without bleeding; I44.1 Atrioventricular block, second degree; D69.6 Thrombocytopenia, unspecified; K80.20 Calculus of gallbladder without cholecystitis without obstruction; N40.0 Benign prostatic hyperplasia without lower urinary tract symptoms; E66.9 Obesity, unspecified; Z68.32 Body mass index [BMI] 32.0-32.9, adult; R00.1 Bradycardia, unspecified; I44.7 Left bundle-branch block, unspecified; Z86.718 Personal history of other venous thrombosis and embolism; I11.0 Hypertensive heart disease with heart failure; I50.9 Heart failure, unspecified
CPT/HCPCS: 33208; 33210; 36005; 36415; 36416; 51702; 71045; 74176; 75820; 76705; 76942; 80048; 80053; 80202; 81003; 82271; 82274; 82553; 83605; 83735; 84100; 84443; 84484; 85025; 85610; 85730; 86140; 86850; 86900; 86901; 87040; 87086; 93005; 93306; 93798; 94640; 94760; 96365; 96367; 96375; 99152; 99153; 99292; A4216; C1769; C1785; C1898; C9113; G8978-GP-CL; G8979-GP-CJ; G8987-GO-CK; G8988-GO-CJ; J0696; J1644; J1650; J1940; J2001; J2250; J2543; J2765; J3010; J3370; J3475; J3490; J7050; J7611; Q0162

== ENCOUNTER 2019-04-10 09:42 | Inpatient (IN) | payer MEDICARE, OTHER ==
[2019-04-10 10:31] LABS: #Lymphocytes 1.1 thou/uL (1.20-3.40); #Monocytes 1.1 thou/uL (0.11-0.59); #Neutrophils 12.3 thou/uL (1.40-6.50); %Basophils 0.2 % (0.0-1.0); %Eosinophils 0.2 % (0.0-10.0); %Lymphocytes 7.8 % (21.0-51.0); %Monocytes 7.3 % (0.0-10.0); %Neutrophils 84.5 % (42.0-75.0); Hemoglobin 11.9 g/dL (14.0-18.0); Mean Corpuscular HGB CONC 33.6 g/dL (32.0-36.0); Mean Corpuscular Hemoglobin 31.1 pg (27.0-31.0); Mean Corpuscular Volume 92.8 fL (78.0-98.0); Mean Platelet Volume 8.7 fL (7.4-10.4); Platelet Count 121 thou/uL (130-400); RBC Distribution Width 12.1 % (11.5-14.5); Red Blood Cell (RBC) Count 3.84 mill/uL (4.70-6.10); White Blood Cell (WBC) Count 14.5 thou/uL (4.8-10.8)
[2019-04-10 10:52] LABS: ALT (SGPT) 14 U/L (8-55); AST (SGOT) 20 U/L (5-34); Albumin 3.7 g/dL (3.4-4.8); Alkaline Phosphatase 80 U/L (40-150); Anion Gap 11 mmol/L (10-20); BUN (Urea Nitrogen) 17 mg/dL (8.4-25.7); Bilirubin, Total 1.2 mg/dL (0.2-1.2); CK (CPK) 101 U/L (30-200); Calc. Creatinine Clearance 0 mL/min (70-130); Calcium 8.8 mg/dL (7.8-10.44); Carbon Dioxide 29 mmol/L (23-31); Chloride 98 mmol/L (98-107); Estimated GFR-MDRD 67; Globulin 2.8 g/dL (2.4-3.5); Glucose 211 mg/dL (83-110); Potassium 4.2 mmol/L (3.5-5.1); Protein, Total 6.5 g/dL (5.8-8.1); Sodium 134 mmol/L (136-145)
--- NOTE | 2019-04-10 11:06 | RAD ---
PORTABLE CHEST 1 VIEW: Date: 04/10/19 Time: 1004 hours HISTORY: Weakness, dizziness. FINDINGS: Comparison made with exam of 03/19/18. The heart size is normal. The aorta is tortuous. Left-sided pacemaker device remains in place. No lob ar consolidation, pneumothoraces, or pleural effusions are seen. There are degenerative changes in th e shoulder joints and acromioclavicular joints. IMPRESSION: No acute process. POS: [facility]
--- NOTE | 2019-04-10 11:25 | CT ---
CTA Angio Chest W WO Con 04/10/2019 10:53 AM Indication: COPD, CHF and generalized weakness Technique: Multiple CTA images were obtained of the thorax with IV contrast. 3D reformatted images were constructed from the raw data. Comparison: CT PE dated August 23, 2011 Findings: Pulmonary arteries: The degree of contrast enhancement of the pulmonary arteries limits evaluation o f the distal lobar and segmental branches. No definite central pulmonary embolus is evident. Heart and Great Vessels: There are coronary artery and thoracic aortic calcifications there is a toya l-lead pacemaker overlying left chest wall Lungs:There is an enlarging mixed solid and groundglass nodule within the right upper lobe. The groun dglass component measures 3.4 cm where previously measured 2.7 cm. The central solid component measures 1.5 cm were present measuring 1.2 cm. There is scattered centrilobular emphysema Pleural space: Clear. Upper Abdomen: No acute abnormality. Osseous Structures: There is diffuse osteopenia. No acute fracture or subluxation demonstrated. Ther e is scattered degenerative and osteoarthritic change present. Impression: 1. No central pulmonary embolus demonstrated. 2. Enlarging mixed solid and groundglass nodule within the right upper lobe suspicious for malignancy . Follow-up PET/CT is recommended for additional characterization.
[2019-04-10] MEDS ORDERED: ISOVUE-370 76%-LOCM 1 ML ONE (12:01)
[2019-04-10] MEDS ORDERED: Piperacillin/Tazobactam 4.5 GM VIAL ONE (12:13)
--- NOTE | 2019-04-10 12:28 | ULT ---
VENOUS DOPPLER ULTRASOUND OF THE LEFT LOWER EXTREMITY: Date: 04/10/19 HISTORY: Immobility, left lower extremity swelling, weakness. TECHNIQUE: Barber scale ultrasound with color flow and spectral Doppler imaging of the deep venous systems of the left lower extremity performed. FINDINGS: There is good flow, compression, and augmentation noted in the left common femoral, femoral, deep fem oral, popliteal, posterior tibial, and greater saphenous veins. Exam limited by patient positioning, scar tissue, and lack of mobility. IMPRESSION: No evidence of deep venous thrombosis in the left lower extremity. POS: [facility]
[2019-04-10] MEDS ORDERED: Gabapentin 300 MG CAP PO SCH (12:45)
[2019-04-10 13:57] LABS: Bacteria/HPF None Seen HPF (None Seen); Bilirubin Negative (Negative); Blood, Urine 3+ (Negative); Clarity Clear (Clear); Glucose, Urine (Dipstick) Normal (Negative); Leukocyte Negative Leu/uL (Negative); Mucous/LPF 1+ LPF (<2+); Nitrite Negative (Negative); Protein, Urine (Dipstick) 30 mg/dL (Neg-Trace); RBC/HPF Greater than 50 HPF (0-3); Squamous Epithelial 0-3 HPF (0-3); Urobilinogen Normal mg/dL (Less than 2); WBC/HPF 0-3 HPF (0-3)
[2019-04-10] MEDS ORDERED: traMADol HCl 50 MG TAB ONE (14:09)
[2019-04-10] MEDS ORDERED: PROVENTIL INHALER 6.7 G (200 INHALATIONS) INH PRN (16:04)
[2019-04-10] MEDS ORDERED: traMADol HCl 50 MG TAB PO PRN (16:04)
[2019-04-10] MEDS ORDERED: Lidocaine 5% Patch TD PRN (16:04)
[2019-04-10] MEDS ORDERED: Lidocaine Patch Removal 1 EACH TOP PRN (16:18)
[2019-04-10] MEDS ORDERED: Senokot S 8.6-50 MG TAB PO PRN (16:44)
[2019-04-10] MEDS ORDERED: Acetaminophen 325 MG TAB PO PRN (16:44)
[2019-04-10] MEDS ORDERED: Ondansetron PF 4 MG/2 ML Vial IVP PRN (16:44)
[2019-04-10] MEDS ORDERED: Bisacodyl 10 MG SUPP PR PRN (16:44)
[2019-04-10] MEDS ORDERED: Ondansetron ODT 4 MG TAB PO PRN (16:44)
[2019-04-10] MEDS ORDERED: Calcium Carbonate 500 MG ChewTAB PO PRN (16:44)
[2019-04-10] MEDS ORDERED: Vancomycin HCl 1 GM in Premix Bag 1 BAG IVPB SCH (16:45)
[2019-04-10 16:49] VITALS: BMI 30.7
[2019-04-10] MEDS: cefTRIAXone\\ROCEPHIN 1 GM in Sodium Chloride 0.9% 100 ML IVPB SCH (17:31)
--- NOTE | 2019-04-10 17:31 | HP ---
PRIMARY CARE: Tomeka Guo. PRIMARY OVERHEAD CLEANER: Dr. David. PRIMARY BIZTALK CONSULTANT: Dr. Whitmore. CHIEF COMPLAINT: Generalized weakness. HISTORY OF PRESENT ILLNESS: The patient is an 88-year-old white male with diabetes mellitus type 2, hypertension with recurrent right lower extremity cellulitis, presented to the emergency room with above complaints. Last admission to this facility was in March of 2018 for right lower extremity cellulitis. He completed the antibiotic and the infection resolved. He did not take the chronic suppressive therapy since he was unable to see Dr. Reeves as outpatient due to chronic low back pain. Over the last 24 hours, the patient has been feeling generally weak and fatigued. He felt dizzy and almost passed out this morning. He denies any loss of consciousness. He also felt nauseous and vomited once. There was no hematemesis. He has generalized body aches. He also was short of breath on exertion. He felt feverish; however, did not record his temperature. No chest pain, palpitations, or focal neurologic deficit reported. The daughter noticed this morning that his right leg was significantly warm along with redness. There was minimum swelling reported. PAST MEDICAL HISTORY: 1. Recurrent lower extremity cellulitis. 2. Second-degree type 2 AV block, status post permanent pacemaker in March 2018. 3. Diabetes mellitus, type 2. 4. COPD. 5. Chronic herpetic neuralgia, on tramadol and gabapentin. 6. Degenerative joint disease. 7. Benign prostatic hypertrophy. 8. Chronic anemia. 9. History of DVT in the past. 10. History of group B Streptococcal bacteremia in August of 2017. PAST SURGICAL HISTORY: 1. Appendectomy. 2. Finger repair after a saw accident. ALLERGIES: THE PATIENT IS ALLERGIC TO CIPROFLOXACIN, LORATADINE, SPIRIVA, VENLAFAXINE, AND LATEX. CURRENT HOME MEDICATIONS: 1. Gabapentin 900 mg four times a day. 2. Albuterol inhaler as needed. 3. Aspirin 81 mg daily. 4. Symbicort 160/4.5 two puffs b.i.d. 5. Proscar 5 mg daily. 6. Lasix 40 mg daily. 7. Lidocaine patch as needed. 8. Tramadol 50 mg three times a day. 9. Protonix 40 mg daily. SOCIAL HISTORY: The patient currently lives at home with his family. No smoking, alcohol, or drug use. He is do not resuscitate, this was verified with the patient. His spouse is the primary decision maker. FAMILY HISTORY: Negative for heart disease or malignancy. REVIEW OF SYSTEMS: All other review of systems was reviewed and found negative. PHYSICAL EXAMINATION: VITAL SIGNS: Temperature 99, respirations of 22, pulse of 90, blood pressure of 115/87, and O2 saturation 92% on 2 L nasal cannula. Repeat O2 saturations were 95% on room air. GENERAL: An 88-year-old male with generalized weakness. HEENT: Head, atraumatic and normocephalic. Sclerae are anicteric no oral lesion. NECK: Supple. No JVD appreciated. No carotid bruit. LUNGS: Clear to auscultation bilaterally with diminished air entry at bases. No wheezing, rales, or rhonchi. HEART: S1 and S2 present, regular rate and rhythm. No rubs or gallops. ABDOMEN: Soft, nontender. Bowel sounds present. No rebound or guarding. EXTREMITIES: No calf tenderness or swelling in the left lower extremity. There is significant warmth along with erythema in the right lower extremity. SKIN: Warm and dry. Other findings as discussed above. LYMPH NODES: No palpable lymph nodes in the neck. PERIPHERAL VASCULAR: Radial pulses palpable bilaterally. MUSCULOSKELETAL: No joint swelling or tenderness. LABORATORY FINDINGS: WBC 14.5, hemoglobin 11.9, hematocrit 35.6, platelets 121. Troponin of 0.038. Sodium 134, potassium 4.2, chloride 98, bicarb 29, BUN 17, creatinine 1.05. Urinalysis was negative for wbc or bacteria, specific gravity 1.052. Influenza testing was negative. Left lower extremity Doppler was negative. Chest x-ray by my review was negative for infiltrate. CT angiogram of the chest was negative for pulmonary embolism. It showed right upper lobe nodule, suspicious for malignancy. IMPRESSION: 1. Generalized weakness. 2. Sepsis secondary to right lower extremity cellulitis. 3. Right lower extremity cellulitis. 4. 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 5. Diabetes mellitus, type 2. 6. Thrombocytopenia. 7. Second-degree AV block, status post pacemaker, last admission. 8. Chronic obstructive pulmonary disease. 9. Chronic postherpetic neuralgia. 10. Benign prostatic hypertrophy. 11. Chronic anemia. 12. Hyponatremia. 13. Chronically elevated troponins. PLAN: The patient will be monitored on the medical floor. Do not resuscitate was verified. His home medications will be restarted. Blood cultures have been obtained. We will start him on vancomycin and ceftriaxone pending cultures. Infectious Disease and Pulmonary consultation will be obtained. Resume gabapentin and tramadol. Recheck labs in a.m. Physical Therapy and Occupational Therapy consultation. Plan of care was discussed with the patient and the family in the bedside. They stated understanding. Job ID: [id number]
[2019-04-10] MEDS: Gabapentin 300 MG CAP PO SCH ×2 (17:33→23:58)
[2019-04-10] MEDS: Mometasone/Formoterol 120 PUFF INHALER INH SCH (19:06)
[2019-04-10] MEDS: Vancomycin HCl 1.5 GM in Sodium Chloride 0.9% 250 ML 300 ML IVPB SCH (19:51)
[2019-04-10] MEDS: traMADol HCl 50 MG TAB PO SCH (19:51)
[2019-04-10] MEDS: Finasteride 5 MG TAB PO SCH (19:53)
[2019-04-11 04:46] LABS: ALT (SGPT) 10 U/L (8-55); AST (SGOT) 18 U/L (5-34); Albumin 3.2 g/dL (3.4-4.8); Alkaline Phosphatase 62 U/L (40-150); Anion Gap 10 mmol/L (10-20); BUN (Urea Nitrogen) 24 mg/dL (8.4-25.7); Bilirubin, Total 1.1 mg/dL (0.2-1.2); Calc. Creatinine Clearance 65 mL/min (70-130); Calcium 8.7 mg/dL (7.8-10.44); Carbon Dioxide 31 mmol/L (23-31); Chloride 99 mmol/L (98-107); Estimated GFR-MDRD 64; Globulin 2.6 g/dL (2.4-3.5); Glucose 143 mg/dL (83-110); Magnesium 1.8 mg/dL (1.6-2.6); Potassium 4.1 mmol/L (3.5-5.1); Protein, Total 5.8 g/dL (5.8-8.1); Sodium 136 mmol/L (136-145)
[2019-04-11 04:50] LABS: #Lymphocytes 2.1 thou/uL (1.20-3.40); #Monocytes 1.2 thou/uL (0.11-0.59); %Basophils 0.1 % (0.0-1.0); %Eosinophils 0.3 % (0.0-10.0); %Lymphocytes 18.2 % (21.0-51.0); %Neutrophils 70.4 % (42.0-75.0); Hemoglobin 10.5 g/dL (14.0-18.0); Mean Corpuscular Hemoglobin 31.6 pg (27.0-31.0); Mean Corpuscular Volume 93.1 fL (78.0-98.0); Mean Platelet Volume 8.1 fL (7.4-10.4); Platelet Count 99 thou/uL (130-400); Platelet Morphology Comment Appears Decreased; RBC Distribution Width 12.4 % (11.5-14.5); Red Blood Cell (RBC) Count 3.33 mill/uL (4.70-6.10); White Blood Cell (WBC) Count 11.3 thou/uL (4.8-10.8)
[2019-04-11] MEDS: Gabapentin 300 MG CAP PO SCH ×3 (05:23→17:30)
[2019-04-11] MEDS: Mometasone/Formoterol 120 PUFF INHALER INH SCH ×2 (07:03→19:14)
[2019-04-11] MEDS ORDERED: Enoxaparin Sodium 40 MG/0.4 ML SYRINGE SC SCH (09:00)
[2019-04-11] MEDS: Aspirin 81 mg Enteric Coated Tablet PO SCH (09:20)
[2019-04-11] MEDS: traMADol HCl 50 MG TAB PO SCH ×3 (09:20→21:15)
[2019-04-11] MEDS: Furosemide 40 MG TAB PO SCH (09:21)
[2019-04-11] MEDS ORDERED: Polyethylene Glycol 3350 17 GM Packet PO PRN (12:07)
[2019-04-11] MEDS ORDERED: Insulin Regular 300 UNITS/3 ML VIAL SC PRN (12:15)
[2019-04-11] MEDS ORDERED: Dextrose 50% Abboject 50 ML SYRINGE SLOW IVP PRN (12:15)
[2019-04-11] MEDS ORDERED: Dextrose 5% in Water 1,000 ML IV PRN (12:15)
[2019-04-11] MEDS: cefTRIAXone\\ROCEPHIN 1 GM in Sodium Chloride 0.9% 100 ML IVPB SCH (17:29)
--- NOTE | 2019-04-11 18:06 | PDOC.HOSPP ---
- Subjective Subjective: Patient seen and examined for Sepsis. Feels better. No N/V. Appetite improving. No diarrhea. No new complaints. No overnight events - Objective Vital Signs & Weight: Vital Signs (12 hours) Temp Pulse Resp BP BP Pulse Ox 04/11/19 16:00 98.2 F 78 18 129/53 L 91 L 04/11/19 11:38 98.0 F 61 18 112/55 L 92 L 04/11/19 08:00 93 L 04/11/19 07:31 97.8 F 65 20 127/57 L 93 L 04/11/19 07:05 97 04/11/19 07:03 67 16 97 Weight Weight 220 lb I&O: 04/10/19 04/11/19 04/12/19 06:59 06:59 06:59 Intake Total 360 400 Output Total 250 Balance 360 150 Result Diagrams: 04/11/19 04:10 04/11/19 04:10 Additional Labs: Accuchecks 04/11/19 04/11/19 04/11/19 16:53 11:35 04:28 POC Glucose 163 H 177 H 149 H 04/10/19 22:44 POC Glucose 198 H Microbiology 03/19/18 16:41 Urine clean catch Urine Culture - Final NO GROWTH AT 36 HOURS 03/19/18 15:20 Venous blood - Left Hand Blood Culture - Preliminary NO GROWTH AT 48 HOURS 03/19/18 15:08 Venous blood - Right Hand Blood Culture - Preliminary NO GROWTH AT 48 HOURS Laboratory Tests 04/11/19 04:10 C-Reactive Protein 16.56 H Radiology Reviewed by me: Yes (CTA - Lung lesion) ROS - Review of Systems All systems: All other ROS were reviewed and found negative. Respiratory: denies: cough, dry, shortness of breath, hemoptysis, SOB with excertion, pleuritic pain, sputum, wheezing, other Cardiovascular: denies: chest pain, palpitations, orthopnea, paroxysmal noc. dyspnea, edema, light headedness, other Gastrointestinal: denies: nausea, vomitting, abdominal pain, diarrhea, constipation, melena, hematochezia, other - Medication Medications: Active Medications Generic Name Dose Route Start Last Admin Trade Name Freq PRN Reason Stop Dose Admin Aspirin 81 mg 04/11/19 09:00 04/11/19 09:20 Ecotrin PO 81 mg DAILY MARLEY Administration Finasteride 5 mg 04/10/19 21:00 04/10/19 19:53 Proscar PO 5 mg QPM [facility]LEY Administration Furosemide 40 mg 04/11/19 09:00 04/11/19 09:21 Lasix PO 40 mg DAILY [facility] Administration Gabapentin 900 mg 04/10/19 18:00 04/11/19 17:30 Neurontin PO 900 mg Q6HR [facility] Administration Ceftriaxone Sodium 1 gm/ 100 mls @ 200 mls/hr 04/10/19 17:00 04/11/19 17:29 Sodium Chloride IVPB 100 mls Q24HR [facility] Administration Vancomycin HCl 1.5 gm/ Sodium 300 mls @ 200 mls/hr 04/10/19 20:00 04/10/19 19 :51 Chloride IVPB 300 mls 2000 MARLEY Administration Mometasone Furoate/Formoterol Fumar 2 puff 04/10/19 18:30 04/11/19 07:03 Dulera 200 Mcg/5 Mcg Inhaler INH 2 puff BID-RT [facility]LEY Administration Pantoprazole Sodium 40 mg 04/11/19 09:00 04/11/19 09:21 Protonix PO 40 mg DAILY [facility] Administration Tramadol HCl 50 mg 04/10/19 21:00 04/11/19 14:35 Ultram PO 50 mg TID [facility]LEY Administration - Exam NAD Neck: supple, no JVD Heart: RRR, no gallops Respiratory: CTAB, no rales Gastrointestinal: soft, non-tender, non-distended, normal bowel sounds Extremities: no cyanosis, 2+ LE edema (with RL erythema) Neurological: no new deficit Psychiatric: normal affect, A&O x 3 Hosp A/P - Plan IMPRESSION: 1. Generalized weakness. 2. Sepsis secondary to right lower extremity cellulitis. 3. 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 4. Thrombocytopenia. 5. Diabetes mellitus, type 2. 6. Chronic postherpetic neuralgia. 7. Second-degree AV block, status post pacemaker, last admission. 8. Chronic obstructive pulmonary disease. 9. Chronic respiratory failure on home O2 10. Benign prostatic hypertrophy. 11. Chronic anemia. 12. Hyponatremia. 13. Chronically elevated troponins in indeterminate range. PLAN: Cont IV Vancomycin/Ceftriaxone Monitor Vancomycin level Await Pulmonary input Cont other home meds including Gabapentin and Tramadol Add sliding scale Hold Lovenox due to thrombocytopenia Await blood cultures
[2019-04-11] MEDS ORDERED: Clopidogrel Bisulfate 75 MG TAB ONE ×2 (20:37→21:20)
--- NOTE | 2019-04-11 20:53 | CON ---
DATE OF CONSULTATION: 04/11/2019 REASON FOR CONSULTATION: Cellulitis recurrence. HISTORY OF PRESENT ILLNESS: An 88-year-old patient, I had seen in March 2018 when he presented with a history of type 2 diabetes, COPD, prior group B strep cellulitis with bacteremia and then in March, I saw him again with fever, vomiting, and erythema in the right lower extremity. Impression was recurrence of cellulitis. He did not have bacteremia the second time around and for some reason, he did not get to take his preventive penicillin regimen and presented to the emergency room with weakness which developed the day of admission, diffuse body aches and redness and pain in the right lower extremity below the calf. BP 115-87, pulse 90, respirations 22, temperature 99 and pulse ox was 98. Exam with diminished breath sounds, edema in lower extremity and cellulitis. Laboratory results, white cell count 14.5, hemoglobin 11.9, platelets 121 with 84% neutrophils. Chemistry with a creatinine of 1.08. Liver profile normal. CRP 16.56. Albumin 3.2. Urinalysis with 0-3 wbc' s. Microbiology thus far no growth in 2 sets of cultures. Mr. De La Cruz is awake. He is having moderate pain in the right lower extremity, but feeling a little better. No headaches. No shortness of breath. No abdominal pain. No diarrhea. No genitourinary symptoms. PAST MEDICAL HISTORY: Type 2 diabetes, hypertension, COPD, prior DVT, group B strep bacteremia in 2017, recurrent cellulitis in 2018, herpes zoster with chronic postherpetic neuralgia for the past 7 years, localized to the left flank, radiating to the lower extremity, managed with gabapentin. PAST SURGICAL HISTORY: Appendectomy, finger repair. ALLERGIES: CIPRO, LORATADINE, SPIRIVA, VENLAFAXINE, AND LATEX. SOCIAL HISTORY: Never a smoker, lives in [place] with family. MEDICATIONS: Currently receiving; 1. Tylenol. 2. Proventil. 3. Ecotrin. 4. Dulcolax. 5. Tums. 6. Ceftriaxone. 7. Folic acid. 8. Insulin. 9. Vancomycin. PHYSICAL EXAMINATION: VITAL SIGNS: Temperature has been normal. BP 120/53, pulse 78, respirations 18 , O2 saturation 91. SKIN: With a circumferential erythema in the right lower extremity starting at the level of the calf all the way to the foot and ankle and passing the entire foot. The patient has no lymphadenopathy. HEENT: Ocular movements conjugate. Numerous missing teeth. NECK: Supple. LUNGS: Symmetric, clear breath sounds. No crackles or wheezing. HEART: S1, S2. Regular rate. Diminished heart sounds. No murmurs. ABDOMEN: Not distended. Not tender. No ascites. The bladder may be distended. : No genital abnormalities. EXTREMITIES: The patient has osteoarthrosis. The left leg is normal. The right leg is erythematous as noted. Pulses are normal in the lower extremities. There is tenderness on palpation of the leg on right side. NEURO: Nonfocal. LABORATORY DATA: White cell count 11.3, hemoglobin 10.5, platelets 99. ASSESSMENT: History of hyperlipidemia, hypertension, prior episodes of recurrent cellulitis one time with group B strep bacteremia, type 2 diabetes. Recurrence of inflammatory changes, R leg/foot without foot ulcer. DISCUSSION: The patient has recurrence of cellulitis, most likely due to beta-hemolytic Streptococcus. Continue Rocephin. Once the patient is clinically ready, he can be discharged on oral Keflex for a few days and then transitioned to suppressive penicillin VK 250 mg twice daily for 1 year plus compression stockings. Job ID: [id number] [facility]
[2019-04-11] MEDS: Saccharomyces boulardii 250 MG CAP PO SCH (20:59)
[2019-04-11] MEDS: Vancomycin HCl 1.5 GM in Sodium Chloride 0.9% 250 ML 300 ML IVPB SCH (21:14)
[2019-04-11] MEDS: Finasteride 5 MG TAB PO SCH (21:15)
[2019-04-12] MEDS: Gabapentin 300 MG CAP PO SCH ×4 (01:01→17:53)
--- NOTE | 2019-04-12 01:22 | CON ---
DATE OF CONSULTATION: 04/11/2019 HISTORY OF PRESENT ILLNESS: Pardeep De La Cruz is a very pleasant gentleman who is 88 years of age. He is followed by Dr. Whitmore. He started having some foot discomfort and erythema and swelling for a couple of days prior to admission. He subsequently was admitted. He started on treatment for cellulitis. He says his foot is feeling better. PAST MEDICAL HISTORY: Remarkable for, 1. Diabetes. 2. Hypertension. 3. COPD. 4. History of DVT. 5. History of group B strep bacteremia in 2017. 6. History of cellulitis in 2018. 7. History of shingles with post herpetic neuralgia. 8. History of an appendectomy. 9. History of surgery on a finger. SOCIAL HISTORY: He is a nonsmoker and nondrinker. ALLERGIES: REPORTED TO CIPRO, LORATADINE, SPIRIVA, VENLAFAXINE, AND LATEX. MEDICATIONS: Have been reviewed. FAMILY HISTORY: Negative for lung disease in early age. REVIEW OF SYSTEMS: A 10-point review of systems completed, otherwise, negative. PHYSICAL EXAMINATION: GENERAL: Pardeep De La Cruz is a very pleasant gentleman who is 88 years of age. VITAL SIGNS: He is afebrile. Heart rate in the 70s, blood pressure is 120/53, respiratory rate 18. HEENT: Pupils are equal. Sclerae anicteric. NECK: Supple. LUNGS: Clear. HEART: Regular rhythm. S1 and S2 are normal. No murmur. ABDOMEN: Soft and nontender. EXTREMITIES: Without clubbing or cyanosis. He does have erythema group home up to his knee on the right with swelling of his right foot compared to his left. LABORATORY DATA: He had a CT pulmonary angiogram that showed a small density at his apex in his right lung. This is oblong. The outer margins have more of a hazy appearance and a solid appearance. He had no thromboembolic disease. His Doppler of his left leg was negative, but his right lower extremity is the leg that was abnormal. IMPRESSION: 1. Cellulitis. 2. Density in his right upper lobe. It can be followed up as an outpatient. He is not sure at 88 years of age if he wants to do anything about this. We can document that this is PET avid, at a later date actually significantly enlarging in developing appearance that it is more worrisome for malignancy could be considered for stereotactic radiation I suppose and he says he might consider that, but surgeries or biopsies are not in the future at least based on how he feels at this time. 3. I will be happy to follow the other physicians caring for him. His chronic obstructive pulmonary disease appears to be stable. I will add some Brovana twice a day with some budesonide. Hopefully, he will not have any respiratory issues while he is in the hospital. This is a 50 minute consult, with greater than 50% of time spent on unit coordinating care. Job ID: [id number] [id number]
[2019-04-12 06:21] LABS: INR-International Normal Ratio 1.3; Prothrombin Time 16.1 SEC (12.0-14.7)
[2019-04-12 06:22] LABS: PTT 49.9 SEC (22.9-36.1)
[2019-04-12 06:33] LABS: Band 8 % (5-11); Eosinophils 2 % (0-10); Hemoglobin 11.1 g/dL (14.0-18.0); Lymphocytes 19 % (21-51); MDiff Complete? YES; Mean Corpuscular HGB CONC 32.8 g/dL (32.0-36.0); Mean Corpuscular Hemoglobin 30.7 pg (27.0-31.0); Mean Corpuscular Volume 93.6 fL (78.0-98.0); Mean Platelet Volume 8.3 fL (7.4-10.4); Monocytes 14 % (0-10); Neutrophil 57 % (42-75); Platelet Count 110 thou/uL (130-400); Platelet Morphology Comment Appears Decreased; RBC Distribution Width 12.6 % (11.5-14.5); Red Blood Cell (RBC) Count 3.62 mill/uL (4.70-6.10); White Blood Cell (WBC) Count 8.8 thou/uL (4.8-10.8)
[2019-04-12] MEDS: Arformoterol 15 MCG/2 ML NEB NEB SCH ×2 (06:49→21:48)
[2019-04-12] MEDS: Mometasone/Formoterol 120 PUFF INHALER INH SCH ×2 (06:49→21:48)
[2019-04-12] MEDS: Budesonide 0.5 MG/2 ML NEB INH SCH ×2 (06:50→21:48)
[2019-04-12 06:51] LABS: ALT (SGPT) 12 U/L (8-55); AST (SGOT) 20 U/L (5-34); Albumin 3.2 g/dL (3.4-4.8); Alkaline Phosphatase 72 U/L (40-150); Anion Gap 11 mmol/L (10-20); BUN (Urea Nitrogen) 17 mg/dL (8.4-25.7); Bilirubin, Total 0.8 mg/dL (0.2-1.2); Calc. Creatinine Clearance 85 mL/min (70-130); Calcium 8.7 mg/dL (7.8-10.44); Carbon Dioxide 30 mmol/L (23-31); Chloride 99 mmol/L (98-107); Estimated GFR-MDRD 87; Glucose 141 mg/dL (83-110); Magnesium 1.8 mg/dL (1.6-2.6); Protein, Total 6.2 g/dL (5.8-8.1); Sodium 136 mmol/L (136-145)
[2019-04-12] MEDS: Aspirin 81 mg Enteric Coated Tablet PO SCH (08:28)
[2019-04-12] MEDS: Folic Acid 1 MG TAB PO SCH (08:28)
[2019-04-12] MEDS: Multivit, Therapeutic 1 TAB PO SCH (08:29)
[2019-04-12] MEDS: Furosemide 40 MG TAB PO SCH (08:29)
[2019-04-12] MEDS: Cyanocobalamin (Vitamin B-12) 1,000 MCG TAB PO SCH (08:29)
[2019-04-12] MEDS: traMADol HCl 50 MG TAB PO SCH ×3 (08:30→20:18)
[2019-04-12] MEDS ORDERED: Saccharomyces boulardii 250 MG CAP PO SCH (09:00)
--- NOTE | 2019-04-12 13:52 | PRG ---
DATE OF SERVICE: 04/12/2019 SUBJECTIVE: Mr. De La Cruz is doing well. He has no complaints other than still has discomfort in his right foot. OBJECTIVE: VITAL SIGNS: Afebrile, heart rate 59, respiratory rate 18, oximetry is 93, and blood pressure 153/64. LUNGS: Clear. HEART: Regular rhythm. ABDOMEN: Soft. EXTREMITIES: Right lower extremity still swollen and warm, looks tiny bit better than yesterday. LABORATORY DATA: White count 8.8, hemoglobin 11.1, platelets 110. Electrolytes are normal. IMPRESSION: 1. Cellulitis. 2. Pulmonary nodule that will be followed as an outpatient. 3. Underlying chronic obstructive pulmonary disease. 4. Advanced age. 5. Do not resuscitate status. 6. Desire not to have an extensive workup of a nodule if it does become larger or start to become more suggestive of malignancy. 7. We will continue to follow the other physicians caring for him. We will continue with IV antibiotics for now. 8. Interesting note that the venogram done in the ER is reported to be left lower extremity. He has swelling with the right lower extremity. I am hopeful that this is actually right lower extremity venogram. We will contact Radiology. Job ID: [id number]
[2019-04-12] MEDS: cefTRIAXone\\ROCEPHIN 1 GM in Sodium Chloride 0.9% 100 ML IVPB SCH (15:44)
[2019-04-12] MEDS ORDERED: Methyl Salicylate/Menthol 85 GM TUBE TOP PRN (16:09)
--- NOTE | 2019-04-12 17:47 | PRG ---
DATE OF SERVICE: 04/12/2019 SUBJECTIVE: Feeling about the same. The pain in the leg is still about the same. No respiratory symptoms or abdominal pain. Voiding without difficulty. OBJECTIVE: VITAL SIGNS: Vital signs with a normal temperature, blood pressure 150/60, pulse 64. GENERAL: Awake, alert, oriented. LUNGS: Clear. HEART: S1 and S2 regular rate. ABDOMEN: Soft, not distended. EXTREMITIES: Right foot still with the circumferential erythema may be not as bright as on admission. Still with edema there. LABORATORY DATA: Show improvement in white cell count down to 8.8, hemoglobin 11, and creatinine 0.83. Blood cultures are negative. ASSESSMENT AND DISCUSSION: Type 2 diabetes, hyperlipidemia, group B strep bacteremia in the past, now with recurrence of cellulitis, right leg. Continue Rocephin and then transition to Keflex once further improved. In view of the white cell count improvement predict accelerated improvement in the next 2 days. Hopefully, he will be able to go home by Thursday on Keflex and then transition to suppressive Pen VK 250 mg twice daily for 1 year. Job ID: [id number] [facility]
[2019-04-12] MEDS: Saccharomyces boulardii 250 MG CAP PO SCH (20:17)
[2019-04-12] MEDS: Finasteride 5 MG TAB PO SCH (20:19)
--- NOTE | 2019-04-12 22:41 | PDOC.HOSPP ---
- Subjective Subjective: Patient seen and examined for Sepsis. Feeling better. RLE erythema slowly improving. No fever/chills. No new complaints. No overnight events - Objective Vital Signs & Weight: Vital Signs (12 hours) Temp Pulse Resp BP BP Pulse Ox 04/12/19 19:21 98.3 F 70 18 146/66 H 93 L 04/12/19 16:00 97.7 F 64 18 154/65 H 94 L 04/12/19 11:00 98.1 F 59 L 18 153/64 H 93 L Weight Weight 220 lb I&O: 04/11/19 04/12/19 04/13/19 06:59 06:59 06:59 Intake Total 360 2090 1690 Output Total 1700 1650 Balance 360 390 40 Result Diagrams: 04/12/19 05:32 04/12/19 05:32 Additional Labs: Accuchecks 04/12/19 04/12/19 04/12/19 19:27 16:34 11:44 POC Glucose 190 H 160 H 160 H 04/12/19 04:09 POC Glucose 141 H ROS - Review of Systems All systems: All other ROS were reviewed and found negative. Respiratory: denies: cough, dry, shortness of breath, hemoptysis, SOB with excertion, pleuritic pain, sputum, wheezing, other Cardiovascular: denies: chest pain, palpitations, orthopnea, paroxysmal noc. dyspnea, edema, light headedness, other Gastrointestinal: denies: nausea, vomitting, abdominal pain, diarrhea, constipation, melena, hematochezia, other - Medication Medications: Active Medications Generic Name Dose Route Start Last Admin Trade Name [place] PRN Reason Stop Dose Admin Arformoterol Tartrate 15 mcg 04/12/19 06:30 04/12/19 06:49 Brovana NEB 15 mcg BID-RT MARLEY Administration Aspirin 81 mg 04/11/19 09:00 04/12/19 08:28 Ecotrin PO 81 mg DAILY MARLEY Administration Budesonide 0.5 mg 04/12/19 06:30 04/12/19 06:50 Pulmicort Neb Solution INH 0.5 mg BID-RT MARLEY Administration Cyanocobalamin 1,000 mcg 04/12/19 09:00 04/12/19 08:29 Vitamin B-12 PO 1,000 mcg DAILY MARLEY Administration Finasteride 5 mg 04/10/19 21:00 04/12/19 20:19 Proscar PO 5 mg QPM MARLEY Administration Folic Acid 1 mg 04/12/19 09:00 04/12/19 08:28 Folvite PO 1 mg DAILY MARLEY Administration Furosemide 40 mg 04/11/19 09:00 04/12/19 08:29 Lasix PO 40 mg DAILY MARLEY Administration Gabapentin 900 mg 04/10/19 18:00 04/12/19 17:53 Neurontin PO 900 mg Q6HR MARLEY Administration Ceftriaxone Sodium 1 gm/ 100 mls @ 200 mls/hr 04/10/19 17:00 04/12/19 15:44 Sodium Chloride IVPB 100 mls Q24HR MARLEY Administration Menthol/Methyl Salicylate 1 gm 04/12/19 16:09 04/12/19 17:55 Muscle Rub Cream (Bengay) TOP 1 gm QID PRN Administration Mild Pain (1-3) Mometasone Furoate/Formoterol Fumar 2 puff 04/10/19 18:30 04/12/19 06:49 Dulera 200 Mcg/5 Mcg Inhaler INH 2 puff BID-RT MARLEY Administration Multivitamins 1 tab 04/12/19 09:00 04/12/19 08:29 Theragran PO 1 tab DAILY MARLEY Administration Pantoprazole Sodium 40 mg 04/11/19 09:00 04/12/19 08:28 Protonix PO 40 mg DAILY MARLEY Administration Saccharomyces Boulardii 250 mg 04/11/19 21:00 04/12/19 20:17 Florastor PO 250 mg HS MARLEY Administration Sodium Chloride 10 ml 04/10/19 16:44 04/11/19 22:57 Flush - Normal Saline IVF 10 ml PRN PRN Administration Saline Flush Tramadol HCl 50 mg 04/10/19 16:04 04/12/19 04:20 Ultram PO 50 mg Q6H PRN Administration Moderate Pain (4-6) Tramadol HCl 50 mg 04/10/19 21:00 04/12/19 20:18 Ultram PO 50 mg TID MARLEY Administration - Exam NAD Heart: RRR, no rubs Respiratory: CTAB, no rales Gastrointestinal: soft, non-tender, normal bowel sounds Extremities: 1+ LE edema (RLE erythema +) Psychiatric: A&O x 3 Hosp A/P - Plan IMPRESSION: 1. Generalized weakness. 2. Sepsis secondary to right lower extremity cellulitis. 3. 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 4. Thrombocytopenia - prob due to Sepsis 5. Diabetes mellitus, type 2. 6. Chronic postherpetic neuralgia. 7. Second-degree AV block, status post pacemaker, last admission. 8. Chronic obstructive pulmonary disease. 9. Chronic respiratory failure on home O2 10. Benign prostatic hypertrophy. 11. Chronic anemia. 12. Hyponatremia. 13. Chronically elevated troponins in indeterminate range. PLAN: Cont IV Ceftriaxone DC Vancomycin Cont other home meds as above Cont sliding scale Lovenox on hold due to thrombocytopenia [facility] [place]
[2019-04-13] MEDS: Gabapentin 300 MG CAP PO SCH ×4 (00:40→17:50)
[2019-04-13] MEDS: Budesonide 0.5 MG/2 ML NEB INH SCH ×2 (07:21→20:25)
[2019-04-13] MEDS: Arformoterol 15 MCG/2 ML NEB NEB SCH ×2 (07:22→20:26)
[2019-04-13] MEDS: Mometasone/Formoterol 120 PUFF INHALER INH SCH ×2 (07:30→20:27)
[2019-04-13] MEDS ORDERED: Doxycycline 100 MG CAP PO SCH (09:30)
[2019-04-13] MEDS: traMADol HCl 50 MG TAB PO SCH ×3 (10:12→20:13)
[2019-04-13] MEDS: Aspirin 81 mg Enteric Coated Tablet PO SCH (10:12)
[2019-04-13] MEDS: Furosemide 40 MG TAB PO SCH (10:13)
[2019-04-13] MEDS: Multivit, Therapeutic 1 TAB PO SCH (10:13)
[2019-04-13] MEDS: Folic Acid 1 MG TAB PO SCH (10:13)
[2019-04-13] MEDS: Cyanocobalamin (Vitamin B-12) 1,000 MCG TAB PO SCH (10:13)
[2019-04-13] MEDS: Insulin Regular 300 UNITS/3 ML VIAL SC PRN (12:36)
--- NOTE | 2019-04-13 17:04 | PRG ---
DATE OF SERVICE: SUBJECTIVE: A little bit less pain but turning lathe tender. They were having difficulty in accessing his peripheral IVs. May need a midline. OBJECTIVE: VITAL SIGNS: Temperature 98.4, BP 150/60, pulse 69. GENERAL: Awake, alert, oriented. LUNGS: Clear. S1 and S2, regular rate. ABDOMEN: Soft, not distended. EXTREMITIES: Right leg with improvement, less swelling. Redness is a bit more violaceous in nature as we typically see in the resolution phase of cellulitis. LABORATORY DATA: White cell count getting better down to 8.8. ASSESSMENT AND DISCUSSION: Type 2 diabetes, hyperlipidemia, group B strep bacteremia in the past, now with recurrences of cellulitis in right leg with improvement. Continue Rocephin, probably few more days and then transition to Keflex for discharge planning. Maybe in 2 days he would be able to go home. After that, Alfonso ALVARENGA, suppressive therapy for 12 months. Job ID: [id number]
[2019-04-13] MEDS: cefTRIAXone\\ROCEPHIN 1 GM in Sodium Chloride 0.9% 100 ML IVPB SCH (17:49)
[2019-04-13] MEDS: Saccharomyces boulardii 250 MG CAP PO SCH (20:12)
[2019-04-13] MEDS: Doxycycline 100 MG CAP PO SCH (20:12)
[2019-04-13] MEDS: Finasteride 5 MG TAB PO SCH (20:12)
--- NOTE | 2019-04-13 20:14 | PDOC.HOSPP ---
- Subjective Subjective: Patient seen and examined for RLE Cellulitis. No fever/chills. No new complaints. No overnight events - Objective Vital Signs & Weight: Vital Signs (12 hours) Temp Pulse Resp BP Pulse Ox 04/13/19 11:10 98.4 F 69 22 H 152/65 H 93 L Weight Weight 220 lb I&O: 04/12/19 04/13/19 04/14/19 06:59 06:59 06:59 Intake Total 2090 1690 Output Total 1700 1650 Balance 390 40 Result Diagrams: 04/12/19 05:32 04/12/19 05:32 Additional Labs: Accuchecks 04/13/19 04/13/19 04/13/19 16:39 11:14 04:05 POC Glucose 128 H 251 H 127 H 04/12/19 19:27 POC Glucose 190 H ROS - Review of Systems All systems: All other ROS were reviewed and found negative. Respiratory: denies: cough, dry, shortness of breath, hemoptysis, SOB with excertion, pleuritic pain, sputum, wheezing, other Cardiovascular: denies: chest pain, palpitations, orthopnea, paroxysmal noc. dyspnea, edema, light headedness, other Gastrointestinal: denies: nausea, vomitting, abdominal pain, diarrhea, constipation, melena, hematochezia, other - Medication Medications: Active Medications Generic Name Dose Route Start Last Admin Trade Name Freq PRN Reason Stop Dose Admin Arformoterol Tartrate 15 mcg 04/12/19 06:30 04/13/19 07:22 Brovana NEB 15 mcg BID-RT MARLEY Administration Aspirin 81 mg 04/11/19 09:00 04/13/19 10:12 Ecotrin PO 81 mg DAILY MARLEY Administration Budesonide 0.5 mg 04/12/19 06:30 04/13/19 07:21 Pulmicort Neb Solution INH 0.5 mg BID-RT MARLEY Administration Cyanocobalamin 1,000 mcg 04/12/19 09:00 04/13/19 10:13 Vitamin B-12 PO 1,000 mcg DAILY MARLEY Administration Finasteride 5 mg 04/10/19 21:00 04/12/19 20:19 Proscar PO 5 mg QPM MARLEY Administration Folic Acid 1 mg 04/12/19 09:00 04/13/19 10:13 Folvite PO 1 mg DAILY MARLEY Administration Furosemide 40 mg 04/11/19 09:00 04/13/19 10:13 Lasix PO 40 mg DAILY MARLEY Administration Gabapentin 900 mg 04/10/19 18:00 04/13/19 17:50 Neurontin PO 900 mg Q6HR MARLEY Administration Ceftriaxone Sodium 1 gm/ 100 mls @ 200 mls/hr 04/10/19 17:00 04/13/19 17:49 Sodium Chloride IVPB 100 mls Q24HR MARLEY Administration Insulin Human Regular 0 units 04/11/19 12:15 04/13/19 12:36 Humulin R SC 4 unit .MILD SLIDING SCALE PRN Administration Mild Correctional Scale Menthol/Methyl Salicylate 1 gm 04/12/19 16:09 04/12/19 17:55 Muscle Rub Cream (Bengay) TOP 1 gm QID PRN Administration Mild Pain (1-3) Mometasone Furoate/Formoterol Fumar 2 puff 04/10/19 18:30 04/13/19 07:30 Dulera 200 Mcg/5 Mcg Inhaler INH 2 puff BID-RT MARLEY Administration Multivitamins 1 tab 04/12/19 09:00 04/13/19 10:13 Theragran PO 1 tab DAILY MARLEY Administration Pantoprazole Sodium 40 mg 04/11/19 09:00 04/13/19 10:13 Protonix PO 40 mg DAILY MARLEY Administration Saccharomyces Boulardii 250 mg 04/11/19 21:00 04/12/19 20:17 Florastor PO 250 mg HS MARLEY Administration Sodium Chloride 10 ml 04/10/19 16:44 04/11/19 22:57 Flush - Normal Saline IVF 10 ml PRN PRN Administration Saline Flush Tramadol HCl 50 mg 04/10/19 16:04 04/12/19 04:20 Ultram PO 50 mg Q6H PRN Administration Moderate Pain (4-6) Tramadol HCl 50 mg 04/10/19 21:00 04/13/19 17:27 Ultram PO Not Given TID MARLEY - Exam NAD Heart: RRR, no rubs Respiratory: CTAB, no rales Gastrointestinal: soft, non-tender, normal bowel sounds Extremities: 1+ LE edema (RLE with erythema) Hosp A/P - Plan IMPRESSION: 1. Generalized weakness - multifactorial 2. Sepsis secondary to right lower extremity cellulitis. 3. 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 4. Thrombocytopenia - prob due to Sepsis. Lovenox on hold 5. Diabetes mellitus, type 2 - on sliding scale 6. Chronic postherpetic neuralgia. 7. Second-degree AV block, status post pacemaker, last admission. 8. Chronic obstructive pulmonary disease. 9. Chronic respiratory failure on home O2 10. Benign prostatic hypertrophy. 11. Chronic anemia. 12. Hyponatremia. 13. Chronically elevated troponins in indeterminate range. PLAN: Cont IV Ceftriaxone for 2 more days per ID Cont Doxycycline Cont other home meds as above HH with platelets in AM
--- NOTE | 2019-04-13 21:18 | PRG ---
DATE OF SERVICE: 04/13/2019 SUBJECTIVE: Mr. De La Cruz has no new complaints. His foot still hurts, but improving slightly every day. OBJECTIVE: VITAL SIGNS: He is afebrile. Heart rate in the 60s, respiratory rate 16, and oximetry is 93. Blood cultures remain negative. LUNGS: Clear. HEART: Regular rhythm. ABDOMEN: Soft and nontender. EXTREMITIES: He had compression stocking on his right leg. This has been removed. IMPRESSION: 1. Cellulitis, slowly improving. 2. Chronic obstructive pulmonary disease, followed by Dr. Whitmore, clinically stable. 3. Pulmonary nodule that will be followed as an outpatient. 4. History of diabetes. 5. Lipid disorder. 6. Group B streptococcus bacteremia in the past. Overall, appears to be stable, slowly improving. I do think he is responding to therapy. Job ID: [id number]
[2019-04-14] MEDS: Gabapentin 300 MG CAP PO SCH ×4 (00:15→17:28)
[2019-04-14 06:18] LABS: Platelet Count 131 thou/uL (130-400)
[2019-04-14] MEDS: Arformoterol 15 MCG/2 ML NEB NEB SCH ×2 (06:37→18:30)
[2019-04-14 06:38] LABS: Anion Gap 8 mmol/L (10-20); BUN (Urea Nitrogen) 12 mg/dL (8.4-25.7); Calc. Creatinine Clearance 88 mL/min (70-130); Carbon Dioxide 32 mmol/L (23-31); Chloride 99 mmol/L (98-107); Estimated GFR-MDRD Greater than 90; Glucose 137 mg/dL (83-110); Potassium 3.4 mmol/L (3.5-5.1); Sodium 136 mmol/L (136-145)
[2019-04-14] MEDS: Budesonide 0.5 MG/2 ML NEB INH SCH ×2 (06:42→18:30)
[2019-04-14] MEDS: Mometasone/Formoterol 120 PUFF INHALER INH SCH ×2 (06:52→18:31)
[2019-04-14] MEDS: traMADol HCl 50 MG TAB PO SCH ×3 (07:39→21:02)
[2019-04-14] MEDS: Cyanocobalamin (Vitamin B-12) 1,000 MCG TAB PO SCH (07:40)
[2019-04-14] MEDS: Potassium Chloride 10 MEQ TAB PO SCH ×2 (07:40→16:18)
[2019-04-14] MEDS: Multivit, Therapeutic 1 TAB PO SCH (07:40)
[2019-04-14] MEDS: Aspirin 81 mg Enteric Coated Tablet PO SCH (07:40)
[2019-04-14] MEDS: Doxycycline 100 MG CAP PO SCH ×2 (07:40→21:03)
[2019-04-14] MEDS: Folic Acid 1 MG TAB PO SCH (07:41)
--- NOTE | 2019-04-14 11:18 | PRG ---
DATE OF SERVICE: 04/14/2019 SUBJECTIVE: Pardeep De La Cruz remains stable. OBJECTIVE: VITAL SIGNS: He is afebrile, heart rate 62, respiratory rate is 20, oximetry is 93% on 2 L, and blood pressure 166/63. LUNGS: Clear. HEART: Regular rhythm. ABDOMEN: Soft. EXTREMITIES: His erythema in his foot is almost completely resolved. LABORATORY DATA: Hemoglobin is 11. Sodium 136, potassium 3.4, chloride 99, bicarb 32, BUN 12, and creatinine 0.8. ASSESSMENT: 1. Chronic obstructive pulmonary disease, clinically stable. 2. Cellulitis. Antibiotic recommendations are per Dr. Reeves. PLAN: Apparently, he was supposed to be on antibiotic suppression therapy, but was not. He is still on Rocephin. He is also on doxycycline. Discharge will be determined with the input of Infectious Disease. Overall, he is stable. Job ID: [id number]
[2019-04-14] MEDS: Insulin Regular 300 UNITS/3 ML VIAL SC PRN (12:36)
[2019-04-14] MEDS: cefTRIAXone\\ROCEPHIN 1 GM in Sodium Chloride 0.9% 100 ML IVPB SCH (16:18)
--- NOTE | 2019-04-14 18:07 | PDOC.HOSPP ---
- Subjective Subjective: Patient seen and examined for Sepsis. No fever or chills. Feels better. No new complaints. No overnight events - Objective Vital Signs & Weight: Vital Signs (12 hours) Temp Pulse Resp BP Pulse Ox 04/14/19 17:09 98.5 F 65 18 162/71 H 93 L 04/14/19 11:00 98.6 F 72 20 135/56 L 94 L 04/14/19 07:44 97.4 F L 62 20 166/63 H 93 L 04/14/19 06:37 63 12 98 Weight Weight 220 lb I&O: 04/13/19 04/14/19 04/15/19 06:59 06:59 06:59 Intake Total 1690 510 Output Total 1650 500 Balance 40 10 Result Diagrams: 04/14/19 05:56 04/14/19 05:56 Additional Labs: Accuchecks 04/14/19 04/14/19 04/14/19 16:34 11:14 05:23 POC Glucose 162 H 217 H 136 H 04/13/19 20:21 POC Glucose 184 H ROS - Review of Systems All systems: All other ROS were reviewed and found negative. Respiratory: denies: cough, dry, shortness of breath, hemoptysis, SOB with excertion, pleuritic pain, sputum, wheezing, other Cardiovascular: denies: chest pain, palpitations, orthopnea, paroxysmal noc. dyspnea, edema, light headedness, other - Medication Medications: Active Medications Generic Name Dose Route Start Last Admin Trade Name Freq PRN Reason Stop Dose Admin Arformoterol Tartrate 15 mcg 04/12/19 06:30 04/14/19 06:37 Brovana NEB 15 mcg BID-RT MARLEY Administration Aspirin 81 mg 04/11/19 09:00 04/14/19 07:40 Ecotrin PO 81 mg DAILY MARLEY Administration Budesonide 0.5 mg 04/12/19 06:30 04/14/19 06:42 Pulmicort Neb Solution INH 0.5 mg BID-RT MARLEY Administration Cyanocobalamin 1,000 mcg 04/12/19 09:00 04/14/19 07:40 Vitamin B-12 PO 1,000 mcg DAILY MARLEY Administration Doxycycline Hyclate 100 mg 04/13/19 21:00 04/14/19 07:40 Vibramycin PO 100 mg BID MARLEY Administration Finasteride 5 mg 04/10/19 21:00 04/13/19 20:12 Proscar PO 5 mg QPM MARLEY Administration Folic Acid 1 mg 04/12/19 09:00 04/14/19 07:41 Folvite PO 1 mg DAILY MARLEY Administration Furosemide 40 mg 04/11/19 09:00 04/13/19 10:13 Lasix PO 40 mg DAILY MARLEY Administration Gabapentin 900 mg 04/10/19 18:00 04/14/19 17:28 Neurontin PO 900 mg Q6HR MARLEY Administration Ceftriaxone Sodium 1 gm/ 100 mls @ 200 mls/hr 04/10/19 17:00 04/14/19 16:18 Sodium Chloride IVPB 100 mls Q24HR MARLEY Administration Insulin Human Regular 0 units 04/11/19 12:15 04/14/19 12:36 Humulin R SC 3 unit .MILD SLIDING SCALE PRN Administration Mild Correctional Scale Menthol/Methyl Salicylate 1 gm 04/12/19 16:09 04/12/19 17:55 Muscle Rub Cream (Bengay) TOP 1 gm QID PRN Administration Mild Pain (1-3) Mometasone Furoate/Formoterol Fumar 2 puff 04/10/19 18:30 04/14/19 06:52 Dulera 200 Mcg/5 Mcg Inhaler INH 2 puff BID-RT MARLEY Administration Multivitamins 1 tab 04/12/19 09:00 04/14/19 07:40 Theragran PO 1 tab DAILY MARLEY Administration Pantoprazole Sodium 40 mg 04/11/19 09:00 04/14/19 07:40 Protonix PO 40 mg DAILY MARLEY Administration Potassium Chloride 10 meq 04/14/19 08:00 04/14/19 16:18 Klor-Con 10 PO 10 meq BID-WM MARLEY Administration Saccharomyces Boulardii 250 mg 04/11/19 21:00 04/13/19 20:12 Florastor PO 250 mg HS MARLEY Administration Sodium Chloride 10 ml 04/10/19 16:44 04/11/19 22:57 Flush - Normal Saline IVF 10 ml PRN PRN Administration Saline Flush Tramadol HCl 50 mg 04/10/19 16:04 04/12/19 04:20 Ultram PO 50 mg Q6H PRN Administration Moderate Pain (4-6) Tramadol HCl 50 mg 04/10/19 21:00 04/14/19 16:19 Ultram PO 50 mg TID MARLEY Administration - Exam NAD Heart: RRR, no rubs Respiratory: CTAB, no rales Gastrointestinal: soft, non-tender, normal bowel sounds Extremities: 1+ LE edema (RLE erythema improving) Psychiatric: A&O x 3 Hosp A/P - Plan IMPRESSION: 1. Generalized weakness - multifactorial 2. Sepsis secondary to right lower extremity cellulitis. 3. 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 4. Thrombocytopenia - prob due to Sepsis. Lovenox on hold 5. Diabetes mellitus, type 2 - on sliding scale 6. Chronic postherpetic neuralgia. 7. Second-degree AV block, status post pacemaker, last admission. 8. Chronic obstructive pulmonary disease. 9. Chronic respiratory failure on home O2 10. Benign prostatic hypertrophy. 11. Chronic anemia. 12. Hyponatremia/Hypokalemia. 13. Chronically elevated troponins in indeterminate range. PLAN: Replace Potassium Cont IV Ceftriaxone for 1 more day per ID Cont oral Doxycycline Cont other home meds as above Keflex suppressive Rx after completion of Atbx course [facility] arranged DC in AM if stable
[2019-04-14] MEDS: Finasteride 5 MG TAB PO SCH (21:02)
[2019-04-14] MEDS: Saccharomyces boulardii 250 MG CAP PO SCH (21:03)
[2019-04-15] MEDS: Gabapentin 300 MG CAP PO SCH ×3 (01:17→12:58)
[2019-04-15] MEDS: Budesonide 0.5 MG/2 ML NEB INH SCH (07:14)
[2019-04-15] MEDS: Arformoterol 15 MCG/2 ML NEB NEB SCH (07:15)
[2019-04-15] MEDS: Mometasone/Formoterol 120 PUFF INHALER INH SCH (07:16)
[2019-04-15] MEDS: Potassium Chloride 10 MEQ TAB PO SCH (08:25)
[2019-04-15] MEDS: Cyanocobalamin (Vitamin B-12) 1,000 MCG TAB PO SCH (08:25)
[2019-04-15] MEDS: Multivit, Therapeutic 1 TAB PO SCH (08:26)
[2019-04-15] MEDS: Folic Acid 1 MG TAB PO SCH (08:26)
[2019-04-15] MEDS: traMADol HCl 50 MG TAB PO SCH ×2 (08:26→15:32)
[2019-04-15] MEDS: Aspirin 81 mg Enteric Coated Tablet PO SCH (08:26)
[2019-04-15] MEDS: Doxycycline 100 MG CAP PO SCH (08:26)
[2019-04-15] MEDS: cefTRIAXone\\ROCEPHIN 1 GM in Sodium Chloride 0.9% 100 ML IVPB SCH (13:58)
[2019-04-15 15:36] VITALS: BP 162/68; TEMP 97.8
--- NOTE | 2019-04-15 20:39 | DIS ---
DATE OF ADMISSION: 04/10/2019 DATE OF DISCHARGE: 04/15/2019 DISCHARGE DISPOSITION: Home with [facility]. CODE STATUS: Do not resuscitate. FOLLOW UP: With Infectious Disease, Dr. Reeves, Pulmonary, Dr. Whitmore in 2 to 3 weeks. Follow up with primary care physician Tomeka Guo in 1 week. DISCHARGE MEDICATION: 1. Keflex 500 mg 3 times daily for the next 10 days. 2. The patient will start penicillin VK 250 mg twice a day for one year per Infectious Disease recommendation. Primary care physician advised to follow. The patient will also follow up with [facility], Dr. Whitmore. BRIEF HOSPITAL COURSE: The patient is an 88-year-old male with diabetes mellitus type 2, hypertension, and recurrent cellulitis, presented to the emergency room with generalized weakness. Please refer to the history and physical for further details. The patient was admitted to the hospital with a diagnosis of sepsis secondary to right lower extremity cellulitis. He was started on IV ceftriaxone and vancomycin. He was evaluated by Infectious Disease, Dr. Reeves. Dr. Reeves discontinued vancomycin. He completed 5 days of IV antibiotics. IV ceftriaxone will be changed to oral. Per Dr. Reeves' recommendation, he will start penicillin VK suppressive therapy for 12 months. All other home medications were left unchanged. His blood culture remained negative. LABORATORY DATA: WBC on admission 14.5, repeat was normal at 8.8. Potassium 3.4, replaced. CRP 16.59. Troponin 0.038. CT scan of the chest showed enlarged mixed solid and ground-glass nodule within the right upper lobe suspicious for malignancy. A followup PET/CT scan is recommended. The patient will follow up with Dr. Whitmore. FINAL DIAGNOSES: 1. Generalized weakness. 2. Sepsis secondary to right lower extremity cellulitis. 3. 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 4. Diabetes mellitus type 2. 5. Thrombocytopenia. 6. History of second-degree AV block on last admission requiring pacemaker placement. 7. Chronic obstructive pulmonary disease. 8. Chronic postherpetic neuralgia. 9. Benign prostatic hypertrophy. 10. Chronic anemia. 11. Chronically elevated troponin. 12. Hyponatremia. 13. Hypokalemia. 14. Obesity with a BMI of 30.7. 15. Do not resuscitate. Plan of care was discussed with the patient in detail. He stated understanding. Total time coordinating the discharge of this patient was 33 minute. The patient understands the risks associated with long-term antibiotics. Job ID: [id number]
== END 2019-04-15 15:54 | disposition home health service (06) | DRG 872 ==
LOC: ERS 09:42 → T4-B 14:32
PROVIDERS: ADMIT Internal Medicine; ATTEND Internal Medicine
DX: A41.9 Sepsis, unspecified organism (principal); L03.115 Cellulitis of right lower limb; B02.29 Other postherpetic nervous system involvement; Z66 Do not resuscitate; E87.1 Hypo-osmolality and hyponatremia; C34.31 Malignant neoplasm of lower lobe, right bronchus or lung; J96.10 Chronic respiratory failure, unspecified whether with hypoxia or hypercapnia; E11.9 Type 2 diabetes mellitus without complications; I10 Essential (primary) hypertension; J44.9 Chronic obstructive pulmonary disease, unspecified; N40.0 Benign prostatic hyperplasia without lower urinary tract symptoms; D69.6 Thrombocytopenia, unspecified; D64.9 Anemia, unspecified; E78.5 Hyperlipidemia, unspecified; R79.89 Other specified abnormal findings of blood chemistry; E87.6 Hypokalemia; Z86.718 Personal history of other venous thrombosis and embolism; Z90.49 Acquired absence of other specified parts of digestive tract; Z88.1 Allergy status to other antibiotic agents; Z88.8 Allergy status to other drugs, medicaments and biological substances; Z79.82 Long term (current) use of aspirin
CPT/HCPCS: 36415; 36416; 71045; 71275; 80048; 80053; 81003; 81015; 82550; 82553; 83735; 84484; 85014; 85018; 85025; 85049; 85610; 85730; 86140; 87040; 87804; 93005; 94640; 96365; J0696; J1650; J1815; J2543; J3370; J3490; J7050; J7626; Q9966